=== PATIENT | male | born 1965 | race Caucasian/White ===

== ENCOUNTER 2023-05-13 12:27 | Outpatient (CLI) | payer MEDICAID, SELFPAY ==
--- NOTE | 2023-05-13 12:35 | XRR_ITS ---
PROCEDURE INFORMATION: Exam: XR Cervical Spine Exam date and time: 05/13/2023 12:51 PM Age: 58 years old Clinical indication: Injury or trauma; Fall; Concussion/head injury; Injury date: About a month ago; Additional info: Neuropathy in hands TECHNIQUE: Imaging protocol: Radiologic exam of the cervical spine. Views: 2 or 3 views. COMPARISON: No relevant prior studies available. FINDINGS: Bones/joints: Alignment is normal. Vertebral body height is maintained. There is moderate disc degeneration in the cervical spine. There is moderate multilevel facet spondylosis. No definite fracture is visible. The cervical spine is imaged through visible through C7 on the lateral view. The base of the dens is obscured on the lateral view by atlantodental osteophytes. The dens is also partially obscured by the teeth on the open-mouth view. Soft tissues: Visible soft tissues are unremarkable. XR/XR cervical spine 3V* [id number] IMPRESSION: 1. No acute findings. 2. Limited visualization of C1-C2. If there is clinical suspicion of fracture then CT is recommended. 3. Moderate cervical disc and facet degeneration.
--- NOTE | 2023-05-13 12:35 | XRR_ITS ---
PROCEDURE INFORMATION: Exam: XR Skull Exam date and time: 05/13/2023 12:51 PM Age: 58 years old Clinical indication: Injury or trauma; Fall; Blunt trauma (contusions or hematomas); Injury date: About a month ago; Additional info: Head truama TECHNIQUE: Imaging protocol: XR of the skull. Views: Minimum of 4 views. COMPARISON: No relevant prior studies available. FINDINGS: Sinuses: Paranasal sinuses are clear. Bones/joints: The skull is intact. Visible facial bones are unremarkable. Diffuse cervical disc degeneration. Soft tissues: Visible soft tissues are unremarkable. Other findings: Mastoids are well aerated. XR/XR skull min 4V* [id number] IMPRESSION: No acute findings.
== END 2023-05-13 12:28 | disposition home or self-care (01) ==
PROVIDERS: PCP Family Medicine; Visit Provider Family Medicine
DX: M50.30 Other cervical disc degeneration, unspecified cervical region (principal); M47.812 Spondylosis without myelopathy or radiculopathy, cervical region; G89.29 Other chronic pain; I10 Essential (primary) hypertension; Z86.718 Personal history of other venous thrombosis and embolism; W19.XXXA Unspecified fall, initial encounter
CPT/HCPCS: 70260; 72040; 80053; 80061; 83036; 84439; 84443; 85025; 85610

== ENCOUNTER → 2023-05-21 16:07 | Outpatient (BNVA) | payer MEDICAID, SELFPAY | PROVIDERS: PCP Family Medicine; Visit Provider Registered Nurse Neonatal Intensive Care | DX: R31.9 Hematuria, unspecified (principal) | CPT/HCPCS: 81000 ==

== ENCOUNTER 2023-05-27 07:08 | Outpatient (CLI) | payer MEDICAID, SELFPAY ==
--- NOTE | 2023-05-27 07:15 | MR_ITS ---
WS: [id number] MRI CERVICAL SPINE NONCONTRAST HISTORY: neck pain, neuropathy bilateral hands/feet with weakness COMPARISON: None available. Technique: Multiplanar, multisequence noncontrast imaging of the cervical spine. Mild straightening of the normal cervical lordosis. No fractures or marrow edema. Abnormal signal in the cervical cord at C3-4 extends over length of 12 mm. No syrinx. Craniocervical junction, C1 and C2 relationship, odontoid process and soft tissues are normal. C2-C3: Mild disc bulging and osteophytic ridging. Very mild bilateral foraminal stenosis. C3-C4: Marked annular disc bulge with a focal 6 central disc protrusion effacing CSF and displacing t he ventral cord. Marked ligamentum flavum and facet arthritis. There is a small amount of edema in th e facets, greatest on the RIGHT. Severe central and bilateral foraminal stenosis. Cord myelomalacia a t this level. C4-C5: Mild annular disc bulging with bilateral facet joint arthritis. Osteophytic ridging. Mild cent ral with moderate bilateral foraminal stenosis and moderate facet arthritis. C5-C6: Mild annular disc bulging with osteophytic ridging and moderate bilateral facet joint arthriti s. Mild central and RIGHT foraminal stenosis. Moderate LEFT foraminal stenosis. C6-C7: Diffuse annular disc bulging and osteophytic ridging. Moderate bilateral facet joint arthritis . Mild central and moderate bilateral foraminal stenosis. C7-T1: Mild to moderate bilateral foraminal stenosis. No significant central stenosis. Paraspinal soft tissue are normal. MR/MR cervical spin wo con* [id number] IMPRESSION: 1. Severe central and bilateral foraminal stenosis at C3-4 due to multiple fac tors including disc disease and facet joint arthritis and osteophytes. 2. Cervical cord myelomalacia at the C3-4 level extends over length of 12 mm. 3. C4-5 and C6-7: Moderate bilateral foraminal stenosis and mild central steno sis. 4. C5-6: Mild central and RIGHT foraminal stenosis with moderate LEFT foramina l stenosis. 5. C7-T1: Mild to moderate bilateral foraminal stenosis.
== END 2023-05-27 07:09 | disposition home or self-care (01) ==
PROVIDERS: PCP Family Medicine; Visit Provider Family Medicine
DX: M48.02 Spinal stenosis, cervical region (principal); M50.31 Other cervical disc degeneration, high cervical region; M25.78 Osteophyte, vertebrae; G95.89 Other specified diseases of spinal cord; G62.9 Polyneuropathy, unspecified; G89.29 Other chronic pain; R53.1 Weakness
CPT/HCPCS: 72141

== ENCOUNTER → 2023-06-03 08:26 | Outpatient (BNVA) | payer MEDICAID, SELFPAY | PROVIDERS: PCP Family Medicine; Referring Provider Family Medicine; Visit Provider Physician Assistant | DX: M48.02 Spinal stenosis, cervical region (principal); M54.12 Radiculopathy, cervical region; G99.2 Myelopathy in diseases classified elsewhere | CPT/HCPCS: 36415; 72050; 80053; 81001; 85025; 87086 ==

== ENCOUNTER 2023-06-08 16:03 | Inpatient (IN) | payer OTHER, MEDICAID, SELFPAY ==
[2023-06-05 13:15] VITALS: BMI 32.8
[2023-06-08] VITALS (21 sets, daily range): BP systolic 124–171; BP diastolic 82–112; PULSE 67–100; RESP 16–18; TEMP 36.3–36.9; O2SAT 90–100
--- NOTE | 2023-06-08 | XR_ITS ---
WS: [id number] XR cervical spine 3V* [id number] REASON FOR EXAM: or pic. ACDF C3-4; C4-5 FINDINGS: Anterior plate and screw fixation with interbody fusion devices C3-C5. Surgical appliances are intact and in proper position and alignment. XR/XR cervical spine 3V* [id number] IMPRESSION: Anterior cervical fusion as above.
[2023-06-08] MEDS: sodium chloride 0.9% 1,000 ML 30 ML IV (12:38)
[2023-06-08 12:45] LABS: Add Urine Microscopic? YES; Bilirubin Urine Neg (Negative); Blood Urine 3+ (Negative); Glucose Urine UA Norm (Normal); Ketones Urine 1+ (Negative); Leukocyte Esterase Urine Negative (Negative); Nitrate Urine Negative (Negative); Protein Urine Neg (Negative); Specific Gravity, Urine 1.015 (1.005-1.030); Urine Appearance Clear (CLEAR); Urine Color Yellow (Yellow); Urobilinogen Urine Norm (Negative); pH Urine 6 (5-7)
[2023-06-08 12:46] LABS: Add Urine Culture? Yes; Bacteria Urine TRACE /hpf; Squamous Epithelial Cell Urine 0-4 /hpf (0-5); WBC Urine 0-4 /hpf (0-5)
--- NOTE | 2023-06-08 12:48 | P.ANESASSM_ITS ---
Pre-Anesthetic Assessment Height/Weight: Height 1.8 m Weight 106.594 kg Temp Pulse Resp BP Pulse Ox O2 Del Method 98.5 F 76 16 139/94 96 Room Air 06/08/23 12:11 06/08/23 12:11 06/08/23 12:11 06/08/23 12:11 06/08/23 12:11 06/08/23 12:14 Operation Date: 06/08/23 12:50 Proposed Procedures p 20654 C 3/4, 22600 C5/6, 49677 x 2 Cage, 12768 Instrumentation, 84993 Allograft, 13359, navigation G95.9 Disease of spinal cord , M48.02 spinal stenosis cervical region, M54.12 Radiculopathy cervical region(Not Applicable) - Lul Be, DO Familial anesthetic complications: None Was Beta Holly taken within 24 hours: Yes Was Clonidine taken within 24 hours: N/A Last intake: Intake Last Liquid Date 06/08/23 Last Liquid Time 08:00 Last Solid Date 06/07/23 Last Solid Time 23:55 Social No alcohol and No tobacco Exam alert, oriented x 3, clear to auscultation bilaterally and regular rate & rhythm Airway Mallampati: Class II Dentition: other (missing) CV/HEM Atrial Fibrillation (one episode) and Hypertension hx blood clot in aorta GI Gastroesophageal Reflux Disease Musc/skel lupus Anesthetic Plan ASA status: 3 Anesthesia: General Risk of > 500 ml blood loss (7ml/kg in children): No Medications/Allergies Home Medications Medication Instructions Recorded Confirmed Last Taken Type amlodipine 5 mg tablet 5 mg PO DAILY #90 tabs 05/13/23 06/05/23 06/08/23 Rx atorvastatin 40 mg tablet (Lipitor) 40 mg PO DAILY #90 tabs 05/13/23 06/05/23 06/07/23 Rx gabapentin 300 mg capsule 300 mg PO TID #90 caps 05/13/23 06/05/23 06/08/23 Rx lisinopril 20 mg tablet 20 mg PO DAILY #90 tabs 05/13/23 06/05/23 06/07/23 Rx metoprolol succinate 50 mg 50 mg PO DAILY #90 tabs 05/13/23 06/05/23 06/08/23 Rx tablet,extended release 24 hr omeprazole 40 mg capsule,delayed 40 mg PO DAILY #30 caps 05/13/23 06/05/23 06/08/23 Rx release apixaban 5 mg tablet (Eliquis) 5 mg PO BID #180 tabs 05/28/23 06/05/23 06/05/23 Rx hydrocodone 7.5 mg-acetaminophen 1 tab PO Q8H PRN pain 14 days #42 05/28/23 06/05/23 06/08/23 Rx 325 mg tablet tabs Cervical collar #1 ea 06/03/23 06/03/23 Unknown Rx prednisone 20 mg tablet 20 mg PO DAILY #15 tabs 06/03/23 06/05/23 06/08/23 Rx sulfamethoxazole 800 1 tab PO BID UTI 10 days #20 tabs 06/04/23 06/05/23 06/08/23 Rx mg-trimethoprim 160 mg tablet (Bactrim DS) Allergies Allergy/AdvReac Type Severity Reaction Status Date / Time No Known Allergies Allergy Verified 06/05/23 16:40 Current Medications Generic Name Dose Route Start Last Admin Trade Name Freq PRN Reason Stop Dose Admin Sodium Chloride 1,000 mls @ 30 mls/hr 06/08/23 12:00 06/08/23 12:38 Sodium Chloride 0.9% IV 06/09/23 11:59 30 mls/hr .Q24H SONNY Administration PFSH Anesthesia Medical History Heartburn History of blood clots History of traumatic head injury Hypercholesteremia Hypertension Lupus Family History Sister Cancer lung, hodgkins lymphoma Other CAD (coronary artery disease) Chronic kidney disease (CKD) Hyperlipidemia Hypertension Lung disease Stroke Denies family history of Diabetes Clotting disorder Dementia Psychiatric illness Anesthesia complication Bleeding disorder Social History Smoking and tobacco status: never smoked Alcohol intake: never Substance/Drug Use: never Lives independently: Yes Current occupational status: unemployed and disabled Special lena needs: No Agree to transfusion: Yes Data Anesthesia Urine 06/08/23 Range/Units 12:05 Urine Color Yellow (Yellow) Urine Appearance Clear (CLEAR) Urine pH 6 (5-7) Ur Specific [place] 1.015 (1.005-1.030) Urine Protein Neg (Negative) Urine Glucose (UA) Norm (Normal) Urine Ketones 1+ H (Negative) Urine Nitrate Negative (Negative) Urine Bilirubin Neg (Negative) Ur Leukocyte Esterase Negative (Negative) Urine RBC 10-15 H (0-2) /hpf Urine WBC 0-4 H (0-5) /hpf Cardiac Studies: No Data to Display
[2023-06-08] MEDS: fentaNYL 50 mcg/mL INJ 2mL IVP ×3 (12:49→15:50)
[2023-06-08] MEDS: ceFAZolin 2,000 MG in sodium chloride 0.9% (plus) 50 ML 100 MG IV (13:05)
[2023-06-08] MEDS: lidocaine-epi 2% 20 mL INJ (13:39)
--- NOTE | 2023-06-08 15:17 | PM.OP ---
Operative Report Date of procedure: June 08, 2023 Pre-op diagnosis: cervical spondylosis with myelopathy Post-op diagnosis: same Procedure done: 1. Anterior diskectomy C3/4 2. Anterior discectomy C4/5 3. Insertion of cage C3/4 4. Insertion of Cage C4/5 5. Instrumentation with anterior plate from C3-C5 6. Use of allograft Surgeon: Lul Be Raised Printer: Maykel Lovett Raised Printer: The certified surgical tech/first assistant, Maykel Lovett, PAC was needed for his expertise under the microscope. He was important and necessary throughout the procedure to complete in a safe and timely manner. He assisted with patient positioning prepping and draping tissue retraction suctioning of the operative field protection of the dural sac and tissue closure Estimated blood loss (mL): 20 Procedure: 1. Anterior diskectomy C3/4 2. Anterior discectomy C4/5 3. Insertion of cage C3/4 4. Insertion of Cage C4/5 5. Instrumentation with anterior plate from C3-C5 6. Use of allograft The patient was taken to the operating room, where he underwent general endotracheal anesthesia without complications. He was then positioned supine on the operating table, and all areas of impingement were well padded. The arms were carefully padded and tucked at his sides. A roll was placed between the shoulder blades.. An x-ray was done to determine the appropriate level for the skin incision. The entire neck was then sterilely prepped and draped in the usual fashion. Neuromonitoring was attached prior to prepping. A transverse skin incision was made and carried down to the platysma muscle. This was then split in line with its fibers. Blunt dissection was carried down medial to the carotid sheath and lateral to the trachea and esophagus until the anterior cervical spine was visualized. A needle was placed into a disc and an x-ray was done to determine its location. The longus colli muscles were then elevated bilaterally with the electrocautery unit. Self-retaining retractors were placed deep to the longus colli muscle. Attention was brought to the C3/4 level that was confirmed on x-ray. A caspar pin was placed into the C3 vertebrae and the C4 vertebrae. The disk space was then distracted. The microscope was then brought in. A radical anterior discectomies were performed at C3/4. This included complete removal of the anterior annulus, nucleus, and posterior annulus. The posterior longitudinal ligament was removed as were the posterior osteophytes. Foraminotomies were then accomplished bilaterally. This was done using a high speed bereket, kerrison rongeurs and curretes Once all of this was accomplished, the curved currette was used to check for any residual compression. The central canal was wide open as were the foramen. A high-speed bur was used to remove the cartilaginous endplates above and below the interspace. Bleeding cancellous bone was exposed. The disc space were measured and appropriate size cage were placed sterilely onto the field. Allograft graft was packed into the cages. The cage was then placed and there was good juxtaposition against the bleeding decorticated surfaces and good distraction of each interspace. Attention was brought to the next interspace. The [place] pins were removed. Bone wax was used to prevent any bleeding from occurring at the pin sites. Attention was brought to the C4/5 level that was confirmed on x-ray. A caspar pin was placed into the C4 vertebrae and the C5 vertebrae. The disk space was then distracted. The microscope was then brought in. A radical anterior discectomies were performed at C4/5. This included complete removal of the anterior annulus, nucleus, and posterior annulus. The posterior longitudinal ligament was removed as were the posterior osteophytes. Foraminotomies were then accomplished bilaterally. This was done using a high speed bereket, [place]err[place] rongeurs and curretes Once all of this was accomplished, the curved currette was used to check for any residual compression. The central canal was wide open as were the foramen. A high-speed bur was used to remove the cartilaginous endplates above and below the interspace. Bleeding cancellous bone was exposed. The disc space were measured and appropriate size cage were placed sterilely onto the field. Allograft graft was packed into the cages. The cage was then placed and there was good juxtaposition against the bleeding decorticated surfaces and good distraction of each interspace. Attention was brought to the next interspace. The [place] pins were removed. Bone wax was used to prevent any bleeding from occurring at the pin sites. The appropriate size anterior cervical locking plate was chosen and bent into gentle lordosis. Two screws were then placed into each of the vertebral bodies at []. There was excellent purchase. A final x-ray was done confirming good position of the hardware and Cages. The locking screws were then applied, also with excellent purchase. Following a final copious irrigation, there was good hemostasis and no dural leaks. The carotid pulse was strong. The wounds were then closed in layers using 2-0 Vicryl suture for the platysma muscle, 2-0 Vicryl suture for the subcutaneous tissue, and 4-0 monocryl suture in a subcuticular skin closure. Glue was placed followed by application of a sterile dressing. The drain was hooked to bulb suction. A soft collar was applied. The patient was then carefully returned to the supine position on his hospital bed where he was reversed and extubated and taken to the recovery room having tolerated the procedure well.
[2023-06-08] MEDS: HYDROmorphone 1 mg/mL INJ 1 mL 0.5 MG IVP ×2 (16:00→21:58)
--- NOTE | 2023-06-08 16:05 | ANE.PACU2 ---
Inpatient post-anesthesia follow up: Airway intact: Yes Vital signs: Temperature 98 F Pulse Rate 90 Respiratory Rate 17 Blood Pressure 130/91 Pulse Oximetry 96 Oxygen Delivery Me thod Nasal Cannula Oxygen Flow Rate 2 Fraction of Inspir ed Oxygen Hydration adequate: Yes Nausea and vomiting: Yes Pain level: 1 Mental status: Baseline
[2023-06-08] MEDS: HYDROcodone-acetaminophen 5-325 mg Tablet PO ×2 (18:26→22:45)
[2023-06-08] MEDS: gabapentin 300 mg Capsule PO (20:01)
[2023-06-08] MEDS: atorvastatin 40 mg Tablet PO (20:01)
[2023-06-09 04:00] VITALS: BP 130/91; PULSE 90; RESP 17; TEMP 36.6; O2SAT 96
[2023-06-09] MEDS: HYDROcodone-acetaminophen 5-325 mg Tablet PO ×5 (06:02→22:19)
--- NOTE | 2023-06-09 07:15 | PC.PHAR ---
discharge orders and medications were put in on thursday06/08/23 for norco 10-325mg from could not do med rec with discharge medications in
--- NOTE | 2023-06-09 07:35 | PM.PN ---
Subjective Subjective: POD 1 Patient resting comfortably. Reports neck pain weakness in both arms but his pain has improved. Denies shortness of breath, chest pain, headaches. Vitals/I&O/Wt Last Vital Signs Temp 98 F 06/09/23 04:00 Pulse 90 06/09/23 04:00 Resp 17 06/09/23 04:00 BP 130/91 06/09/23 04:00 Pulse Ox 96 06/09/23 04:00 O2 Del Method Nasal Cannula 06/08/23 16:35 O2 Flow Rate 2 06/08/23 16:13 06/08/23 06/09/23 06/09/23 22:59 06:59 14:59 Intake Total 320 / 370 Output Total 50 / 50 1300 / 1350 1000 / 1000 Balance 270 / 320 -1300 / -980 -1000 / -1000 Physical Exam Narrative: Patient is alert and oriented x3 with a good general appearance normal mood and affect. Mildly tender with palpation about the incisional site. Incision appears to be healing nicely without signs of erythema or drainage. No signs of infection. Good motor strength throughout both upper extremities. Appears to fire in all motor groups with 4/5 strength. Hands are warm good cap refill in all digits. Normal sensation to light touch in all dermatomal areas. A&P Assessment and plan (1) Cervical myelopathy with cervical radiculopathy: He will continue wearing the [place] J collar. Will discharge home after physical therapy evaluates. See him back in the office in 2 weeks time for wound check. (2) Status post cervical spinal fusion: Attestations Medical Necessity Statement*: [place] home Coding Level of Care Code Acute Code for [facility] Diagnoses Cervical myelopathy with cervical radiculopathy G95.9; M54.12 Status post cervical spinal fusion Z98.1
[2023-06-09 07:55] VITALS: BP 122/82; PULSE 78; RESP 18; TEMP 36.7; O2SAT 92
[2023-06-09] MEDS: metoprolol succinate ER (24 HR) 50 mg Tablet PO (08:20)
[2023-06-09] MEDS: predniSONE 20 mg Tablet PO (08:20)
[2023-06-09] MEDS: amlodipine 5 mg Tablet PO (08:20)
[2023-06-09] MEDS: lisinopril 20 mg Tablet PO (08:20)
[2023-06-09] MEDS: pantoprazole DR 40 mg Tablet PO (08:20)
[2023-06-09] MEDS: gabapentin 300 mg Capsule PO ×3 (08:20→20:13)
[2023-06-09 08:21] VITALS: RESP 18
[2023-06-09] MEDS: HYDROmorphone 1 mg/mL INJ 1 mL 0.5 MG IVP (08:21)
--- NOTE | 2023-06-09 09:39 | PC.CHAP ---
Pastoral Care Encounter/Spiritual Assessment Type of Contact [] Declined finishing operator visit [] Patient/Family/Request visit [] Outpatient visit [] Follow-up visit [] Physician referral [] Code/Alert [] Routine visit [] Staff referral [] Actively dying [x] Patient sleeping [] Family support [] [] Out of room [] Palliative care [] [] Receiving care in room [] Pre-surgical visit [] Trauma [] Long length of stay [] ICU visit [] Other: Relational/Emotional Strength [] Patient feels connected with others/family/visitors/staff [] Distress [] Loneliness/isolation [] Abandonment Spirituality of Patient [] Person of Virginie [] Attends Rastafarian of their Virginie [] Believes in Prayer [] Reads Bible or Nondenominational materials [] There are Spiritual issues to be addressed Crowd Controller Interventions [] Prayer [] Active listening [] Non-anxious presence [] Spiritual/emotional support [] Crisis/trauma care [] Spiritual counseling [] Bereavement support [] Provided bereavement packet [] Provided Bible/devotional materials [] Provided toy/stuffed animal, coloring book to patient or family member [] Provided Communion [] Anointing/[place]olo [] Salvation [] Completed spiritual assessment [] Other: Impact on Illness or Injury [] Angry [] Fearful [] Anxious [] Often cries [] Exhaustion [] Unable to work [] Unable to attend congregation [] Unable to walk/stand [] Unable to read [] Unable to drive [] Unable to eat/drink [] Unable to sleep [] Unable to be with family [] Patient intubated [] Other: Summary Time spent with patient
[2023-06-09 11:16] VITALS: BP 126/82; PULSE 80; RESP 18; TEMP 36.7; O2SAT 93
[2023-06-09 16:00] VITALS: BP 116/75; PULSE 66; RESP 16; TEMP 36.8; O2SAT 92
[2023-06-09 19:17] VITALS: BP 106/69; PULSE 81; RESP 17; TEMP 36.7; O2SAT 91
[2023-06-09] MEDS: atorvastatin 40 mg Tablet PO (20:13)
[2023-06-10] VITALS (7 sets, daily range): BP systolic 83–104; BP diastolic 50–68; PULSE 68–88; RESP 16–18; TEMP 36.3–37; O2SAT 90–94
[2023-06-10] MEDS: HYDROcodone-acetaminophen 5-325 mg Tablet PO ×5 (03:57→23:55)
--- NOTE | 2023-06-10 06:21 | PM.PN ---
Subjective Subjective: POD 2 Patient resting comfortably this morning. States his arms and hands are improving significantly. He has more motion less pain. He denies any swallowing difficulties denies any voice changes. He denies any chest pain or shortness of breath. Denies any headaches. Vitals/I&O/Wt Last Vital Signs Temp 98.3 F 06/10/23 03:38 Pulse 70 06/10/23 03:38 Resp 18 06/10/23 03:38 BP 103/68 06/10/23 03:38 Pulse Ox 93 06/10/23 03:38 O2 Del Method Room Air 06/09/23 11:16 O2 Flow Rate 2 06/08/23 16:13 06/09/23 06/09/23 06/10/23 14:59 22:59 06:59 Intake Total 360 / 360 540 / 900 Output Total 1000 / 1000 1150 / 2150 Balance -640 / -640 -610 / -1250 Physical Exam Narrative: Patient is alert and oriented x3 with a good general appearance normal mood and affect. Nontender with palpation about the incisional site. Incision appears to be healing nicely without signs of erythema or drainage. No signs of infection. Good motor strength throughout both upper extremities. Appears to fire in all motor groups with 5/5 strength. Hands are warm good cap refill in all digits. Normal sensation to light touch in all dermatomal areas. Data Micro: Microbiology 06/08/23 12:05 Urine Culture - Preliminary Urine,Clean Catch A&P Assessment and plan (1) Status post cervical spinal fusion: Encouraged patient to continue walking program with no lifting more than 10 pounds no overhead lifting. Continue to wear the [place] collar. Continue incentive spirometry for pulmonary toilet. He is high risk of bleeding to continue the SCDs for DVT prophylaxis. Will see him back in the office in 1 week's time. We are awaiting placement to a rehab facility per physical therapy's recommendation. He will call if he is having any problems in the meantime. (2) Cervical myelopathy with cervical radiculopathy: Attestations Medical Necessity Statement*: Discharge to rehab facility when placement found Coding Level of Care Code Acute Code for [facility] Diagnoses Status post cervical spinal fusion Z98.1 Cervical myelopathy with cervical radiculopathy G95.9; M54.12
[2023-06-10] MEDS: pantoprazole DR 40 mg Tablet PO (08:22)
[2023-06-10] MEDS: gabapentin 300 mg Capsule PO ×3 (08:22→19:57)
[2023-06-10] MEDS: predniSONE 20 mg Tablet PO (08:22)
[2023-06-10] MEDS: amlodipine 5 mg Tablet PO (08:32)
[2023-06-10] MEDS: lisinopril 20 mg Tablet PO (08:32)
[2023-06-10] MEDS: metoprolol succinate ER (24 HR) 50 mg Tablet PO (08:32)
[2023-06-10] MEDS: atorvastatin 40 mg Tablet PO (19:57)
[2023-06-10] MEDS: HYDROmorphone 1 mg/mL INJ 1 mL 0.5 MG IVP (20:56)
[2023-06-11] VITALS: BP 96/67; PULSE 85; RESP 18; TEMP 37; O2SAT 91
[2023-06-11] MEDS: HYDROcodone-acetaminophen 5-325 mg Tablet PO ×2 (03:49→08:34)
[2023-06-11 04:59] VITALS: BP 114/74; PULSE 73; RESP 16; TEMP 37; O2SAT 96
--- NOTE | 2023-06-11 07:26 | PM.PN ---
Subjective Subjective: POD 3 Patient reports she is feeling much better having increased movement of his arms. He is requesting to go home today. Vitals/I&O/Wt Last Vital Signs Temp 98.6 F 06/11/23 04:59 Pulse 73 06/11/23 04:59 Resp 16 06/11/23 04:59 BP 114/74 06/11/23 04:59 Pulse Ox 96 06/11/23 04:59 O2 Del Method Room Air 06/10/23 16:00 O2 Flow Rate 2 06/08/23 16:13 06/10/23 06/11/23 06/11/23 22:59 06:59 14:59 Intake Total 360 / 960 Output Total 600 / 700 775 / 1475 Balance -240 / 260 -775 / -515 Physical Exam Narrative: Patient is alert and oriented x3 with a good general appearance normal mood and affect.? Mildly tender with palpation about the incisional site.? Incision appears to be healing nicely without signs of erythema or drainage.? No signs of infection.? Good motor strength throughout both upper extremities.? Appears to fire in all motor groups with 4/5 strength.? Hands are warm good cap refill in all digits.? Normal sensation to light touch in all dermatomal areas. Data Micro: Microbiology 06/08/23 12:05 Urine Culture - Final Urine,Clean Catch A&P Assessment and plan (1) Status post cervical spinal fusion: Patient is mobilizing and feeling much better. Plan will be to discharge home today. No bending lifting or twisting. Continue [place] J collar. Continue incentive spirometer at home. Will see him back in the office in 1 week's time for wound check. Attestations Medical Necessity Statement*: Discharge home this morning. Coding Level of Care Code Acute Code for [facility] Diagnoses Status post cervical spinal fusion Z98.1
[2023-06-11 07:49] VITALS: BP 123/86; PULSE 85; RESP 16; TEMP 36.3; O2SAT 91
[2023-06-11] MEDS: metoprolol succinate ER (24 HR) 50 mg Tablet PO (08:34)
[2023-06-11] MEDS: gabapentin 300 mg Capsule PO (08:34)
[2023-06-11] MEDS: pantoprazole DR 40 mg Tablet PO (08:34)
[2023-06-11] MEDS: amlodipine 5 mg Tablet PO (08:34)
[2023-06-11] MEDS: lisinopril 20 mg Tablet PO (08:34)
[2023-06-11] MEDS: predniSONE 20 mg Tablet PO (08:34)
--- NOTE | 2023-06-11 11:11 | PC.NURSE ---
patient verbalized understanding of discharge instructions, home medications, and follow up appointments.
[2023-06-11 12:49] VITALS: BP 123/86; PULSE 85; RESP 16; TEMP 36.3; O2SAT 91
--- NOTE | 2023-06-13 09:24 | PM.DCS ---
Discharge Providers Date of Admission: 06/08/23 16:03 Date of Discharge: June 11, 2023 Attending Provider at Admission: Lul Be DO Attending Provider at Discharge: Lul Be DO Primary Care Provider: Matteo French MD Diagnoses at Discharge Discharge Diagnosis (1) Status post cervical spinal fusion: Status: Acute Reason for Visit Reason for Visit: M48.02,G95.5,M54.12 Discharge Data Studies Completed and Pending Completed Studies During Hospitalization Category Date Time Status XR cervical spine 3V* [id number] Routine Exams 06/08/23 Completed Radiology Impressions Cervical Spine X-Ray 06/08/23 00:00 IMPRESSION: Anterior cervical fusion as above. Laboratory Results Urine Color Yellow (Yellow) 06/08/23 12:05 Urine Appearance Clear (CLEAR) 06/08/23 12:05 Urine pH 6 (5-7) 06/08/23 12:05 Ur Specific [place] 1.015 (1.005-1.030) 06/08/23 12:05 Urine Protein Neg (Negative) 06/08/23 12:05 Urine Glucose (UA) Norm (Normal) 06/08/23 12:05 Urine Ketones 1+ (Negative) H 06/08/23 12:05 Urine Blood 3+ (Negative) H 06/08/23 12:05 Urine Nitrate Negative (Negative) 06/08/23 12:05 Urine Bilirubin Neg (Negative) 06/08/23 12:05 Urine Urobilinogen Norm mg/dL (Negative) 06/08/23 12:05 Ur Leukocyte Esterase Negative (Negative) 06/08/23 12:05 Urine RBC 10-15 /hpf (0-2) H 06/08/23 12:05 Urine WBC 0-4 /hpf (0-5) H 06/08/23 12:05 Ur Squamous Epith Cells 0-4 /hpf (0-5) H 06/08/23 12:05 Amorphous Sediment Not Reportable 06/08/23 12:05 Urine Bacteria Trace /hpf (NONE) 06/08/23 12:05 Vitals Last Vital Signs Temp 97.4 F L 06/11/23 12:49 Pulse 85 06/11/23 12:49 Resp 16 06/11/23 12:49 BP 123/86 06/11/23 12:49 Pulse Ox 91 06/11/23 12:49 O2 Del Method Room Air 06/10/23 16:00 O2 Flow Rate 2 06/08/23 16:13 Discharge Plan Discharge Patient Disposition: Home Condition: Stable Prescriptions: New hydrocodone-acetaminophen 10-325 mg tablet 1 tab PO Q4H PRN (Reason: pain) 7 Days Qty: 40 0RF Continued amlodipine 5 mg tablet 5 mg PO DAILY Qty: 90 1RF lisinopril 20 mg tablet 20 mg PO DAILY Qty: 90 1RF metoprolol succinate 50 mg tablet extended release 24 hr 50 mg PO DAILY Qty: 90 1RF atorvastatin [Lipitor] 40 mg tablet 40 mg PO DAILY Qty: 90 1RF gabapentin 300 mg capsule 300 mg PO TID Qty: 90 0RF omeprazole 40 mg capsule,delayed release(DR/EC) 40 mg PO DAILY Qty: 30 0RF Eliquis 5 mg tablet 5 mg PO BID Qty: 180 2RF hydrocodone-acetaminophen 7.5-325 mg tablet 1 tab PO Q8H PRN (Reason: pain) 14 Days Qty: 42 0RF prednisone 20 mg tablet 20 mg PO DAILY Qty: 15 0RF Rx Instructions: Take 60 mg daily for days 1, 2, 3 Take 40 mg daily for days 4, 5 Take 20 mg daily for days 6, 7 (DME) Cervical collar See Rx Instructions .Route .MEDSUPPLY Qty: 1 0RF Rx Instructions: As directed sulfamethoxazole-trimethoprim [Bactrim DS] 800-160 mg tablet 1 tab PO BID 10 Days Qty: 20 0RF Discharge Orders: Discharge Order (Routine); Ordered 06/11/23 Ordered By: Maykel Lovett Referrals: Lul Be DO [Physician] - 06/23/23 11:15 am Matteo French MD [Primary Care Provider] - 06/18/23 3:00 pm ( ) Discharge Diet: Advance as tolerated Discharge Activity: Limit activity as instructed Patient Instructions: Hydrocodone/Acetaminophen (By mouth) (Vicodin, [place], Lortab), Anterior Cervical Discectomy (GEN) Activity Restrictions/Additional Instructions: Thank you for choosing [facility] for your care! The following is a list of instructions, from your provider, to follow upon your discharge to ensure you have the optimal recovery from your recent injury or surgery. Anterior Cervical Discectomy and Fusion: What to Expect at Home Your Recovery Follow-up care is a tamayo part of your treatment and safety. Be sure to make and go to all appointments, and call your doctor if you are having problems. If you do not already have a follow-up appointment made, call office in the next 1-3 days to make follow up appointment for 2 weeks at [phone]. It is also a good idea to know your test results and keep a list of the medicines you take. You can expect your neck to feel stiff or sore after surgery. This should improve in the weeks after surgery. But it may take 4 to 6 months for you to get better completely. You may have trouble sitting or standing in one position for very long and may need pain medicine in the weeks after your surgery. It may take 4 to 6 weeks to get back to your usual activities, but it may depend on what kind of surgery you had. Your throat will feel sore and it may be difficult to swallow for the first 3 days after your surgery. As long as you can get liquids down without difficulty, this should slowly improve, otherwise call our office or seek medical attention if it becomes increasingly difficult to get anything down including liquids. Avoid hot liquids for first 3-5 days. Soothing foods/liquids such as jello, pudding, and luke warm soups are recommended until swallowing improves. Staying elevated will also help, it's advised you keep propped up at while sleeping to help reduce the swelling. You may use an ice pack directly on your incision or around it on the front of your neck, using a cloth to protect your skin; and a heating pad to the back of your neck as needed. Do not use over the counter anti-inflammatory medications (Ibuprofen, Motrin, Aleve, Advil, etc) Taking these meds after having a fusion can delay fusion rates, we recommend you avoid them for the first 3 months after your surgery[address] Dr. Be may advise you to work with a physical therapist to strengthen the muscles around your neck and back - this will be discussed at your follow - up appointments. The pain or numbness you were having in your arms before surgery should get better or go away completely. This care sheet gives you a general idea about how long it will take for you to recover. But each person recovers at a different pace. Follow the steps below to get better as quickly as possible. How can you care for yourself at home? Activity ? Rest when you feel tired. Getting enough sleep will help you recover. ? Try to walk each day. Start by walking a little more than you did the day before. Bit by bit, increase the amount you walk. Walking boosts blood flow and helps prevent pneumonia and constipation. Walking may also decrease your muscle soreness after surgery. ? No lifting anything that is more that 5 pounds. This may include heavy grocery bags and milk containers, a heavy briefcase or backpack, cat litter or dog food bags, a child, or a vacuum janitor and cleaner. ? Avoid strenuous activities, such as bicycle riding, jogging, weightlifting, or aerobic exercise, until your doctor says it is okay. ? Do not drive until your follow-up visit after your surgery, or until your doctor says it isokay. ? Avoid taking long car trips for 2 to 4 weeks after surgery. Your neck may become tired and painful from sitting too long in one position. ? You will probably need to take 4 to 6 weeks off from work. It depends on the type of work you do and how you feel. ? You may have sex as soon as you feel able, but avoid positions that put stress on your neck or cause pain. Diet ? You can eat your normal diet. If your stomach is upset, try bland, low-fat foods like plain rice, broiled chicken, toast, and yogurt ? Drink plenty of fluids. If you have kidney, heart, or liver disease and have to limit fluids, talk with your doctor before you increase the amount of fluids you drink. ? You may notice that your bowel movements are not regular right after your surgery. This is common. Try to avoid constipation and straining with bowel movements. You may want to take a fiber supplement every day. If you have not had a bowel movement after a couple of days, ask your doctor about taking a mild laxative. Medicines ? Take pain medicines exactly as directed. 1. If Dr. Be gave you a prescription medicine for pain, take lt as prescribed. 2. Do not take two or more pain medicines at the same time unless the doctor told you to. Many pain medicines have acetaminophen, which is Tylenol. Too much acetaminophen {Tylenol) can be harmful. 3. If you think your pain pill is making you sick to your stomach: 4. Take your pills after meals (unless your doctor has told you not to). 5. Ask your Dr. for a different pain pill. Incisioncare ? Remove your dressing 48hours after your surgery. Ok to shower and get the incision wet. Do not overtly wash your incision. When done, pad dry, leave open to air thereafter. Avoid creams and ointments directly on your incision. ? Your sutures in the incision will dissolve and fall out on their own. ? Keep the area clean and dry. You may cover it with a gauze bandage if it weeps or rubs against clothing; if you choose to do this, change the dressing everyday. Other instructions ? Use a heating pad, hot water bottle, or gentle massage on your back to reduce stiffness. Avoid putting heat on your incision When should you call for help? ? Call 911 anytime you think you may need emergency care. For example, call if: ? You pass out (lose consciousness). ? You have sudden chest pain and shortness of breath, or you cough upblood. ? You cannot swallow. ? You have severe pain in your neck or back. ? Call your Dr. or seek immediate medical care if: ? You have pain that does not get better after you take pain pills. ? You have loose stitches, or your incision comes open. ? You have blood or fluid draining from the incision. ? You have signs of infection, such as: 1. Increased pain, swelling, warmth, or redness. 2. Red streaks leading from the site. 3. Pus draining from the site. 4. Swollen lymph nodes in your neck or armpits. 5. A fever. ? You have severe pain in your arms. ? You have new or increased weakness or numbness in your arms. ? Watch closely for any changes in your health, and be sure to contact your doctor if: ? You do not have a bowel movement after taking a laxative. Discharge Attestations Time Spent in Discharge Care*: less than 30 min Quality Metrics Clinical Quality Measures [ No reported AMI, CVA or VTE this stay] Coding Level of Care Code Acute Code for Chg Fwd Diagnoses Status post cervical spinal fusion Z98.1
== END 2023-06-11 12:52 | disposition home or self-care (01) | DRG 473 ==
LOC: MEDSURG 06-09 06:12
PROVIDERS: Physician Assistant; Admitting Provider Orthopaedic Surgery; PCP Family Medicine; Visit Provider Orthopaedic Surgery
PROC: 0RB30ZZ Excision of Cervical Vertebral Disc, Open Approach (ICD-10-PCS; CPT 22551; principal; 2023-06-08 12:20)
DX: M50.01 Cervical disc disorder with myelopathy, high cervical region (principal); M50.11 Cervical disc disorder with radiculopathy, high cervical region; M48.02 Spinal stenosis, cervical region; Z86.16 Personal history of COVID-19; I48.91 Unspecified atrial fibrillation; I10 Essential (primary) hypertension; K21.9 Gastro-esophageal reflux disease without esophagitis; M32.9 Systemic lupus erythematosus, unspecified; Z79.01 Long term (current) use of anticoagulants; Z79.891 Long term (current) use of opiate analgesic; Z79.52 Long term (current) use of systemic steroids
CPT/HCPCS: 72040; 76000; 81001; 87086; 97116; 97162; 97530; C1713; C1763; C9359; J0330; J0690; J1100; J1170; J2250; J2405; J2704; J2710; J3010; J3490; J7030; J7512

== ENCOUNTER 2023-06-29 12:42 | Outpatient (CLI) | payer MEDICAID, SELFPAY | END 2023-06-29 12:43 | disposition home or self-care (01) | LOC: SPT 12:44 | PROVIDERS: PCP Family Medicine; Visit Provider Physician Assistant | DX: Z46.89 Encounter for fitting and adjustment of other specified devices (principal); G95.9 Disease of spinal cord, unspecified; M54.12 Radiculopathy, cervical region; M48.02 Spinal stenosis, cervical region | CPT/HCPCS: L0172 ==

== ENCOUNTER → 2023-07-28 09:04 | Outpatient (BNVA) | payer MEDICAID, SELFPAY | PROVIDERS: PCP Family Medicine; Visit Provider Physician Assistant | DX: Z98.1 Arthrodesis status (principal) | CPT/HCPCS: 72040 ==

== ENCOUNTER → 2023-08-06 14:06 | Outpatient (BNVA) | payer MEDICAID, SELFPAY | PROVIDERS: PCP Family Medicine; Visit Provider Physician Assistant | DX: M47.817 Spondylosis without myelopathy or radiculopathy, lumbosacral region (principal) | CPT/HCPCS: 72110 ==

== ENCOUNTER 2023-08-06 15:02 | Emergency (ER) | payer MEDICAID, SELFPAY ==
[2023-08-06 15:07] VITALS: BP 120/82; PULSE 102; RESP 18; TEMP 36.7; O2SAT 97
--- NOTE | 2023-08-06 16:03 | CTR_ITS ---
PROCEDURE INFORMATION: Exam: CT Pelvis With Contrast Exam date and time: 08/06/2023 4:52 PM Age: 58 years old Clinical indication: Other: Pilonidal cyst at superior aspect of gluteal cleft TECHNIQUE: Imaging protocol: Computed tomography of the pelvis with contrast. Radiation optimization: All CT scans at this facility use at least one of these dose optimization techniques: automated exposure control; mA and/or kV adjustment per patient size (includes targeted exams where dose is matched to clinical indication); or iterative reconstruction. Contrast material: OMNI 350; Contrast volume: 100 ml; Contrast route: INTRAVENOUS (IV); REPORTING DATA: Count of CT and Cardiac NM exams in prior 12 months: This patient has received 0 known CTs and 0 known cardiac nuclear medicine studies in the 12 months prior to the current study. COMPARISON: CR XR lumbar spine min 4V [id number] 08/06/2023 2:08 PM RADIATION DOSE METRICS: Total DLP (mGy-cm): 646.08 FINDINGS: Stomach and bowel: Colonic diverticula are present although there are no CT findings to suggest diverticulitis. No bowel obstruction. Appendix: No evidence of appendicitis. Intraperitoneal space: Unremarkable. No free air. No significant fluid collection. Lymph nodes: Unremarkable. No enlarged lymph nodes. Urinary bladder: Normal. No mass. Reproductive: Normal as visualized. Bones/joints: Unremarkable. No acute fracture. No dislocation. Soft tissues: There is fluid and inflammation in the subcutaneous fat of the posterior right pelvic wall. This is just to the right of the gluteal cleft. No discrete cyst is identified as seen on coronal image 55. There is no associated gas or calcification. There is thickening of the overlying skin. CT/CT pelvis w con* [id number] IMPRESSION: There is fluid and inflammation in the posterior right pelvic wall as described above. No discrete cyst is seen at this time.
--- NOTE | 2023-08-06 16:04 | W.ED.SKABFB ---
HPI - Skin/Abscess/Foreign Bdy General: Chief complaint: Skin/Abscess/Foreign Body Stated complaint: boil on lower back Time Seen by Provider: 08/06/23 15:12 Source: patient Mode of arrival: ambulatory History of Present Illness: 58-year-old male presents emergency room with complaint of a boil on his lower back. Is been present for the last several days he attempted to drain it at home did get a little bit of drainage has had worsening pain and swelling. No fevers sweats or chills no previous surgery to that area. MD complaint: abscess/boil Onset (ago): day(s) Location: buttocks Severity: moderate Quality: sharp Pain Consistency: constant Relieving factors: none Exacerbating factors: none Context: none Associated symptoms: Deny arthralgias, chills, cough, fever(s), itching, myalgias, nausea, rigidity, short of breath or vomiting Treatments prior to arrival: attempted to drain pus at home Review of Systems Const: Denies: fever(s) or chills Card: Denies: chest pain, edema, dyspnea on exertion or orthopnea Resp: Denies: dyspnea, productive cough or non-productive cough GI: Denies: abdominal pain, nausea or vomiting : Denies: flank pain, dysuria, urinary frequency or urinary urgency Skin/Breast: Reports: erythema, skin tenderness and new lesions [facility] PFSH: Medical History Heartburn History of blood clots History of traumatic head injury Hypercholesteremia Hypertension Lupus Family History Sister Cancer lung, hodgkins lymphoma Other CAD (coronary artery disease) Chronic kidney disease (CKD) Hyperlipidemia Hypertension Lung disease Stroke Denies family history of Diabetes Clotting disorder Dementia Psychiatric illness Anesthesia complication Bleeding disorder Social History Smoking and tobacco status: never smoked Alcohol intake: never Substance/Drug Use: never Lives independently: Yes Current occupational status: unemployed and disabled Special lena needs: No Agree to transfusion: Yes Physical Exam Const: GENERAL APPEARANCE: cooperative and comfortable ORIENTATION/CONSCIOUSNESS: Yes awake, Yes oriented to person, Yes oriented to place and Yes oriented to time HENMT: COMMON NORMALS: normocephalic, atraumatic and hearing grossly normal bilaterally HEAD & SCALP: normocephalic and atraumatic Resp: COMMON NORMALS: normal respiratory effort, No retractions, No use of accessory muscles and clear to auscultation bilaterally AUSCULTATION: clear to auscultation bilaterally Cardio: COMMON NORMALS: regular rate, regular rhythm and No murmurs present (Cardio) RATE: regular rate RHYTHM: regular rhythm GI: COMMON NORMALS: Soft to palpation and No hepatosplenomegaly present AUSCULTATION: Yes normoactive bowel sounds PALPATION: Yes Soft to palpation, No Tenderness to palpation present (GI), No Guarding due to palpation present (GI) and Yes No hepatosplenomegaly present Extremity: COMMON NORMALS: normal to inspection, capillary refill normal, no clubbing, cyanosis or edema, no calf tenderness and no pedal edema Neuro: SENSORIUM/ORIENTATION: Yes oriented to person, Yes oriented to place and Yes oriented to time Skin: OTHER: A large palpable fluctuant cyst to the right of the midline at the superior aspect of the gluteal cleft overlying redness induration no active drainage no pointing Course Vital Signs: Vital signs: Vital Signs Temperature 98.0 F 08/06/23 15:07 Pulse Rate 91 08/06/23 17:05 Respiratory Rate 18 08/06/23 17:05 Blood Pressure 112/78 08/06/23 17:05 Pulse Oximetry 92 08/06/23 17:05 Oxygen Delivery Me thod Room Air 08/06/23 17:05 MDM - Skin/Abscess/Foreign Bdy Medicial Decision Making No organized abscess on CT. White count 14. Will start on oral antibiotics pain medications and refer patient to general surgery he will likely need surgical excision of this at some point. Return if is worsening or change symptoms. Medical Records I reviewed the patient's medical records. Lab Data I reviewed the patient's lab results. 08/06/23 16:19 08/06/23 16:[address] 08/06/23 16:03 IMPRESSION: There is fluid and inflammation in the posterior right pelvic wall as described above. No discrete cyst is seen at this time. Laboratory Results WBC 14.11 10^3/uL (3.29-11.43) H 08/06/23 16:19 RBC 4.69 10^6/uL (3.85-5.65) 08/06/23 16:19 Hgb 14.70 g/dL (11.27-16.99) 08/06/23 16:19 Hct 44.3 % (37-53) 08/06/23 16:19 MCV 94.5 fl (82-101) 08/06/23 16:19 MCH 31.3 pg (27-33) 08/06/23 16:19 MCHC 33.2 g/dL (30-55) 08/06/23 16:19 RDW 14.5 % (12.1-15.1) 08/06/23 16:19 Plt Count 262 10^3/cmm (157-399) 08/06/23 16:19 MPV 9.7 fL (7.4-10.4) 08/06/23 16:19 Neut % (Auto) 80.7 % 08/06/23 16:19 Lymph % (Auto) 9.4 % 08/06/23 16:19 Falls % (Auto) 9.4 % 08/06/23 16:19 Eos % (Auto) 0.0 % 08/06/23 16:19 Baso % (Auto) 0.1 % 08/06/23 16:19 Neut # (Auto) 11.38 10^3/uL (1.8-7.7) H 08/06/23 16:19 Lymph # (Auto) 1.3 10^3/uL (0.8-4.8) 08/06/23 16:19 Falls # (Auto) 1.3 10^3/uL (0.2-0.9) H 08/06/23 16:19 Eos # (Auto) 0.0 10^3/uL (0.0-0.8) 08/06/23 16:19 Baso # (Auto) 0.0 10^3/uL (0.0-0.1) 08/06/23 16:19 Nucleated RBC % (auto) 0 % 08/06/23 16:19 Nucleated RBCs # 0.0 /100WBC 08/06/23 16:19 Sodium 132 mmol/L (136-145) L 08/06/23 16:19 Potassium 4.8 mmol/L (3.5-5.1) 08/06/23 16:19 Chloride 97 mmol/L (98-107) L 08/06/23 16:19 Carbon Dioxide 26 mmol/L (22-29) 08/06/23 16:19 Anion Gap 13.8 (5-19) 08/06/23 16:19 BUN 21 mg/dL (6-20) H 08/06/23 16:19 Creatinine 0.9 mg/dL (0.7-1.2) 08/06/23 16:19 GFR Calculation 87.3 mL/min (90-130) L 08/06/23 16:19 Glucose 113 mg/dL (65-115) 08/06/23 16:19 Calculated Osmolality 278 mOsm/kg (285-295) L 08/06/23 16:19 Calcium 9.2 mg/dL (8.5-10.5) 08/06/23 16:19 All radiology interpretation(s) finalized by discharge Discharge Plan Discharge Patient Disposition: Home Clinical Impression: Pilonidal cyst without abscess Condition: Stable Prescriptions: New amoxicillin-pot clavulanate 875-125 mg tablet 1 tab PO BID Qty: 20 0RF hydrocodone-acetaminophen 5-325 mg tablet 1 tab PO Q6H PRN (Reason: pain) Qty: 20 0RF No Action amlodipine 5 mg tablet 5 mg PO DAILY Qty: 90 1RF lisinopril 20 mg tablet 20 mg PO DAILY Qty: 90 1RF metoprolol succinate 50 mg tablet extended release 24 hr 50 mg PO DAILY Qty: 90 1RF omeprazole 40 mg capsule,delayed release(DR/EC) 40 mg PO DAILY Qty: 90 1RF atorvastatin [Lipitor] 40 mg tablet 40 mg PO DAILY Qty: 90 1RF gabapentin 300 mg capsule 300 mg PO TID Qty: 90 0RF Eliquis 5 mg tablet 5 mg PO BID Qty: 180 2RF (DME) Cervical collar See Rx Instructions .Route .MEDSUPPLY Qty: 1 0RF Rx Instructions: As directed prednisone 20 mg tablet 20 mg PO DAILY Qty: 15 0RF Rx Instructions: Take 60 mg daily for days 1, 2, 3 Take 40 mg daily for days 4, 5 Take 20 mg daily for days 6, 7 hydrocodone-acetaminophen 7.5-325 mg tablet 1 tab PO Q6H PRN (Reason: Post Operative Pain) 5 Days Qty: 20 0RF (DME) Intraoperative Neurophysiological Monitoring See Rx Instructions .Route .MEDSUPPLY Qty: 1 0RF Rx Instructions: As directed Discharge Orders: Discharge ED (Routine); Ordered 08/06/23 Ordered By: Leonid Sawant Referrals: Matteo French MD [Primary Care Provider] - Discharge Diet: Usual diet Discharge Activity: Resume usual activity Patient Instructions: Opioid Safety, Pain Management Activity Restrictions/Additional Instructions: critical care unit manager will make arrangements for you to follow-up with surgery. At this point the cyst is not amenable to incision and drainage. It is likely at some point it will be and will need to be excised. Coding Level of Care Code ED Collar Separator for Bernarda Kingsley
[2023-08-06 16:09] VITALS: BP 110/70; PULSE 93; RESP 18; O2SAT 95
[2023-08-06 16:23] VITALS: RESP 18; O2SAT 96
[2023-08-06] MEDS: morphine 4 mg/mL SDV 1 mL IVP (16:23)
[2023-08-06] MEDS: ondansetron 2 mg/ML SDV 2 mL 4 MG IVP (16:23)
[2023-08-06 16:41] LABS: Basophils % 0.1 %; Hematocrit 44.3 % (37-53); Lymphocytes # 1.3 10^3/uL (0.8-4.8); Lymphocytes % 9.4 %; Mean Corpuscular HGB Conc 33.2 g/dL (30-55); Mean Corpuscular Hemoglobin 31.3 pg (27-33); Mean Corpuscular Volume 94.5 fl (82-101); Mean Platelet Volume 9.7 fL (7.4-10.4); Monocytes # 1.3 10^3/uL (0.2-0.9); Monocytes % 9.4 %; Neutrophils # 11.38 10^3/uL (1.8-7.7); Neutrophils % 80.7 %; Nucleated Red Blood Cells % 0 %; Platelet Count 262 10^3/cmm (157-399); Red Blood Count 4.69 10^6/uL (3.85-5.65); Red Cell Distribution Width 14.5 % (12.1-15.1); White Blood Count 14.11 10^3/uL (3.29-11.43)
[2023-08-06] MEDS: iohexol 350 mg/mL 500 mL Btl (per mL) IV (16:56)
[2023-08-06 17:05] VITALS: BP 112/78; PULSE 91; RESP 18; O2SAT 92
[2023-08-06 17:10] LABS: Anion Gap 13.8 (5-19); Blood Urea Nitrogen 21 mg/dL (6-20); Calcium 9.2 mg/dL (8.5-10.5); Carbon Dioxide 26 mmol/L (22-29); Chloride 97 mmol/L (98-107); Glomerular Filtration Rate 87.3 mL/min (90-130); Glucose 113 mg/dL (65-115); Osmolality Calculated 278 mOsm/kg (285-295); Potassium 4.8 mmol/L (3.5-5.1); Sodium 132 mmol/L (136-145)
--- NOTE | 2023-08-07 09:05 | PC.SOCIAL ---
General Surgery Referral Referral to clinic at this time. Clinic to contact patient with appt date/time.
--- NOTE | 2023-08-07 09:07 | PC.SOCIAL ---
Opthomology Called to schedule patient an appointment, he is in their waiting room at this time already.
== END 2023-08-06 18:13 | disposition home or self-care (01) ==
PROVIDERS: Emergency Provider Family Medicine; PCP Family Medicine
DX: L05.91 Pilonidal cyst without abscess (principal); Z79.01 Long term (current) use of anticoagulants; I10 Essential (primary) hypertension
CPT/HCPCS: 36415; 72193; 80048; 85025; 87040; 96374; 96375; 99285; J2270; J2405; Q9967

== ENCOUNTER → 2023-08-11 10:59 | Outpatient (BNVA) | payer MEDICAID, SELFPAY | PROVIDERS: PCP Family Medicine; Visit Provider Internal Medicine | DX: M48.02 Spinal stenosis, cervical region (principal); R20.0 Anesthesia of skin; R76.8 Other specified abnormal immunological findings in serum; M25.50 Pain in unspecified joint; L40.9 Psoriasis, unspecified | CPT/HCPCS: 72202; 73120; 73620 ==

== ENCOUNTER → 2023-09-08 08:27 | Outpatient (BNVA) | payer MEDICAID, SELFPAY | PROVIDERS: Visit Provider Physician Assistant | DX: M54.2 Cervicalgia (principal); Z98.1 Arthrodesis status | CPT/HCPCS: 72040 ==

== ENCOUNTER 2023-09-08 10:48 | Outpatient (CLI) | payer MEDICAID, SELFPAY | END 2023-09-08 10:49 | disposition home or self-care (01) | LOC: SPT 10:49 | PROVIDERS: Visit Provider Physician Assistant | DX: Z46.89 Encounter for fitting and adjustment of other specified devices (principal); Z98.1 Arthrodesis status | CPT/HCPCS: 97760; L0172 ==

== ENCOUNTER → 2023-09-16 12:18 | Outpatient (BNVA) | payer MEDICAID, SELFPAY | PROVIDERS: Visit Provider Internal Medicine | DX: R76.8 Other specified abnormal immunological findings in serum (principal); M51.36 Other intervertebral disc degeneration, lumbar region; Z86.718 Personal history of other venous thrombosis and embolism; R20.0 Anesthesia of skin; Z79.899 Other long term (current) drug therapy | CPT/HCPCS: 36415; 80053; 81001; 82550; 82607; 83516; 83520; 84550; 85025; 85651; 86140; 86160; 86162; 86200; 86235; 86255; 86376; 86431; 86704; 86803; 87086; 87340 ==

== ENCOUNTER → 2023-10-01 10:14 | Outpatient (BNVA) | payer MEDICAID, SELFPAY | PROVIDERS: Visit Provider Physician Assistant | DX: Z98.1 Arthrodesis status (principal) | CPT/HCPCS: 72040 ==

== ENCOUNTER 2023-10-20 12:23 | Outpatient (RCR) | payer OTHER, MEDICAID, SELFPAY | END 2023-11-01 23:59 | disposition home or self-care (01) | LOC: SPT 12:23 | PROVIDERS: Visit Provider Physician Assistant | DX: M54.50 Low back pain, unspecified (principal); G89.29 Other chronic pain | CPT/HCPCS: 97161 ==

== ENCOUNTER → 2023-10-29 11:12 | Outpatient (BNVA) | payer OTHER, MEDICAID, SELFPAY | PROVIDERS: PCP Family Medicine; Visit Provider Physician Assistant | DX: S12.000D Unspecified displaced fracture of first cervical vertebra, subsequent encounter for fracture with routine healing (principal); X58.XXXD Exposure to other specified factors, subsequent encounter; Z98.1 Arthrodesis status; M51.36 Other intervertebral disc degeneration, lumbar region; M47.26 Other spondylosis with radiculopathy, lumbar region | CPT/HCPCS: 72040 ==

== ENCOUNTER 2023-11-02 06:00 | Outpatient (RCR) | payer OTHER, MEDICAID, SELFPAY | END 2023-12-02 23:59 | disposition home or self-care (01) | LOC: SPT 06:00 | PROVIDERS: PCP Family Medicine; Visit Provider Physician Assistant | DX: M54.50 Low back pain, unspecified (principal); G89.29 Other chronic pain | CPT/HCPCS: 97110; G0283 ==

== ENCOUNTER 2023-11-17 09:07 | Outpatient (CLI) | payer OTHER, MEDICAID, SELFPAY ==
--- NOTE | 2023-11-17 09:00 | CT_ITS ---
WS: [id number] CT CERVICAL SPINE TECHNIQUE: Noncontrast CT of the cervical spine with coronal and sagittal reformatted images. CLINICAL INFORMATION: c-1 fracture COMPARISON: None. DLP: 413.[address] scans at [facility] use at least one of these dose optimization techniques: automated e xposure control; mA and/or kV adjustment per patient size (includes targeted exams where dose is matc hed to clinical indication); or iterative reconstruction. FINDINGS: Congenital incomplete dorsal C1 ring. No acute appearing C1 fractures. Hardware appears in good position and well seated. Interbody fusion grafts appear in good position. Postoperative changes are new since the prior MRI. Straightening normal cervical lordosis with modera te spondylitic changes. ACDF C3-C5 with interbody fusion grafts. Hardware appears in good position. C2-C3: Moderate facet arthropathy. Mild LEFT greater than RIGHT bony foraminal narrowing. C3-C4: Postoperative changes ACDF. Moderate facet arthropathy. RIGHT paracentral osteophytic ridging with mild central canal stenosis. Severe RIGHT and moderate LEFT bony foraminal narrowing. Moderate f acet arthropathy. C4-C5: Postoperative changes ACDF. Mild facet arthropathy. Mild central canal stenosis. Moderate bila teral bony foraminal narrowing. C5-C6: Advanced LEFT facet arthropathy. Moderate LEFT and mild RIGHT bony foraminal narrowing. Spinal canal is patent. C6-C7: Disc osteophytic ridging. Severe bilateral bony foraminal narrowing. Spinal canal is patent. C7-T1: Slight anterolisthesis C7 on T1. Mild bilateral bony foraminal narrowing. Visualized posterior nasopharynx: Normal. Prevertebral soft tissues: Normal. IMPRESSION: 1. Straightening of the normal cervical lordosis. ACDF C3-C5. Hardware appears in good position. 2. Congenital incomplete dorsal C1 ring. No acute fractures. 3. Mild central canal stenosis C3-C4 and C4-C5. 4. Multilevel bony foraminal narrowing described above.
== END 2023-11-17 09:08 | disposition home or self-care (01) ==
LOC: RAD 09:08
PROVIDERS: PCP Family Medicine; Visit Provider Physician Assistant
DX: S12.000A Unspecified displaced fracture of first cervical vertebra, initial encounter for closed fracture (principal); Z98.1 Arthrodesis status; M48.02 Spinal stenosis, cervical region; X58.XXXA Exposure to other specified factors, initial encounter
CPT/HCPCS: 72125

== ENCOUNTER 2023-12-01 11:55 | Outpatient (CLI) | payer OTHER, MEDICAID, SELFPAY ==
--- NOTE | 2023-12-01 11:45 | MR_ITS ---
WS: [id number] MRI LUMBAR SPINE NONCONTRAST TECHNIQUE: Sagittal T1, T2 and STIR imaging. Axial T1 and T2 imaging. CLINICAL INFORMATION: lumbar pain COMPARISON: None. FINDINGS: Mild lumbar curve. No acute compression. Slight retrolisthesis L2 on L3. Disc space narrowing worse a t L5-S1. Disc bulging worse at T12-L1, L4-L5, and L5-S1. On the birth certificate clerk imaging, Central disc osteophyte protrusion in the cervical spine with indentation of th e cervical cord and mild central canal stenosis at C6-7. Additional prominent central protrusion in t he thoracic spine at T5-T6 with indentation on the thoracic cord. T12-L1: Prominent central and LEFT paracentral disc protrusion with slight effacement of the ventral thecal sac. Mild LEFT foraminal narrowing with a small LEFT foraminal protrusion. RIGHT foramen is pa tent. L1-L2: Mild annular bulging. Mild facet arthropathy. Spinal canal and foramen are patent. L2-L3: Slight retrolisthesis. Mild disc bulging with moderate narrowing of the thecal sac. Moderate f acet arthropathy. Mild RIGHT foraminal narrowing. L3-L4: Mild annular bulging. Moderate facet arthropathy. Mild narrowing of the thecal sac. Mild RIGHT and no significant LEFT foraminal narrowing. L4-L5: Shallow central protrusion with a tiny annular fissure. Moderate to severe narrowing of the th ecal sac. Impingement traversing L5 nerve roots. Moderate facet arthropathy with ligamentum flavum hy pertrophy. Mild RIGHT greater than LEFT foraminal narrowing. L5-S1: Bilobed disc protrusion with mild narrowing of the thecal sac. Moderate facet arthropathy. Sli ght impingement traversing S1 nerve roots. Moderate RIGHT and mild LEFT foraminal narrowing. Moderate facet arthropathy. Visualized pelvic bony structures: Normal. Paravertebral soft tissues: Normal. IMPRESSION: 1. Mild lumbar curve. No acute compression. 2. Central LEFT paracentral protrusion T12-L1 with slight effacement of the ventral thecal sac. Mild LEFT foraminal narrowing at this level. 3. Slight retrolisthesis L2 on L3 with mild narrowing of the thecal sac. 4. Moderate narrowing of the thecal sac L3-L4 and moderate to severe L4-L5. Prominent epidural fat c ontributes to thecal sac narrowing. 5. Small central protrusion L4-5 with a small annular fissure. 6. Bilobed disc protrusion L5-S1 impinges the traversing S1 nerve roots bilaterally. 7. Moderate RIGHT L5-S1 foraminal narrowing. 8. Mild RIGHT L2-3 and RIGHT L3-4 foraminal narrowing. 9. Mild facet synovitis L3-L4 and L4-L5 likely degenerative or inflammatory with edema.
== END 2023-12-01 11:56 | disposition home or self-care (01) ==
LOC: RAD 11:56
PROVIDERS: PCP Family Medicine; Visit Provider Physician Assistant
DX: M48.02 Spinal stenosis, cervical region (principal); M54.50 Low back pain, unspecified; M25.78 Osteophyte, vertebrae; M47.817 Spondylosis without myelopathy or radiculopathy, lumbosacral region; M43.16 Spondylolisthesis, lumbar region
CPT/HCPCS: 72148

== ENCOUNTER → 2023-12-22 16:23 | Outpatient (BNVA) | payer OTHER, MEDICAID, SELFPAY | PROVIDERS: PCP Family Medicine; Visit Provider Orthopaedic Surgery | DX: M54.9 Dorsalgia, unspecified; Z79.899 Other long term (current) drug therapy | CPT/HCPCS: 36415; 80053; 81001; 85025; 87086 ==

== ENCOUNTER 2023-12-28 09:51 | Day surgery (SDC) | payer OTHER, MEDICAID, SELFPAY ==
[2023-12-28] VITALS (14 sets, daily range): BP systolic 91–126; BP diastolic 59–88; PULSE 74–91; RESP 6–19; TEMP 36.1–36.9; O2SAT 92–97; BMI 33.2
--- NOTE | 2023-12-28 07:53 | XR_ITS ---
WS: [id number] Exam: XR lumbar spine 1V [id number] Date/Time of Exam: 12/28/2023 7:53 AM Reason For Exam: or pic, decompression 2 anterior posterior C-arm images of the lower lumbar spine are submitted. Images were obtained for preoperative localization purposes.
[2023-12-28] MEDS: sodium chloride 0.9% 1,000 ML 30 ML IV (10:17)
[2023-12-28] MEDS: HYDROmorphone 1 mg/mL INJ 1 mL 0.5 MG IVP (11:45)
--- NOTE | 2023-12-28 11:45 | ANES.PREANE2 ---
Pre-Anesthetic Assessment Height/Weight: Height 1.8 m Weight 107.955 kg Temp Pulse Resp BP Pulse Ox O2 Del Method 98.4 F 91 17 126/88 96 Room Air 12/28/23 10:02 12/28/23 10:02 12/28/23 10:02 12/28/23 10:02 12/28/23 10:02 12/28/23 10:07 Preop Diagnosis: Lumbar stenosis with neurogenic claudication Operation Date: 12/28/23 11:55 Proposed Procedures p Lumbar Spine Decompression Lumbar Decompression/ right side L4-L5/right side L5-S1 M with possible Discectomy at S1(Right) - Lul Be, DO Was Beta Holly taken within 24 hours: Yes Was Clonidine taken within 24 hours: N/A Last intake: Intake Last Liquid Date 12/28/23 Last Liquid Time 09:00 Last Solid Date 12/27/23 Last Solid Time 22:00 Social No tobacco Exam alert and oriented x 3 Airway Submandibular: within normal limits Mallampati: Class II Comments: Comments: Missing some teeth History/ROS No significant history except as noted and No significant complaints CV/HEM Arrythmia and Hypertension Afib on anticoagulation GI Gastroesophageal Reflux Disease Musc/skel Lower Back Pain Anesthetic Plan ASA status: 3 Anesthesia: General Risk of > 500 ml blood loss (7ml/kg in children): No Medications/Allergies Home Medications Medication Instructions Recorded Confirmed Last Taken Type [place] j collar #1 ea 09/08/23 12/22/23 Unknown Rx amlodipine 5 mg tablet 5 mg PO DAILY #90 tabs 09/11/23 12/28/23 12/28/23 09:00 Rx apixaban 5 mg tablet (Eliquis) 5 mg PO BID #180 tabs 09/11/23 12/25/23 12/22/23 Rx atorvastatin 40 mg tablet (Lipitor) 40 mg PO DAILY #90 tabs 09/11/23 12/28/23 12/27/23 Rx lisinopril 20 mg tablet 20 mg PO DAILY #90 tabs 09/11/23 12/28/23 12/27/23 Rx metoprolol succinate 50 mg 50 mg PO DAILY #90 tabs 09/11/23 12/28/23 12/28/23 09:00 Rx tablet,extended release 24 hr omeprazole 40 mg capsule,delayed 40 mg PO DAILY #90 caps 09/11/23 12/28/23 12/28/23 09:00 Rx release miscellaneous medical supply #1 ea 09/16/23 12/22/23 Unknown Rx [place] J collar #1 ea 10/01/23 12/22/23 Unknown Rx soft cervical collar #1 ea 10/29/23 12/22/23 Unknown Rx hydrocodone 10 mg-acetaminophen 1 tab PO Q6H PRN pain 7 days #40 12/22/23 12/28/23 12/28/23 09:00 Rx 325 mg tablet tabs Allergies Allergy/AdvReac Type Severity Reaction Status Date / Time No Known Allergies Allergy Verified 12/28/23 10:21 Current Medications Generic Name Dose Route Start Last Admin Trade Name Freq PRN Reason Stop Dose Admin Sodium Chloride 1,000 mls @ 30 mls/hr 12/28/23 10:00 12/28/23 10:17 Sodium Chloride 0.9% IV 12/29/23 09:59 30 mls/hr .Q24H SONNY Administration PFSH Anesthesia Medical History AMBROSE positive Hypertension Hypercholesteremia Lupus History of blood clots Heartburn History of traumatic head injury Family History Sister Cancer lung, hodgkins lymphoma Other CAD (coronary artery disease) Chronic kidney disease (CKD) Hyperlipidemia Hypertension Lung disease Stroke Denies family history of Diabetes Clotting disorder Dementia Psychiatric illness Anesthesia complication Bleeding disorder Social History Smoking and tobacco/nicotine status: never used tobacco/nicotine Alcohol intake: never Substance/Drug Use: never Lives independently: Yes Current occupational status: unemployed and disabled Special lena needs: No Agree to transfusion: Yes Data Anesthesia Cardiac Studies: No Data to Display
--- NOTE | 2023-12-28 13:14 | W.PM.OPSUD ---
Surgery/Procedure H&P Update DATE OF PROCEDURE: December 28, 2023 DATE H&P PERFORMED: 12/24/23 H&P UPDATE INFORMATION: I have reviewed H&P completed within last 30 days, I have examined patient prior to procedure and No changes to prior documentation PREOP DIAGNOSIS: Lumbar stenosis with neurogenic claudication PLANNED PROCEDURE: Operation Date: 12/28/23 11:55 Proposed Procedures p Lumbar Spine Decompression Lumbar Decompression/ right side L4-L5/right side L5-S1 M with possible Discectomy at S1(Right) - Lul Be DO
[2023-12-28] MEDS: ceFAZolin 2,000 MG in sodium chloride 0.9% (plus) 50 ML 100 MG IV (13:37)
[2023-12-28] MEDS: lidocaine-epi 1% PF 1:200,000 30 mL SDV INJECTION (14:18)
--- NOTE | 2023-12-28 16:09 | PM.OP ---
Operative Report Date of procedure: December 28, 2023 Pre-op diagnosis: Lumbar stenosis with neurogenic claudication Post-op diagnosis: same Procedure done: 1. L4-5 laminectomy with partial facetectomy 2. L5-S1 laminectomy with partial facetectomy Surgeon: Lul Be DO Estimated blood loss (mL): 25 Procedure: 1. L4-5 laminectomy with partial facetectomy 2. L5-S1 laminectomy with partial facetectomy Patient is brought to the operative suite. After undergoing anesthesia they are placed in the prone position. All areas of impingement are well padded. Patient is then prepped and draped in the normal sterile fashion. A skin incision is made over the L4/5 level. This is confirmed under c-arm guidance. A series of dilators are passed and the tubular retractor is docked on the L4 lamina. A bovie is used to clear the soft tissue off the lamina and the L 4/5 facet joint. A high speed bereket is then used to perform the laminectomy and take down the medial aspect of the L 4/5 facet joint. A kerrison rongeure was then used to take down the remaining lamina and smooth the edge of the laminectomy up to the point where the ligamentum flavum attaches. Attention was then brought to the medial aspect of the facet joint. The remaining medial aspect of the superior and inferior aspect of the facet joint were taken down with the kerrison from the pedicle of L4 to L 5. The facet joint had significant hypertrophy. Attention was then brought to the Ligamentum Flavum. The ligament was taken down from the lamina of L4 to L5 and out medially to the remaining facet joint. The ligament was thick. The dura was then exposed. The dura was in good repair. The L4 nerve was then traced with a curette out the L4/5 foramen and found to be adequately decompressed. The L5 nerve was traced with a curette around the L5 pedicle. The lateral recess was opened with a kerrison helping to further decompress the L5 nerve. Wound is then irrigated copiously with saline and surgiflo is used to stop any bleeding. The tubular retractor is removed and the skin incision is made over the L5/S1 level. This is confirmed under c-arm guidance. A series of dilators are passed and the tubular retractor is docked on the L5 lamina. A bovie is used to clear the soft tissue off the lamina and the L 5/S1 facet joint. A high speed bereket is then used to perform the laminectomy and take down the medial aspect of the L 5/S1 facet joint. A kerrison rongeure was then used to take down the remaining lamina and smooth the edge of the laminectomy up to the point where the ligamentum flavum attaches. Attention was then brought to the medial aspect of the facet joint. The remaining medial aspect of the superior and inferior aspect of the facet joint were taken down with the kerrison from the pedicle of L5 to S1. The facet joint had significant hypertrophy. Attention was then brought to the Ligamentum Flavum. The ligament was taken down from the lamina of L5 to S1 and out medially to the remaining facet joint. The ligament was thick. The dura was then exposed. The dura was in good repair. The L5 nerve was then traced with a curette out the L5/S1 foramen and found to be adequately decompressed. The L5 nerve was traced with a curette around the S1 pedicle. The lateral recess was opened with a kerrison helping to further decompress the S1 nerve. Wound is then irrigated copiously with saline and surgiflo is used to stop any bleeding. The tubular retractor is removed and the wound is closed with vicryl and monocryl suture. Glue is then used to protect the wound. A sterile dressing is then placed. Patient was then placed in the supine position and transferred to the PACU in stable condition.
[2023-12-28] MEDS: fentaNYL 50 mcg/mL INJ 2mL IVP (16:11)
[2023-12-28] MEDS: HYDROcodone-acetaminophen 10-325 mg Tablet 1 TAB PO (16:52)
--- NOTE | 2023-12-28 18:46 | ANE.PACU2 ---
Inpatient post-anesthesia follow up: Airway intact: Yes Vital signs: Temperature 97.3 F Pulse Rate 76 Respiratory Rate 15 Blood Pressure 126/86 Pulse Oximetry 92 Oxygen Delivery Me thod Room Air Oxygen Flow Rate 6 Fraction of Inspir ed Oxygen Hydration adequate: Yes Nausea and vomiting: No Pain level: 4 Mental status: Baseline
== END 2023-12-28 17:28 | disposition home or self-care (01) ==
PROVIDERS: PCP Family Medicine; Visit Provider Orthopaedic Surgery
PROC: (CPT 63005; principal; 2023-12-28 11:45)
DX: M48.062 Spinal stenosis, lumbar region with neurogenic claudication (principal); I10 Essential (primary) hypertension; I48.91 Unspecified atrial fibrillation; Z79.01 Long term (current) use of anticoagulants; Z87.820 Personal history of traumatic brain injury
CPT/HCPCS: 63047; 63048; 72020; 76000; J0690; J1100; J1170; J2371; J2405; J2704; J3010; J3490; J7030

== ENCOUNTER 2023-12-31 07:36 | Emergency (ER) | payer OTHER, MEDICAID, SELFPAY ==
[2023-12-31] VITALS (10 sets, daily range): BP systolic 115–153; BP diastolic 74–103; PULSE 84–91; RESP 15–22; TEMP 36.4; O2SAT 85–97; BMI 32.8
--- NOTE | 2023-12-31 08:07 | ED_ITS ---
HPI - Back Pain/Injury 2 General: Chief Complaint: Back Pain/Injury Stated Complaint: back pain post surgery Time Seen by Provider: 12/31/23 07:39 Source: patient Mode of arrival: EMS History of Present Illness: 58-year-old male presents emergency room with complaint of back pain. He is postop day #3 from back surgery with Dr. Be. Reviewing the op note he had an L4-5 L5-S1 laminectomy me and partial facetectomy. Reviewing the op note did not locate he had any particular complications during his surgery patient states he has worsening pain in his back radiating down his right leg since he had the surgery. He has been able to urinate he has been taking hydrocodone regularly without effective control of pain. He was previously on apixaban but has stopped that. MD elicited complaint: back pain Onset (ago): day(s) Timing: constant Quality: sharp Location: lumbar spine Radiation: right upper leg Exacerbating factors: movement and sitting upright Relieving factors: supine Context: other (Chronic low back pain with recent surgery) Associated symptoms: Deny abdominal pain, chills, dysuria, fever(s) or urinary urgency Review of Systems 2 Const: Denies: fever(s) or chills Card: Denies: chest pain Resp: Denies: dyspnea GI: Denies: abdominal pain : Denies: dysuria, urinary frequency or urinary urgency Musc: Denies: neck pain or back pain Skin/Breast: Denies: rash PFSH ED 2 PFSH: Medical History AMBROSE positive Hypertension Hypercholesteremia Lupus History of blood clots Heartburn History of traumatic head injury Family History Sister Cancer lung, hodgkins lymphoma Other CAD (coronary artery disease) Chronic kidney disease (CKD) Hyperlipidemia Hypertension Lung disease Stroke Denies family history of Diabetes Clotting disorder Dementia Psychiatric illness Anesthesia complication Bleeding disorder Social History Smoking and tobacco/nicotine status: never used tobacco/nicotine Alcohol intake: never Substance/Drug Use: never Lives independently: Yes Current occupational status: unemployed and disabled Special lena needs: No Agree to transfusion: Yes Physical Exam 2 Const: COMMON NORMALS: no acute distress GENERAL APPEARANCE: cooperative and comfortable ORIENTATION/CONSCIOUSNESS: Yes awake, Yes oriented to person, Yes oriented to place and Yes oriented to time HENMT: COMMON NORMALS: normocephalic, atraumatic and hearing grossly normal bilaterally HEAD & SCALP: normocephalic and atraumatic Resp: COMMON NORMALS: normal respiratory effort, No retractions, No use of accessory muscles and clear to auscultation bilaterally AUSCULTATION: clear to auscultation bilaterally Cardio: COMMON NORMALS: regular rate, regular rhythm and No murmurs present (Cardio) RATE: regular rate RHYTHM: regular rhythm GI: COMMON NORMALS: Soft to palpation and No hepatosplenomegaly present A USCULTATION: Yes normoactive bowel sounds PALPATION: Yes Soft to palpation, No Tenderness to palpation present (GI), No Guarding due to palpation present (GI) and Yes No hepatosplenomegaly present Extremity: COMMON NORMALS: normal to inspection, capillary refill normal, no clubbing, cyanosis or edema, no calf tenderness and no pedal edema Neuro: SENSORIUM/ORIENTATION: Yes oriented to person, Yes oriented to place and Yes oriented to time Skin: COMMON NORMALS: no rashes or lesions noted GENERAL SKIN EXAM: no rashes or lesions noted Course 2 Vital Signs: Vital signs: Vital Signs Temperature 97.5 F L 12/31/23 07:38 Pulse Rate 87 12/31/23 10:00 Respiratory Rate 15 12/31/23 10:00 Blood Pressure 115/74 12/31/23 10:00 Pulse Oximetry 96 12/31/23 10:00 Oxygen Delivery Me thod Nasal Cannula 12/31/23 08:24 Oxygen Flow Rate 1 12/31/23 08:24 MDM - Back Pain/Injury Medical Decision Making Postlaminectomy syndrome improved with medications given discharged home with hydrocodone 08/04/2025 also steroid taper and tizanidine follow-up with Dr. Be. Differential Diagnosis Likely lumbar radiculopathy, sciatica and strain of lumbar region Medical Records I reviewed the patient's medical records. Labs I reviewed the patient's lab results. 12/31/23 08:21 12/31/23 08:21 Laboratory Results WBC 12.20 10^3/uL (3.29-11.43) H 12/31/23 08:21 RBC 4.58 10^6/uL (3.85-5.65) 12/31/23 08:21 Hgb 14.20 g/dL (11.27-16.99) 12/31/23 08:21 Hct 44.8 % (37-53) 12/31/23 08:21 MCV 97.8 fl (82-101) 12/31/23 08:21 MCH 31.0 pg (27-33) 12/31/23 08:21 MCHC 31.7 g/dL (30-55) 12/31/23 08:21 RDW 14.1 % (12.1-15.1) 12/31/23 08:21 Plt Count 220 10^3/cmm (157-399) 12/31/23 08:21 MPV 9.6 fL (7.4-10.4) 12/31/23 08:21 Neut % (Auto) 70.0 % 12/31/23 08:21 Lymph % (Auto) 15.4 % 12/31/23 08:21 [place] % (Auto) 13.6 % 12/31/23 08:21 Eos % (Auto) 0.4 % 12/31/23 08:21 Baso % (Auto) 0.3 % 12/31/23 08:21 Neut # (Auto) 8.53 10^3/uL (1.8-7.7) H 12/31/23 08:21 Lymph # (Auto) 1.9 10^3/uL (0.8-4.8) 12/31/23 08:21 [place] # (Auto) 1.7 10^3/uL (0.2-0.9) H 12/31/23 08:21 Eos # (Auto) 0.1 10^3/uL (0.0-0.8) 12/31/23 08:21 Baso # (Auto) 0.0 10^3/uL (0.0-0.1) 12/31/23 08:21 Nucleated RBC % (auto) 0 % 12/31/23 08:21 Nucleated RBCs # 0.0 /100WBC 12/31/23 08:21 Sodium 133 mmol/L (136-145) L 12/31/23 08:21 Potassium 4.1 mmol/L (3.5-5.1) 12/31/23 08:21 Chloride 99 mmol/L (98-107) 12/31/23 08:21 Carbon Dioxide 24 mmol/L (22-29) 12/31/23 08:21 Anion Gap 14.1 (5-19) 12/31/23 08:21 BUN 9 mg/dL (6-20) 12/31/23 08:21 Creatinine 0.6 mg/dL (0.7-1.2) L 12/31/23 08:21 GFR Calculation 139.4 mL/min (90-130) H 12/31/23 08:21 Glucose 146 mg/dL (65-115) H 12/31/23 08:21 Calculated Osmolality 277 mOsm/kg (285-295) L 12/31/23 08:21 Calcium 8.6 mg/dL (8.5-10.5) 12/31/23 08:21 Total Bilirubin 0.8 mg/dL (0.15-1.2) 12/31/23 08:21 AST 20 U/L (0-40) 12/31/23 08:21 ALT 18 U/L (0-41) 12/31/23 08:21 Alkaline Phosphatase 67 U/L (40-130) 12/31/23 08:21 Total Protein 7.2 g/dL (6.6-8.7) 12/31/23 08:21 Albumin 3.3 g/dL (3.5-5.2) L 12/31/23 08:21 Globulin 3.9 g/dL (1.3-4.6) 12/31/23 08:21 All radiology interpretation(s) finalized by discharge Discharge Plan Discharge Patient Disposition: Home Clinical Impression: Post laminectomy syndrome Condition: Stable Prescriptions: New tizanidine 4 mg tablet 4 mg PO Q6H PRN (Reason: muscle spasticity) Qty: 20 0RF Rx Instructions: do not exceed 3 doses per 24 hrs prednisone 20 mg tablet 20 mg PO TID Qty: 15 0RF Rx Instructions: 1 p.o. 3 times daily x3 days, 1 p.o. twice daily x2 days, 1 p.o. daily x2 days hydrocodone-acetaminophen 10-325 mg tablet 1 tab PO Q6H PRN (Reason: pain) Qty: 20 0RF No Action (DME) [place] j collar See Rx Instructions .Route .MEDSUPPLY Qty: 1 0RF Rx Instructions: As directed (DME) miscellaneous medical supply Misc See Rx Instructions .Route Qty: 1 0RF Rx Instructions: As directed (DME) [place] J collar See Rx Instructions .Route .MEDSUPPLY Qty: 1 0RF Rx Instructions: As directed (DME) soft cervical collar See Rx Instructions .Route .MEDSUPPLY Qty: 1 0RF Rx Instructions: As directed amlodipine 5 mg tablet 5 mg PO DAILY Qty: 90 1RF Eliquis 5 mg tablet 5 mg PO BID Qty: 180 2RF Hold Instructions: Resume on 12/30/23. atorvastatin [Lipitor] 40 mg tablet 40 mg PO DAILY Qty: 90 1RF lisinopril 20 mg tablet 20 mg PO DAILY Qty: 90 1RF metoprolol succinate 50 mg tablet extended release 24 hr 50 mg PO DAILY Qty: 90 1RF omeprazole 40 mg capsule,delayed release(DR/EC) 40 mg PO DAILY Qty: 90 1RF hydrocodone-acetaminophen 10-325 mg tablet 1 tab PO Q4H PRN (Reason: pain) 7 Days Qty: 40 0RF hydrocodone-acetaminophen 5-325 mg tablet 1 - 2 tab PO .Q4-6H Qty: 40 0RF Discharge Orders: Discharge ED (Routine); Ordered 12/31/23 Ordered By: Leonid Sawant Referrals: Matteo French MD [Primary Care Provider] - Discharge Diet: Usual diet Discharge Activity: Increase activity as tolerated Patient Instructions: Opioid Safety, Pain Management Activity Restrictions/Additional Instructions: Thank you for choosing [facility] for your healthcare needs today. Please realize this is an emergency room and that we are providing you with a medical screening exam and this may not be complete and all inclusive of all the testing and or work up that you may need to determine your ailment or severity of your illness. It is very important that you follow up as instructed or that you return to the Emergency Department should you have concerns or if your condition changes or worsens in any way. Follow-up with Dr. Be Coding Level of Care Code ED Media Planner / Buyer for Bernarda Kingsley
[2023-12-31] MEDS: sodium chloride 0.9% 1,000 ML 999 ML IV (08:08)
[2023-12-31] MEDS: ondansetron 2 mg/ML SDV 2 mL 4 MG IVP (08:08)
[2023-12-31] MEDS: morphine 4 mg/mL SDV 1 mL IVP (08:11)
[2023-12-31] MEDS: ketorolac 30 mg/mL INJ IVP (08:12)
[2023-12-31] MEDS: dexamethasone 10 mg/mL INJ IM (08:12)
[2023-12-31] MEDS: orphenadrine 30 mg/mL Inj 2 mL 60 MG IM (08:15)
[2023-12-31 08:27] LABS: Basophils % 0.3 %; Eosinophils # 0.1 10^3/uL (0.0-0.8); Eosinophils % 0.4 %; Hematocrit 44.8 % (37-53); Lymphocytes # 1.9 10^3/uL (0.8-4.8); Lymphocytes % 15.4 %; Mean Corpuscular HGB Conc 31.7 g/dL (30-55); Mean Corpuscular Volume 97.8 fl (82-101); Mean Platelet Volume 9.6 fL (7.4-10.4); Monocytes # 1.7 10^3/uL (0.2-0.9); Monocytes % 13.6 %; Neutrophils # 8.53 10^3/uL (1.8-7.7); Nucleated Red Blood Cells % 0 %; Platelet Count 220 10^3/cmm (157-399); Red Blood Count 4.58 10^6/uL (3.85-5.65); Red Cell Distribution Width 14.1 % (12.1-15.1)
[2023-12-31 08:48] LABS: Alanine Aminotransferase 18 U/L (0-41); Albumin Level 3.3 g/dL (3.5-5.2); Alkaline Phosphatase 67 U/L (40-130); Anion Gap 14.1 (5-19); Aspartate Amino Transferase 20 U/L (0-40); Blood Urea Nitrogen 9 mg/dL (6-20); Calcium 8.6 mg/dL (8.5-10.5); Carbon Dioxide 24 mmol/L (22-29); Chloride 99 mmol/L (98-107); Creatinine Clr Calc Pharmacy 170.7564; Globulin 3.9 g/dL (1.3-4.6); Glomerular Filtration Rate 139.4 mL/min (90-130); Glucose 146 mg/dL (65-115); Osmolality Calculated 277 mOsm/kg (285-295); Potassium 4.1 mmol/L (3.5-5.1); Sodium 133 mmol/L (136-145); Total Bilirubin 0.8 mg/dL (0.15-1.2); Total Protein 7.2 g/dL (6.6-8.7)
== END 2023-12-31 11:05 | disposition home or self-care (01) ==
PROVIDERS: Emergency Provider Family Medicine; PCP Family Medicine
DX: M96.1 Postlaminectomy syndrome, not elsewhere classified (principal); Z79.01 Long term (current) use of anticoagulants; I10 Essential (primary) hypertension
CPT/HCPCS: 80053; 85025; 96372; 96374; 96375; 99284; J1100; J1885; J2270; J2360; J2405; J7030

== ENCOUNTER 2024-02-05 14:26 | Outpatient (CLI) | payer OTHER, MEDICAID, SELFPAY ==
--- NOTE | 2024-02-05 14:30 | MR_ITS ---
WS: [id number] MRI LUMBAR SPINE WITH AND WITHOUT CONTRAST HISTORY: Chronic back pain down RIGHT leg. Recent surgery. COMPARISON: 12/01/2023 TECHNIQUE: Sagittal and axial multisequence imaging is submitted. Postcontrast imaging MultiHance 20 mL IV. On the localizer sequence there is a central disc osteophyte protrusion in the cervical canal at C6-7 contacting the ventral cord. Additional central disc protrusion at T5-6 with indention upon the thor acic cord. 2 mm retrolisthesis of L2 and L4. No acute lumbar spine fractures. There is a small amount of marrow edema in the L4 and L5 posterior elements. Disc spaces are mildly desiccated. Conus terminates normally at L1-2 disc level. T12-L1: Mild annular disc bulging with a LEFT paracentral disc protrusion causing slight effacement o f the ventral thecal sac. There is mild LEFT foraminal stenosis. Similar findings as compared to the prior study. L1-L2: Mild annular disc bulging with facet arthritis. Very mild central and foraminal stenosis. No c hange. L2-L3: Mild diffuse disc bulging encroaching upon the thecal sac. There is a new RIGHT paracentral di sc protrusion which does appear to encroach upon the RIGHT lateral thecal sac and subarticular recess greater than on the prior study. Moderate facet arthritis. L3-L4: Mild annular disc bulging and facet arthropathy. Mild central and RIGHT foraminal stenosis. Si milar to the prior study. L4-L5: Mild diffuse annular disc bulging with osteophytic ridging. Facet joint arthritis and disc dis ease contributing to moderate to severe central and bilateral foraminal stenosis. Very similar to the prior study. There are postsurgical defects and probably a RIGHT hemilaminectomy defect. L5-S1: Osteophytic ridging with central disc protrusions. Facet joint arthritis. RIGHT hemilaminectom y defect. Severe central, bilateral subarticular recess and foraminal stenosis. Postsurgical changes are noted in the paravertebral soft tissues. There is no focal fluid collection or abscess identified. The soft tissue enhancement in the mild dural enhancement can be seen postsurg ically. IMPRESSION: 1. No abscess or epidural fluid collection identified at L4-5 or L5-S1. 2. Interval laminectomy defects on the RIGHT at L4-5 and L5-S1 since 12/01/2023. 3. L5-S1: Severe central, bilateral subarticular recess and foraminal stenosis. 4. L4-5: Moderate to severe central with bilateral foraminal stenosis. 5. L3-4: Mild central and RIGHT foraminal stenosis. 6. L2-3: New RIGHT paracentral disc protrusion with encroachment upon the RIGHT lateral thecal sac a nd subarticular recess. 7. T12-L1: RIGHT paracentral disc protrusion effacing the ventral thecal sac. Mild LEFT foraminal st enosis.
[2024-02-05] MEDS: gadobenate dimeglumine 20 mL vial IV (15:12)
== END 2024-02-05 14:27 | disposition home or self-care (01) ==
LOC: RAD 14:26
PROVIDERS: PCP Family Medicine; Visit Provider Orthopaedic Surgery
DX: M54.41 Lumbago with sciatica, right side (principal); G89.29 Other chronic pain; M48.07 Spinal stenosis, lumbosacral region; M51.26 Other intervertebral disc displacement, lumbar region; M51.25 Other intervertebral disc displacement, thoracolumbar region
CPT/HCPCS: 72158; A9577

== ENCOUNTER → 2024-02-25 09:30 | Outpatient (BNVA) | payer OTHER, MEDICAID, SELFPAY | PROVIDERS: PCP Family Medicine; Visit Provider Orthopaedic Surgery | DX: M54.9 Dorsalgia, unspecified (principal); Z98.890 Other specified postprocedural states; Z79.899 Other long term (current) drug therapy | CPT/HCPCS: 36415; 80053; 81001; 85025 ==

== ENCOUNTER 2024-04-20 13:15 | Observation (INO) | payer OTHER, MEDICAID, SELFPAY ==
[2024-04-20] VITALS (20 sets, daily range): BP systolic 106–129; BP diastolic 73–93; PULSE 69–126; RESP 12–20; TEMP 36.3–37.1; O2SAT 84–100; BMI 32.8; BMI 31.6
--- NOTE | 2024-04-20 09:37 | W.PM.OPSFHP ---
Same Day Surgery H&P Indication for Procedure/HPI DATE OF PROCEDURE: April 20, 2024 CHIEF COMPLAINT/INDICATIONFOR SURGICAL PROCEDURE: back and right leg pain PREOP DIAGNOSIS: Lumbar stenosis with neurogenic claudication PLANNED PROCEDURE: Operation Date: 04/20/24 10:35 Proposed Procedures p Lumbar Spine Decompression Lumbar Decompression(Not Applicable) - Lul Be DO Medications/Allergies* Home Medications Medication Instructions Recorded Confirmed Type lisinopril 40 mg tablet 20 mg PO DAILY 04/19/24 04/19/24 History Allergies/Adverse Reactions Allergy/AdvReac Type Severity Reaction Status Date / Time No Known Allergies Allergy Verified 04/19/24 15:18 Pertinent History/Comorbid Conditions* Medical History (Updated 04/04/24 @ 15:29 by Matteo French MD) AMBROSE positive Hypertension Hypercholesteremia Lupus History of blood clots Heartburn History of traumatic head injury Surgical History (Updated 04/04/24 @ 15:29 by Matteo French MD) Hx of cervical spine surgery Hx of tracheostomy Hx of colonoscopy 2019 History of esophagogastroduodenoscopy (EGD) Family History (Updated 05/13/23 @ 11:05 by Magda Kirby LPN) CAD (coronary artery disease) Hyperlipidemia Chronic kidney disease (CKD) Lung disease Cancer Sister lung, hodgkins lymphoma Hypertension Stroke Denies family history of Diabetes Clotting disorder Dementia Psychiatric illness Anesthesia complication Bleeding disorder Social History Smoking and tobacco/nicotine status: never used tobacco/nicotine Alcohol intake: never Substance/Drug Use: never Lives independently: Yes Current occupational status: unemployed and disabled Special lena needs: No Agree to transfusion: Yes Pertinent Exam Findings alert, oriented x 3 and procedure specific exam findings Recommendations Surgery/Procedure today Coding Level of Care Code Acute Code for Chg Fwd
--- NOTE | 2024-04-20 09:41 | P.ANESASSM_ITS ---
Pre-Anesthetic Assessment Height/Weight: Height 1.8 m Weight 106.594 kg Temp Pulse Resp BP Pulse Ox O2 Del Method 98.5 F 93 17 116/84 97 Room Air 04/20/24 09:17 04/20/24 09:17 04/20/24 09:17 04/20/24 09:17 04/20/24 09:17 04/20/24 09:17 Preop Diagnosis: Lumbar stenosis with neurogenic claudication Operation Date: 04/20/24 10:35 Proposed Procedures p Lumbar Spine Decompression Lumbar Decompression(Not Applicable) - Lul Be, DO Familial anesthetic complications: None Was Beta Holly taken within 24 hours: Yes Was Clonidine taken within 24 hours: N/A Last intake: Intake Last Liquid Date 04/19/24 Last Liquid Time 23:30 Last Solid Date 04/19/24 Last Solid Time 23:30 Social No alcohol and No tobacco Exam alert, oriented x 3, clear to auscultation bilaterally and regular rate & rhythm Airway Mallampati: Class II Dentition: chipped and other (multiple missing) CV/HEM Atrial Fibrillation (once after covid in 2020) and Hypertension AAA clot ? related to lupus; holding eliquis last 10 days GI Gastroesophageal Reflux Disease Metabolic Hyperlipidemia [facility] Lupus Anesthetic Plan ASA status: 3 Anesthesia: General Risk of > 500 ml blood loss (7ml/kg in children): No Medications/Allergies Home Medications Medication Instructions Recorded Confirmed Last Taken Type [place] j collar #1 ea 09/08/23 04/04/24 Unknown Rx amlodipine 5 mg tablet 5 mg PO DAILY #90 tabs 09/11/23 04/19/24 04/20/24 Rx apixaban 5 mg tablet (Eliquis) 5 mg PO BID #180 tabs 09/11/23 04/19/24 03/20/24 Rx omeprazole 40 mg capsule,delayed 40 mg PO DAILY #90 caps 09/11/23 04/19/24 04/20/24 Rx release miscellaneous medical supply #1 ea 09/16/23 04/04/24 Unknown Rx [place] J collar #1 ea 10/01/23 04/04/24 Unknown Rx soft cervical collar #1 ea 10/29/23 04/04/24 Unknown Rx atorvastatin 40 mg tablet (Lipitor) 40 mg PO DAILY #30 tabs 03/21/24 04/19/24 04/20/24 Rx metoprolol succinate 50 mg 50 mg PO DAILY #30 tabs 03/21/24 04/19/24 04/20/24 Rx tablet,extended release 24 hr cyclobenzaprine 10 mg tablet 10 mg PO TID PRN muscle spasm #30 04/04/24 04/20/24 04/20/24 Rx tabs duloxetine 30 mg capsule,delayed 30 mg PO DAILY #30 caps 04/04/24 04/19/24 04/19/24 Rx release (Cymbalta) oxycodone 10 mg tablet 10 mg PO Q4H PRN pain 7 days #40 04/18/24 04/19/24 04/20/24 Rx tabs lisinopril 40 mg tablet 20 mg PO DAILY 04/19/24 04/19/24 04/17/24 History Allergies Allergy/AdvReac Type Severity Reaction Status Date / Time No Known Allergies Allergy Verified 04/19/24 15:18 PFSH Anesthesia Medical History (Updated 04/04/24 @ 15:29 by Matteo French MD) AMBROSE positive Hypertension Hypercholesteremia Lupus History of blood clots Heartburn History of traumatic head injury Surgical History (Updated 04/04/24 @ 15:29 by Matteo French MD) Hx of cervical spine surgery Hx of tracheostomy Hx of colonoscopy 2019 History of esophagogastroduodenoscopy (EGD) Family History Sister Cancer lung, hodgkins lymphoma Other CAD (coronary artery disease) Chronic kidney disease (CKD) Hyperlipidemia Hypertension Lung disease Stroke Denies family history of Diabetes Clotting disorder Dementia Psychiatric illness Anesthesia complication Bleeding disorder Social History Smoking and tobacco/nicotine status: never used tobacco/nicotine Alcohol intake: never Substance/Drug Use: never Lives independently: Yes Current occupational status: unemployed and disabled Special lena needs: No Agree to transfusion: Yes Data Anesthesia Cardiac Studies: No Data to Display
[2024-04-20] MEDS: fentaNYL 50 mcg/mL INJ 2mL IVP ×2 (09:43→12:44)
[2024-04-20] MEDS: sodium chloride 0.9% 1,000 ML 30 ML IV (09:43)
[2024-04-20] MEDS: ceFAZolin 2,000 MG in sodium chloride 0.9% (plus) 50 ML 100 MG IV ×2 (10:25→19:53)
[2024-04-20] MEDS: lidocaine-epi 1% 20 mL INJ INJECTION (10:55)
[2024-04-20] MEDS: vancomycin 1,000 MG SDV 1000 MG XX (11:44)
--- NOTE | 2024-04-20 12:28 | P.OP_ITS ---
Operative Report Date of procedure: April 20, 2024 Pre-op diagnosis: Lumbar stenosis with neurogenic claudication Post-op diagnosis: same Procedure done: 1. L4-5 laminectomy with partial facetectomies 2. L5-S1 laminectomy with partial facetectomies 3. Revision spine surgery Surgeon: Lul Be DO Estimated blood loss (mL): 150 Procedure: 1. L4-5 laminectomy with partial facetectomies 2. L5-S1 laminectomy with partial facetectomies 3. Revision spine surgery The patient is brought to the operative suite after undergoing anesthesia was placed in the prone position. All areas impingement well-padded. Patient's prepped draped normal sterile fashion. Skin incision was made from L4 down to S1. Thoracolumbar fascia was split. Subperiosteal dissection was made out to the facets bilaterally. Previous laminectomy sites were identified. This is at the L4 lamina and L4-5 facet in the L5-S1 facet and L5 lamina. Attention was first brought to the L5-S1 level. A rongeur was used to take down the spinous process of L5. High-speed bur was used to take down the lamina anita aterally. On the right side patient already had a partial laminectomy. The medial aspect of facet was taken down further. Curved curette was used to free up the scar tissue. Kerrison rongeur was then used to perform the laminectomy and remove more of the medial aspect of the L5-S1 facet joint. This was done bilaterally. A Pauline was used to fill the S1 nerve around the S1 pedicle as well as the L5 nerve go through the L5-S1 foramen. This was opened bilaterally. Next attention was brought to the L4-5 level. Again the [place]ison rongeur was used to take down the spinous process. High-speed bur was used to take down the lamina and the partial laminectomy again was performed in the right side prior to the surgery. Remaining lamina was taken down medial aspect of facet was taken down with a high-speed bur bilaterally. Kerrison rongeur was used to perform the laminectomy as well as takedown more the medial aspect of facet joint. The Union was used to trace the L4 nerve out the L4-5 foramen. And the L5 nerve get around the L5 pedicle. This was done bilaterally. Wounds were irrigated with vancomycin powder was placed deep drain was placed and wound was closed in layered fashion with 0 Vicryl 2-0 Vicryl and Monocryl suture. Sterile dressings applied patient transferred to the PACU in stable condition.
--- NOTE | 2024-04-20 13:44 | XR_ITS ---
WS: [id number] Exam: XR lumbar spine 1V [id number] Date/Time of Exam: 04/20/2024 1:44 PM Reason For Exam: decompression, or pic 2 intraoperative anterior posterior images of the lower lumbar spine are submitted. Images were obtained for intraoperative purposes.
--- NOTE | 2024-04-20 14:10 | ANE.PACU2 ---
Inpatient post-anesthesia follow up: Airway intact: Yes Vital signs: Temperature 97.4 F Pulse Rate 86 Respiratory Rate 16 Blood Pressure 122/83 Pulse Oximetry 95 Oxygen Delivery Me thod Nasal Cannula Oxygen Flow Rate 2 Fraction of Inspir ed Oxygen Hydration adequate: Yes Nausea and vomiting: No Pain level: 1 Mental status: Baseline
[2024-04-20] MEDS: lactated ringers 1,000 ML 90 ML IV (15:44)
[2024-04-20] MEDS: oxyCODONE-APAP 10-325 mg Tablet PO (15:45)
[2024-04-20] MEDS: docusate sodium 100 mg Capsule PO (18:08)
[2024-04-20] MEDS: ketorolac 30 mg/mL INJ IVP (19:55)
[2024-04-21] VITALS: BP 104/71; PULSE 100; RESP 20; TEMP 37.1; O2SAT 96
[2024-04-21 00:05] VITALS: RESP 16
[2024-04-21] MEDS: alum-mag-hydroxide-sime 30 mL UDC PO ×2 (00:05→06:16)
[2024-04-21] MEDS: oxyCODONE-APAP 10-325 mg Tablet PO ×2 (00:05→06:09)
[2024-04-21] MEDS: lactated ringers 1,000 ML 90 ML IV (03:01)
[2024-04-21] MEDS: ceFAZolin 2,000 MG in sodium chloride 0.9% (plus) 50 ML 100 MG IV (03:55)
[2024-04-21 04:00] VITALS: BP 102/66; PULSE 100; RESP 18; TEMP 36.5; O2SAT 97
[2024-04-21 04:51] VITALS: BMI 33.3
[2024-04-21] MEDS: ketorolac 30 mg/mL INJ IVP (05:40)
[2024-04-21 06:00] VITALS: PULSE 82
[2024-04-21 06:09] VITALS: RESP 16
--- NOTE | 2024-04-21 08:02 | P.DS_ITS ---
Discharge Providers Date of Admission: 04/20/24 13:15 Date of Discharge: April 21, 2024 Attending Provider at Admission: Lul Be DO Attending Provider at Discharge: Lul Be DO Primary Care Provider: Matteo French MD Reason for Visit Reason for Visit: M47.26 Physical Exam Narrative: Patient states leg feels much better. Plan to discharge him today. Urinary Catheter Management: Boss: Cath Placed During This Visit: yes, but has since been removed by the nurse Reason for Continuing Indwelling Catheter: Decision to DC Catheter Urinary Catheter Date of Insertion: 04/20/24 Urinary Catheter Time of Insertion: 09:00 Date Urinary Catheter Removed: 04/21/24 Time Urinary Catheter Discontinued: 05:51 Discharge Data Studies Completed and Pending Completed Studies During Hospitalization Category Date Time Status XR lumbar spine 1V [id number] Routine Exams 04/20/24 13:44 Completed Pending at discharge Category Date Time Status C-arm Fluoroscopy [id number] Routine Exams 04/20/24 09:12 Taken Vitals Last Vital Signs Temp 97.7 F 04/21/24 04:00 Pulse 82 04/21/24 06:00 Resp 16 04/21/24 06:09 BP 102/66 04/21/24 04:00 Pulse Ox 97 04/21/24 04:00 O2 Del Method Nasal Cannula 04/21/24 04:00 O2 Flow Rate 2 04/20/24 20:00 FiO2 2 04/20/24 17:28 Discharge Plan Discharge Patient Disposition: Home Condition: Stable Prescriptions: New oxycodone-acetaminophen 10-325 mg tablet 1 tab PO Q4H PRN (Reason: pain) 7 Days Qty: 40 0RF Continued cyclobenzaprine 10 mg tablet 10 mg PO TID PRN (Reason: muscle spasm) Qty: 30 0RF duloxetine [Cymbalta] 30 mg capsule,delayed release(DR/EC) 30 mg PO DAILY Qty: 30 1RF (DME) [place] j collar See Rx Instructions .Route .MEDSUPPLY Qty: 1 0RF Rx Instructions: As directed (DME) miscellaneous medical supply Misc See Rx Instructions .Route Qty: 1 0RF Rx Instructions: As directed (DME) [place] J collar See Rx Instructions .Route .MEDSUPPLY Qty: 1 0RF Rx Instructions: As directed (DME) soft cervical collar See Rx Instructions .Route .MEDSUPPLY Qty: 1 0RF Rx Instructions: As directed amlodipine 5 mg tablet 5 mg PO DAILY Qty: 90 1RF Eliquis 5 mg tablet 5 mg PO BID Qty: 180 2RF Hold Instructions: Resume on 12/30/23. omeprazole 40 mg capsule,delayed release(DR/EC) 40 mg PO DAILY Qty: 90 1RF atorvastatin [Lipitor] 40 mg tablet 40 mg PO DAILY Qty: 30 0RF metoprolol succinate 50 mg tablet extended release 24 hr 50 mg PO DAILY Qty: 30 0RF oxycodone 10 mg tablet 10 mg PO Q4H MDD 6 PRN (Reason: pain) 7 Days Qty: 40 0RF lisinopril 40 mg tablet 20 mg PO DAILY Discharge Orders: Discharge Order (Routine); Ordered 04/21/24 Ordered By: Lul Be Discharge Diet: Advance as tolerated Discharge Activity: Limit activity as instructed Patient Instructions: Acute Wound Care (DC), Opioid Safety, Post Anesthesia Care Activity Restrictions/Additional Instructions: Thank you for [facility] for your care! The following is a list of instructions, from your provider, to follow upon your discharge to ensure you have the optimal recovery from your recent injury orsurgery. Follow-up care is a tamayo part of your treatment and safety. Be sure to make and go to all appointments, and call your doctor if you are having problems. If you do not already have a follow-up appointment made, call Dr. Be office in the next 1-3 days to make follow up appointment for 2 weeks at [phone]. It is also a good idea to know your test results and keep a list of the medicines you take. Medications will be prescribed for you at your provider's discretion. These medications are to be used as instructed; if they are taken more often that prescribed they will not be refilled early and in most cases will not be refilled at all. > When a refill is needed,you should contact carlos enrique lewis 2-3 business days before your prescription runs out. Medications will NOT be refilled by communications strategist providers after hours! > Many pain medications contain Tylenol (Acetaminophen). Do not consume more than 4,000 mg of Tylenol per day in total with any combination ofmedications. > Pain medications can cause constipation. Please use an over the counter stool softener as directed, while taking pain medications. Consulty our local pharmacist with questions or recommendations on stool softeners. If constipation persists, contact our office or your primary care provider. > While under our care,you are not to receive pain medications or other controlled substances from any other provider unless our office is notified and approves. Any attempts to do so will result in refusal to prescribe any further pain medications and possible dismissal from our practice. ? Your wound and/or dressing should remain clean and dry for 2 days after surgery. On postoperative day 2 (48 hours after your surgery) the dressing (if present) should be removed and it is okay to shower and get the incision wet. Pad dry afterwards. No further dressing should be required from that point on. Do not put any creams or ointments on theincision > It is normal for there to be a small amount of discharge (bloody or blood tinged) present from a surgical wound for the first 1-3days. > The wound should be examined twice a day for signs of infection. Mild redness or bruising is to be expected but indications that an infection maybe starting would include; An increase in redness, swelling, or discharge, a foul odor present around the incision, and/or a fever greater than 101 ?F ? Showering is permitted, however we ask that you do not take a bath, sit in a whirlpool / Jacuzzi, or go swimming for 1 month. For only the first 2 days after surgery, lt wilt be necessary for you to cover your wound/dressing with plastic and tape to keep it dry. ? Walking is essential for the healing process after surgery. We would like you to slowly advance your walking. This should be done on relatively flat clear ground (inside or out) or can be done on a treadmill. Remember this goal does not have to happen all at once, slowly increase your distance and duration. This can be broken into more more than one walk per day as tolerated. Patients who walk as directed after surgery rarely require Physical Therapy. In the unlikely event this issue arises your provider will direct hospital staff to make the appropriate arrangements. ? No lifting over 5 pounds {a gallon of milk) or bending/twisting until further notice. Each of these activities places an unnecessary amount of stress onto the body and can impede the delicate healing process. > Instead of bending at the waist, keep your back straight and bend at the knees. > Instead of twisting your torso, keep your back straight and turn your entire body with your feet. ? You may sleep in any position which makes you comfortable. Many patients find comfort sleeping in a reclining chair. It is not abnormal to have difficulty sleeping for the first several weeks following your surgery. We recommend trying Benadry! or Tylenol PM as directed to help with your sleeping difficulties. Both medications are over the counter and available withoutprescription. ? NO SMOKING!!! Smoking dramatically increases the probability of developing postoperative wound infections. ? Common complaints after lumbar and/or thoracic spine surgery include, but are not limited to: numbness and/or tingling in the legs, pain around the incision and surrounding tissues, muscle spasms, or stiffness of the middle to low back. Contact our office if these symptoms persist or if an acute change occurs. ? No driving for the first 3-5days, and not while taking narcotics until seen at your follow-up appointment and cleared. There are no restrictions for riding on short trips, however if you take a longer trip, arrangements should be made to make regular stops to get out of the vehicle and stretch . ? Swelling is an unfortunate event that will take place with any s urgery and is the primary source of your postoperative discomfort. While walking and regular approved activities helps control inflammation, there are additional steps you can take to minimizeswelling. > Place ice over the surgical site and surrounding tissue for twenty minutes, followed by applying a low/medium heat (heating pad) for an additional twenty minutes every 1-2 hours as needed for painrelief. > You may use of over the counter anti-inflammatory medications (Ibuprofen, Motrin, Aleve, Advil, etc) as directed on the package label. These types of medicines wm significantly reduce the amount of discomfort you experience after surgery from swelling. It should be noted that if you have and allergy to any of these medications, or a history of ulcers or kidney disease you should consult you primary care provider prior to starting these medications. Discharge Attestations Time Spent in Discharge Care*: less than 30 min Quality Metrics Clinical Quality Measures [ No reported AMI, CVA or VTE this stay] Coding Level of Care Code Acute Code for Chg Fwd
[2024-04-21] MEDS: pantoprazole DR 40 mg Tablet PO (08:19)
[2024-04-21] MEDS: amlodipine 5 mg Tablet PO (08:19)
[2024-04-21] MEDS: docusate sodium 100 mg Capsule PO (08:20)
[2024-04-21] MEDS: metoprolol succinate ER (24 HR) 50 mg Tablet PO (08:20)
[2024-04-21] MEDS: duloxetine 30 mg Capsule PO (08:20)
[2024-04-21] MEDS: atorvastatin 40 mg Tablet PO (08:20)
[2024-04-21] MEDS: lisinopril 20 mg Tablet PO (08:20)
--- NOTE | 2024-04-21 09:58 | PC.SOCIAL ---
Transportation Patient has been unable to contact the person who is supposed to transport. Morena, [facility] discussed w/ patient and he is agreeable to [facility] transport. She called [employer] and set up ride. Reservation @ [phone].
--- NOTE | 2024-04-21 11:00 | PC.SOCIAL ---
DME: Patient has DC'd and CM has walker order. Pre Cert completed. [employer]: [id number]. Faxed all information to HOME and requested that they call patient to discuss delivery or picking machine operator.
[2024-04-21 11:15] VITALS: BP 114/75; PULSE 101; RESP 16; TEMP 37; O2SAT 93
--- NOTE | 2024-04-21 12:29 | PC.NURSE ---
Discussed discharge with patient, follow up appointments, new medications and continued medications. Patient verbalized understanding. Told patient his Roller wheel chair will be delivered per social economist or patient could run by HOME and pick it up.
== END 2024-04-21 10:30 | disposition home or self-care (01) ==
LOC: MEDSURG 13:21
PROVIDERS: Admitting Provider Orthopaedic Surgery; PCP Family Medicine; Visit Provider Orthopaedic Surgery
PROC: (CPT 63005; principal; 2024-04-20 10:15)
DX: M48.062 Spinal stenosis, lumbar region with neurogenic claudication (principal); I48.91 Unspecified atrial fibrillation; Z86.16 Personal history of COVID-19; I10 Essential (primary) hypertension; Z79.01 Long term (current) use of anticoagulants; K21.9 Gastro-esophageal reflux disease without esophagitis; E78.5 Hyperlipidemia, unspecified; Z87.820 Personal history of traumatic brain injury
CPT/HCPCS: 63047; 63048; 72020; 76000; 97110; 97116; 97161; G0378; J0690; J1100; J1885; J2250; J2371; J2405; J2704; J3010; J3370; J3490; J7030; J7120

== ENCOUNTER 2024-05-21 20:05 | Emergency (ER) | payer OTHER, MEDICAID, SELFPAY ==
[2024-05-21 20:12] VITALS: BP 123/83; PULSE 82; RESP 17; TEMP 37; O2SAT 98; BMI 31.4
--- NOTE | 2024-05-21 20:23 | ED_ITS ---
HPI - Extremity Problem 2 General: Chief complaint: Extremity Problem,Nontraumatic Stated complaint: right leg purple swollen think blood clot had b4 Time Seen by Provider: 05/21/24 20:22 History of Present Illness: 59-year-old male patient comes in today with increase redness and swelling to the right lower leg. Patient appears nontoxic. Patient endorses that he had a recent back surgery a little over 1 month ago. Patient has noticed over the last 2 days he has had increased tenderness to the calf and posterior knee of the right lower extremity and some now redness and swelling. Patient has a history of DVT in the past in which she has been on Eliquis. Patient has not been on Eliquis for some time now. Review of Systems 2 General: Reports: 10 or more systems reviewed and unremarkable except in HPI and below PFSH ED 2 PFSH: Medical History AMBROSE positive Hypertension Hypercholesteremia Lupus History of blood clots Heartburn History of traumatic head injury Surgical History Hx of cervical spine surgery Hx of tracheostomy Hx of colonoscopy 2019 History of esophagogastroduodenoscopy (EGD) Family History Sister Cancer lung, hodgkins lymphoma Other CAD (coronary artery disease) Chronic kidney disease (CKD) Hyperlipidemia Hypertension Lung disease Stroke Denies family history of Diabetes Clotting disorder Dementia Psychiatric illness Anesthesia complication Bleeding disorder Social History Smoking and tobacco/nicotine status: former use of tobacco/nicotine Alcohol intake: never Substance/Drug Use: never Lives independently: Yes Current occupational status: unemployed and disabled Special lena needs: No Agree to transfusion: Yes Physical Exam 2 Const: COMMON NORMALS: alert HENMT: COMMON NORMALS: normocephalic HEAD & SCALP: normocephalic Neck/C-Spine: COMMON NORMALS: full ROM Resp: COMMON NORMALS: normal respiratory effort and clear to auscultation bilaterally AUSCULTATION: clear to auscultation bilaterally Cardio: COMMON NORMALS: regular rate RATE: regular rate GI: COMMON NORMALS: non-tender Back/Pelvis: COMMON NORMALS: thoracic and lumbar spine normal to inspection Extremity: RIGHT LOWER EXTREMITY: Yes lower leg (Tenderness, popliteal knee pain, increased swelling and redness) Neuro: SENSORIUM/ORIENTATION: Yes alert Skin: COMMON NORMALS: turgor normal GENERAL SKIN EXAM: turgor normal Course 2 Vital Signs: Vital signs: Vital Signs Temperature 98.6 F 05/21/24 20:12 Pulse Rate 82 05/21/24 20:12 Respiratory Rate 17 05/21/24 20:12 Blood Pressure 123/83 05/21/24 20:12 Pulse Oximetry 98 05/21/24 20:12 Oxygen Delivery Me thod Room Air 05/21/24 20:12 MDM - Extremity (Nontraumatic) Medical Decision Making 59-year-old male patient comes in today with increased swelling and redness to the right lower extremity. On exam patient appears nontoxic. Patient appears in no acute distress. Respirations are even lungs are clear to auscultation. Swelling is noted to the right lower extremity with some mild redness. Distal pulses are intact. Differential diagnosis includes but not limited to dependent edema, cellulitis, DVT. CBC CMP was unremarkable. Ultrasound confirmed a DVT to the right lower extremity from the femoral to popliteal angle. Patient be placed on Eliquis at a starting dose. Patient reports understanding of Plan and need for follow-up or return to the ER. Caregiver is present and also expresses understanding. Lab Data 05/21/24 20:37 05/21/24 20:37 Laboratory Results WBC 8.72 10^3/uL (3.29-11.43) 05/21/24 20:37 RBC 4.34 10^6/uL (3.85-5.65) 05/21/24 20:37 Hgb 13.20 g/dL (11.27-16.99) 05/21/24 20:37 Hct 41.7 % (37-53) 05/21/24 20:37 MCV 96.1 fl (82-101) 05/21/24 20:37 MCH 30.4 pg (27-33) 05/21/24 20: MCHC 31.7 g/dL (30-55) 05/21/24 20:37 RDW 14.4 % (12.1-15.1) 05/21/24 20:37 Plt Count 204 10^3/cmm (157-399) 05/21/24 20:37 MPV 9.4 fL (7.4-10.4) 05/21/24 20:37 Neut % (Auto) 63.0 % 05/21/24 20:37 Lymph % (Auto) 22.4 % 05/21/24 20:37 [place] % (Auto) 11.8 % 05/21/24 20:37 Eos % (Auto) 1.7 % 05/21/24 20:37 Baso % (Auto) 0.6 % 05/21/24 20:37 Neut # (Auto) 5.50 10^3/uL (1.8-7.7) 05/21/24 20:37 Lymph # (Auto) 2.0 10^3/uL (0.8-4.8) 05/21/24 20:37 [place] # (Auto) 1.0 10^3/uL (0.2-0.9) H 05/21/24 20:37 Eos # (Auto) 0.2 10^3/uL (0.0-0.8) 05/21/24 20:37 Baso # (Auto) 0.1 10^3/uL (0.0-0.1) 05/21/24 20:37 Nucleated RBC % (auto) 0 % 05/21/24 20:37 Nucleated RBCs # 0.0 /100WBC 05/21/24 20:37 PT 13.30 SECONDS (12.1-14.9) 05/21/24 20:37 INR 0.98 (0.8-1.2) 05/21/24 20:37 APTT 26.3 SECONDS (23.9-36.7) 05/21/24 20:37 Sodium 138 mmol/L (136-145) 05/21/24 20:37 Potassium 4.0 mmol/L (3.5-5.1) 05/21/24 20:37 Chloride 105 mmol/L (98-107) 05/21/24 20:37 Carbon Dioxide 23 mmol/L (22-29) 05/21/24 20:37 Anion Gap 14.0 (5-19) 05/21/24 20:37 BUN 13 mg/dL (6-20) 05/21/24 20:37 Creatinine 1.0 mg/dL (0.7-1.2) 05/21/24 20:37 GFR Calculation 77.0 mL/min (90-130) L 05/21/24 20:37 Glucose 107 mg/dL (65-115) 05/21/24 20:37 Calculated Osmolality 287 mOsm/kg (285-295) 05/21/24 20:37 Calcium 9.0 mg/dL (8.5-10.5) 05/21/24 20:37 Total Bilirubin 0.3 mg/dL (0.15-1.2) 05/21/24 20:37 AST 16 U/L (0-40) 05/21/24 20:37 ALT 12 U/L (0-41) 05/21/24 20:37 Alkaline Phosphatase 74 U/L (40-130) 05/21/24 20:37 Total Protein 7.1 g/dL (6.6-8.7) 05/21/24 20:37 Albumin 3.8 g/dL (3.5-5.2) 05/21/24 20:37 Globulin 3.3 g/dL (1.3-4.6) 05/21/24 20:37 All radiology interpretation(s) finalized by discharge Discharge Plan Discharge Patient Disposition: Home Clinical Impression: Deep vein thrombosis of lower extremity Qualifiers: Affected thrombotic vein of extremity: popliteal Chronicity: acute Laterality: right Qualified Code(s): I82.431 - Acute embolism and thrombosis of right popliteal vein Condition: Stable Prescriptions: New Abhi DVT-PE Treat 30D Start 5 mg (74 tabs) tablets,dose pack See Rx Instructions .ROUTE .COMPLEX Qty: 74 0RF Rx Instructions: orally per package directions hydrocodone-acetaminophen 5-325 mg tablet 1 tab PO Q6H PRN (Reason: pain) Qty: 10 0RF Rx Instructions: Dx: DVT No Action cyclobenzaprine 10 mg tablet 10 mg PO TID PRN (Reason: muscle spasm) Qty: 30 0RF (DME) [place] j collar See Rx Instructions .Route .MEDSUPPLY Qty: 1 0RF Rx Instructions: As directed (DME) miscellaneous medical supply Misc See Rx Instructions .Route Qty: 1 0RF Rx Instructions: As directed (DME) [place] J collar See Rx Instructions .Route .MEDSUPPLY Qty: 1 0RF Rx Instructions: As directed (DME) soft cervical collar See Rx Instructions .Route .MEDSUPPLY Qty: 1 0RF Rx Instructions: As directed Eliquis 5 mg tablet 5 mg PO BID Qty: 180 2RF Hold Instructions: Resume on 12/30/23. lisinopril 40 mg tablet 20 mg PO DAILY Qty: 90 1RF sulfamethoxazole-trimethoprim [Bactrim] 400-80 mg tablet 1 tab PO DAILY 7 Days Qty: 7 0RF gabapentin 600 mg tablet 600 mg PO TID 30 Days Qty: 90 0RF fluoxetine [Prozac] 20 mg capsule 20 mg PO DAILY Qty: 60 1RF amlodipine 5 mg tablet 5 mg PO DAILY Qty: 90 1RF omeprazole 40 mg capsule,delayed release(DR/EC) 40 mg PO DAILY Qty: 90 1RF metoprolol succinate 50 mg tablet extended release 24 hr 50 mg PO DAILY Qty: 30 0RF atorvastatin [Lipitor] 40 mg tablet 40 mg PO DAILY Qty: 30 0RF duloxetine [Cymbalta] 30 mg capsule,delayed release(DR/EC) 30 mg PO DAILY Qty: 30 1RF gabapentin 300 mg capsule 300 mg PO TID 30 Days Qty: 90 0RF oxycodone 10 mg tablet 10 mg PO Q4H MDD 6 PRN (Reason: pain) 7 Days Qty: 40 0RF diazepam [Valium] 5 mg tablet 5 mg PO BID PRN (Reason: anxiety) 7 Days Qty: 14 0RF Discharge Orders: Discharge ED (Routine); Ordered 05/21/24 Ordered By: Juan Ramon Morgan Referrals: Matteo French MD [Primary Care Provider] - Discharge Diet: Usual diet Discharge Activity: Increase activity as tolerated Patient Instructions: Deep Vein Thrombosis (ED) Activity Restrictions/Additional Instructions: Medications as directed. Follow-up with primary care in 3 to 5 days. Return to ED for worsening symptoms such as chest pain or shortness of breath. Thank you for choosing [facility] for your healthcare needs today. Please realize that you were seen in the emergency department and that we are providing you with an emergency medical screening exam and this may not be a complete and all exclusive of all testing and/or medical workup we may need to determine your element or severity of your illness. It is very important that you follow-up as instructed with your primary care provider or specialist for the additional evaluation and to discuss your medical treatment plan. You may return to the emergency department should you have concerns or if your condition changes or worsens in any way. Coding Level of Care Code ED Television Serv[employer] for Bernarda Kingsley
--- NOTE | 2024-05-21 20:23 | USR_ITS ---
PROCEDURE INFORMATION: Exam: US Duplex Right Lower Extremity Veins, Limited Exam date and time: 05/21/2024 9:22 PM Age: 59 years old Clinical indication: Pain; Leg, upper and leg, lower; Right; Additional info: Dvt TECHNIQUE: Imaging protocol: Real-time duplex ultrasound of the right extremity with 2-D arzate scale, color Doppler flow and spectral waveform analysis including responses to compression and other maneuvers (when performed) with image documentation. Limited exam was focused on the right lower extremity veins. COMPARISON: CT pelvis w con* [id number] 08/06/2023 4:52 PM FINDINGS: Right deep veins: Occlusive DVT in the distal right superficial femoral vein, popliteal vein, and peroneal vein. Common femoral vein is patent. Superficial veins: Greater saphenous vein at the saphenofemoral junction is patent without thrombus. Soft tissues: Unremarkable. US/[place] [id number] IMPRESSION: Occlusive DVT in the distal right superficial femoral vein, popliteal vein, and peroneal vein.
[2024-05-21 20:42] LABS: Basophils # 0.1 10^3/uL (0.0-0.1); Basophils % 0.6 %; Eosinophils # 0.2 10^3/uL (0.0-0.8); Eosinophils % 1.7 %; Hematocrit 41.7 % (37-53); Lymphocytes % 22.4 %; Mean Corpuscular HGB Conc 31.7 g/dL (30-55); Mean Corpuscular Hemoglobin 30.4 pg (27-33); Mean Corpuscular Volume 96.1 fl (82-101); Mean Platelet Volume 9.4 fL (7.4-10.4); Monocytes % 11.8 %; Nucleated Red Blood Cells % 0 %; Platelet Count 204 10^3/cmm (157-399); Red Blood Count 4.34 10^6/uL (3.85-5.65); Red Cell Distribution Width 14.4 % (12.1-15.1); White Blood Count 8.72 10^3/uL (3.29-11.43)
[2024-05-21 20:54] LABS: INR 0.98 (0.8-1.2)
[2024-05-21 20:55] LABS: Partial Thromboplastin Time 26.3 SECONDS (23.9-36.7)
[2024-05-21 21:04] LABS: Alanine Aminotransferase 12 U/L (0-41); Albumin Level 3.8 g/dL (3.5-5.2); Alkaline Phosphatase 74 U/L (40-130); Aspartate Amino Transferase 16 U/L (0-40); Blood Urea Nitrogen 13 mg/dL (6-20); Carbon Dioxide 23 mmol/L (22-29); Chloride 105 mmol/L (98-107); Creatinine Clr Calc Pharmacy 99.1426; Globulin 3.3 g/dL (1.3-4.6); Glucose 107 mg/dL (65-115); Osmolality Calculated 287 mOsm/kg (285-295); Sodium 138 mmol/L (136-145); Total Bilirubin 0.3 mg/dL (0.15-1.2); Total Protein 7.1 g/dL (6.6-8.7)
[2024-05-21] MEDS: apixaban 5 mg Tablet 10 MG PO (21:44)
[2024-05-21] MEDS: HYDROcodone-acetaminophen 5-325 mg Tablet 1 TAB PO (21:44)
[2024-05-21 23:14] VITALS: BP 123/83; PULSE 82; RESP 17; TEMP 37; O2SAT 98
== END 2024-05-21 21:54 | disposition home or self-care (01) ==
PROVIDERS: Emergency Provider Nurse Practitioner Family; PCP Family Medicine
DX: I82.431 Acute embolism and thrombosis of right popliteal vein (principal); Z79.01 Long term (current) use of anticoagulants; Z87.891 Personal history of nicotine dependence; I10 Essential (primary) hypertension; M32.9 Systemic lupus erythematosus, unspecified
CPT/HCPCS: 36415; 80053; 85025; 85610; 85730; 93971; 99284

== ENCOUNTER → 2024-08-09 15:55 | Outpatient (BNVA) | payer OTHER, MEDICAID, SELFPAY | PROVIDERS: PCP Family Medicine; Visit Provider Orthopaedic Surgery | DX: M54.9 Dorsalgia, unspecified (principal) | CPT/HCPCS: 72100 ==

== ENCOUNTER → 2024-09-13 15:18 | Outpatient (BNVA) | payer OTHER, MEDICAID, SELFPAY | PROVIDERS: PCP Family Medicine; Visit Provider Orthopaedic Surgery | DX: M25.562 Pain in left knee (principal) | CPT/HCPCS: 73562 ==

== ENCOUNTER 2024-10-25 10:29 | Outpatient (RCR) | payer OTHER, MEDICAID, SELFPAY | END 2024-11-01 23:59 | disposition home or self-care (01) | LOC: SPT 10:29 | PROVIDERS: Visit Provider Orthopaedic Surgery | DX: M54.9 Dorsalgia, unspecified (principal); G89.29 Other chronic pain | CPT/HCPCS: 97161 ==

== ENCOUNTER → 2025-01-03 08:45 | Outpatient (BNVA) | payer MEDICAID, SELFPAY | PROVIDERS: PCP Family Medicine; Visit Provider Orthopaedic Surgery | DX: M48.061 Spinal stenosis, lumbar region without neurogenic claudication (principal); M54.41 Lumbago with sciatica, right side; G89.29 Other chronic pain; M25.569 Pain in unspecified knee | CPT/HCPCS: 72100 ==

== ENCOUNTER → 2025-01-10 09:09 | Outpatient (BNVA) | payer MEDICAID, SELFPAY | PROVIDERS: PCP Family Medicine; Visit Provider Orthopaedic Surgery | DX: S83.207A Unspecified tear of unspecified meniscus, current injury, left knee, initial encounter (principal); W19.XXXA Unspecified fall, initial encounter | CPT/HCPCS: 73560; 73565 ==

== ENCOUNTER 2025-01-20 15:23 | Outpatient (CLI) | payer MEDICAID, SELFPAY ==
--- NOTE | 2025-01-20 15:15 | MR_ITS ---
WS: [id number] MRI LEFT KNEE NONCONTRAST TECHNIQUE: Axial PD, coronal PD fat sat, coronal PD, sagittal PD, and sagittal PD fat-sat images obtained. CLINICAL INFORMATION: meniscal tear COMPARISON: None. FINDINGS: Distal quadriceps and patella tendons are intact. Normal PCL. Diffuse abnormal appearance to the ACL with diffuse irregularity and thickening. Increased T1 and T2 signal likely due to extensive mucoid degeneration. No normal signal fibers visualized. Recommend correlation with ACL integrity and instability. Normal lateral meniscus. Complex radial tear involving the posterior horn medial meniscus. Diffuse chronic intrasubstance signal abnormality involving the medial meniscus. Additional small horizontal tear involving the anterior horn medial meniscus. Moderate chondromalacia patella. Small suprapatellar effusion. Prepatellar and infrapatellar soft tissue edema. Medial lateral patellar retinaculum appear intact. Normal bone marrow signal in the fibular head. Lateral collateral ligament and biceps femoris appear intact. Medial collateral ligament appears intact. Complex lobulated septated popliteal cyst measuring 1.4 x 2.3 x 4.1 cm AP by transverse by craniocaudal. MR/MR knee LT wo con* [id number] IMPRESSION: 1. Diffuse abnormal thickened appearance of the ACL with increased T1 and T2 s ignal abnormality likely due to diffuse extensive mucoid degeneration. Recommen d correlation with ACL integrity and prior injury. 2. PCL appears intact. 3. Radial tear involving the posterior horn medial meniscus with an additional suspected tiny horizontal tear involving the anterior horn medial meniscus. 4. Lateral meniscus appears intact. 5. Grade III chondromalacia patella. 6. 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 Outbridge grading: grade III: partial-thickness cartilage loss with focal ulcer ation
== END 2025-01-20 15:24 | disposition home or self-care (01) ==
LOC: RAD 15:24
PROVIDERS: PCP Family Medicine; Visit Provider Orthopaedic Surgery
DX: S83.242A Other tear of medial meniscus, current injury, left knee, initial encounter (principal); X58.XXXA Exposure to other specified factors, initial encounter; R93.6 Abnormal findings on diagnostic imaging of limbs; M22.42 Chondromalacia patellae, left knee; M71.22 Synovial cyst of popliteal space [Baker], left knee
CPT/HCPCS: 73721

== ENCOUNTER → 2025-02-06 10:26 | Outpatient (BNVA) | payer MEDICAID, SELFPAY | PROVIDERS: PCP Family Medicine; Visit Provider Orthopaedic Surgery | DX: Z01.818 Encounter for other preprocedural examination (principal) | CPT/HCPCS: 36415; 80053; 81001; 85025 ==

== ENCOUNTER 2025-03-22 04:56 | Emergency (ER) | payer MEDICAID, MEDICARE, SELFPAY ==
[2025-03-22 05:04] VITALS: BMI 32.8
[2025-03-22 05:07] VITALS: BP 129/91; PULSE 133; RESP 18; TEMP 36.8; O2SAT 91
--- NOTE | 2025-03-22 05:09 | XRR_ITS ---
PROCEDURE INFORMATION: Exam: XR Chest Exam date and time: 03/22/2025 5:19 AM Age: 59 years old Clinical indication: Cough and dyspnea; Additional info: Dyspnea/cough TECHNIQUE: Imaging protocol: Radiologic exam of the chest. Views: 1 view. COMPARISON: CT cervical spin wo con* [id number] 11/17/2023 9:28 AM FINDINGS: Lungs: Unremarkable. No consolidation. Pleural spaces: Unremarkable. No pleural effusion. No pneumothorax. Heart/Mediastinum: Unremarkable. No cardiomegaly. Bones/joints: Unremarkable. XR/XR chest 1V portable [id number] IMPRESSION: No acute findings.
--- NOTE | 2025-03-22 05:10 | XRR_ITS ---
PROCEDURE INFORMATION: Exam: XR Left Knee Exam date and time: 03/22/2025 5:21 AM Age: 59 years old Clinical indication: Pain; Knee; Left TECHNIQUE: Imaging protocol: Radiologic exam of the left knee. Views: 3 views. COMPARISON: MR knee LT wo con* [id number] 01/20/2025 3:34 PM FINDINGS: Bones/joints: Normal. Soft tissues: Normal. XR/XR knee LT 3V* [id number] IMPRESSION: No acute findings.
--- NOTE | 2025-03-22 05:11 | ECG_ITS ---
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 Measurements Intervals [place] Rate: 130 P: 62 GA: 158 QRS: -17 QRSD: 91 T: 66 QT: 299 QTc: 441 Interpretive Statements SINUS TACHYCARDIA ABNORMAL RHYTHM ECG No previous ECG available for comparison Electronically Signed On 03-23-2025 18:12:36 CDT by Cristina Estrada M.D. [email or web address]
[2025-03-22 05:20] LABS: Basophils # 0.1 10^3/uL (0.0-0.1); Basophils % 0.8 %; Eosinophils # 0.2 10^3/uL (0.0-0.8); Eosinophils % 1.7 %; Lymphocytes # 2.7 10^3/uL (0.8-4.8); Lymphocytes % 29.3 %; Mean Corpuscular HGB Conc 33.5 g/dL (30-55); Mean Corpuscular Hemoglobin 30.8 pg (27-33); Mean Corpuscular Volume 91.9 fl (82-101); Mean Platelet Volume 9.6 fL (7.4-10.4); Monocytes # 1.5 10^3/uL (0.2-0.9); Monocytes % 16.3 %; Neutrophils # 4.78 10^3/uL (1.8-7.7); Neutrophils % 51.7 %; Nucleated Red Blood Cells % 0 %; Platelet Count 222 10^3/cmm (157-399); Red Blood Count 5.33 10^6/uL (3.85-5.65); Red Cell Distribution Width 13.8 % (12.1-15.1); White Blood Count 9.25 10^3/uL (3.29-11.43)
--- NOTE | 2025-03-22 05:20 | W.ED.EXTPRO ---
HPI - Extremity Problem General: Chief complaint: Extremity Problem,Nontraumatic Stated complaint: L knee extreme pain Time Seen by Provider: 03/22/25 05:09 History of Present Illness: 59-year-old male presents emergency room complaining of left knee pain. Patient is on gabapentin and oxycodone he states he has not had his pain medicine for several days because he was incarcerated and they did not give it to him. 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 Complaining of right leg swelling left knee pain. On arrival he is tachycardic with an oxygen saturation hovering around 90%. He is in a sinus tach at 130-140. He denies any chest pain at this time nursing staff noted on his arrival he was mildly diaphoretic as well from walking in from the parking lot. Associated symptoms: Deny chest pain, fever(s) or rash Related Data Previous Rx's ?Medication ?Instructions ?Recorded [place] j collar #1 ea 09/08/23 miscellaneous medical supply #1 ea 09/16/23 [place] J collar #1 ea 10/01/23 soft cervical collar #1 ea 10/29/23 apixaban 5 mg tablet (Eliquis) 5 mg PO BID #180 tabs 05/04/24 compression hose (thigh) #1 ea 06/20/24 atorvastatin 40 mg tablet 40 mg PO DAILY #90 tabs 11/07/24 lisinopril 20 mg tablet 20 mg PO DAILY #90 tabs 11/07/24 hydroxyzine HCl 50 mg tablet 50 mg PO BID PRN anxety #60 tabs 01/20/25 amlodipine 5 mg tablet 5 mg PO DAILY #90 tabs 01/23/25 metoprolol succinate 50 mg 50 mg PO DAILY #90 tabs 02/01/25 tablet,extended release 24 hr pantoprazole 20 mg tablet,delayed 20 mg PO DAILY #60 tabs 03/06/25 release (Protonix) cyclobenzaprine 10 mg tablet 10 mg PO TID PRN muscle spasm #90 03/21/25 tabs diclofenac sodium 75 mg 75 mg PO Q12H PRN pain #20 tabs 03/22/25 tablet,delayed release Allergies Allergy/AdvReac Type Severity Reaction Status Date / Time No Known Allergies Allergy Verified 03/22/25 05:07 Review of Systems Const: Denies: fever(s) or chills Card: Denies: chest pain Resp: Reports: dyspnea GI: Denies: abdominal pain : Denies: dysuria, urinary frequency or urinary urgency Musc: Reports: joint pain; Denies: neck pain or back pain Skin/Breast: Denies: rash PFSH ED PFSH: Medical History Left knee pain AMBROSE positive Hypertension Hypercholesteremia Lupus History of blood clots Heartburn History of traumatic head injury Surgical History Hx of cervical spine surgery Hx of tracheostomy Hx of colonoscopy 2019 History of esophagogastroduodenoscopy (EGD) Family History Sister Cancer lung, hodgkins lymphoma Other CAD (coronary artery disease) Chronic kidney disease (CKD) Hyperlipidemia Hypertension Lung disease Stroke Denies family history of Diabetes Clotting disorder Dementia Psychiatric illness Anesthesia complication Bleeding disorder Social History Smoking and tobacco/nicotine status: current some day tobacco/nicotine user Alcohol intake: never Substance/Drug Use: never Lives independently: Yes Current occupational status: unemployed and disabled Special lena needs: No Agree to transfusion: Yes Physical Exam Const: GENERAL APPEARANCE: cooperative ORIENTATION/CONSCIOUSNESS: Yes awake, Yes oriented to person, Yes oriented to place and Yes oriented to time HENMT: COMMON NORMALS: normocephalic, atraumatic and hearing grossly normal bilaterally HEAD & SCALP: normocephalic and atraumatic Resp: COMMON NORMALS: normal respiratory effort, No retractions, No use of accessory muscles and clear to auscultation bilaterally AUSCULTATION: clear to auscultation bilaterally Cardio: COMMON NORMALS: regular rate, regular rhythm and No murmurs present (Cardio) RATE: regular rate RHYTHM: regular rhythm GI: COMMON NORMALS: Soft to palpation and No hepatosplenomegaly present AUSCULTATION: Yes normoactive bowel sounds PALPATION: Yes Soft to palpation, No Tenderness to palpation present (GI), No Guarding due to palpation present (GI) and Yes No hepatosplenomegaly present Extremity: COMMON NORMALS: normal to inspection, capillary refill normal, no clubbing, cyanosis or edema, no calf tenderness and no pedal edema Neuro: SENSORIUM/ORIENTATION: Yes oriented to person, Yes oriented to place and Yes oriented to time Skin: COMMON NORMALS: no rashes or lesions noted GENERAL SKIN EXAM: no rashes or lesions noted Course Vital Signs: Vital signs: Vital Signs Temperature 98.3 F 03/22/25 05:07 Pulse Rate 112 H 03/22/25 08:00 Respiratory Rate 17 03/22/25 08:00 Blood Pressure 150/94 03/22/25 08:00 Pulse Oximetry 93 03/22/25 08:00 Oxygen Delivery Me thod Room Air 03/22/25 05:07 MDM - Extremity (Nontraumatic) Medical Decision Making Discharge. Been home with diclofenac to use as needed. Patient was wanting us to refill his oxycodone advised him that we cannot refill oxycodone for chronic pain issues. He was tachycardic when he got it was no sign of DVT or PE on exam his heart rate improved with IV fluids. Chest x-ray x-ray was negative CTA of the chest negative troponins trended negative. Discharge patient home follow-up with his primary care doctor. Medical Records I reviewed the patient's medical records. Lab Data I reviewed the patient's lab results. 03/22/25 05:15 03/22/25 05:15 Radiology Impressions Chest X-Ray 03/22/25 05:09 IMPRESSION: No acute findings. Knee X-Ray 03/22/25 05:10 IMPRESSION: No acute findings. Chest CTA 03/22/25 05:27 IMPRESSION: 1. No evidence of pulmonary embolism. 2. No acute cardiopulmonary process. 3. 1.9 x 1.9 cm solid-appearing mass apparently extending off the upper pole of the left kidney. Alternatively, this could arise from the tail of the pancreas. Further evaluation with nonemergent MRI abdomen without and with contrast is recommended. Malignancy is not excluded. Laboratory Results WBC 9.25 10^3/uL (3.29-11.43) 03/22/25 05:15 RBC 5.33 10^6/uL (3.85-5.65) 03/22/25 05:15 Hgb 16.40 g/dL (11.27-16.99) 03/22/25 05:15 Hct 49.0 % (37-53) 03/22/25 05:15 MCV 91.9 fl (82-101) 03/22/25 05:15 MCH 30.8 pg (27-33) 03/22/25 05:15 MCHC 33.5 g/dL (30-55) 03/22/25 05:15 RDW 13.8 % (12.1-15.1) 03/22/25 05:15 Plt Count 222 10^3/cmm (157-399) 03/22/25 05:15 MPV 9.6 fL (7.4-10.4) 03/22/25 05:15 Neut % (Auto) 51.7 % 03/22/25 05:15 Lymph % (Auto) 29.3 % 03/22/25 05:15 [place] % (Auto) 16.3 % 03/22/25 05:15 Eos % (Auto) 1.7 % 03/22/25 05:15 Baso % (Auto) 0.8 % 03/22/25 05:15 Neut # (Auto) 4.78 10^3/uL (1.8-7.7) 03/22/25 05:15 Lymph # (Auto) 2.7 10^3/uL (0.8-4.8) 03/22/25 05:15 [place] # (Auto) 1.5 10^3/uL (0.2-0.9) H 03/22/25 05:15 Eos # (Auto) 0.2 10^3/uL (0.0-0.8) 03/22/25 05:15 Baso # (Auto) 0.1 10^3/uL (0.0-0.1) 03/22/25 05:15 Nucleated RBC % (auto) 0 % 03/22/25 05:15 Nucleated RBCs # 0.0 /100WBC 03/22/25 05:15 Sodium 136 mmol/L (136-145) 03/22/25 05:15 Potassium 3.9 mmol/L (3.5-5.1) 03/22/25 05:15 Chloride 98 mmol/L (98-107) 03/22/25 05:15 Carbon Dioxide 25 mmol/L (22-29) 03/22/25 05:15 Anion Gap 16.9 (5-19) 03/22/25 05:15 BUN 24 mg/dL (6-20) H 03/22/25 05:15 Creatinine 1.5 mg/dL (0.7-1.2) H 03/22/25 05:15 GFR Calculation 48.2 mL/min (90-130) L 03/22/25 05:15 Glucose 119 mg/dL (65-115) H 03/22/25 05:15 Calculated Osmolality 287 mOsm/kg (285-295) 03/22/25 05:15 Calcium 9.6 mg/dL (8.5-10.5) 03/22/25 05:15 Total Bilirubin 1.5 mg/dL (0.15-1.2) H 03/22/25 05:15 AST 27 U/L (0-40) 03/22/25 05:15 ALT 16 U/L (0-41) 03/22/25 05:15 Alkaline Phosphatase 72 U/L (40-130) 03/22/25 05:15 Troponin T Baseline 18 ng/L (0-15) H 03/22/25 05:15 Troponin T 120 Minute 16.77 ng/L (0-15) H 03/22/25 06:45 Delta Troponin T -1.23 ABS# (0-10) L 03/22/25 06:45 Total Protein 7.8 g/dL (6.6-8.7) 03/22/25 05:15 Albumin 4.5 g/dL (3.5-5.2) 03/22/25 05:15 Globulin 3.3 g/dL (1.3-4.6) 03/22/25 05:15 TSH 7.27 uIU/mL (0.27-4.20) H 03/22/25 05:15 Urine Color [place] (Yellow) A 03/22/25 05:48 Urine Appearance Clear (CLEAR) 03/22/25 05:48 Urine pH 5.0 (5-7) 03/22/25 05:48 Ur Specific [place] 1.025 (1.005-1.030) 03/22/25 05:48 Urine Protein Trace (Negative) A 03/22/25 05:48 Urine Glucose (UA) Negative (Normal) 03/22/25 05:48 Urine Ketones Trace (Negative) 03/22/25 05:48 Urine Blood 3+ (Negative) A 03/22/25 05:48 Urine Nitrate Negative (Negative) 03/22/25 05:48 Urine Bilirubin Negative (Negative) 03/22/25 05:48 Urine Urobilinogen 1.0 mg/dL (Negative) 03/22/25 05:48 Ur Leukocyte Esterase 1+ (Negative) A 03/22/25 05:48 Urine RBC 21-50 /hpf (0-2) H 03/22/25 05:48 Urine WBC 11-20 /hpf (0-5) H 03/22/25 05:48 Ur Squamous Epith Cells 0-5 /hpf (0-5) 03/22/25 05:48 Amorphous Sediment Not Reportable 03/22/25 05:48 Urine Bacteria None seen /hpf (NONE) 03/22/25 05:48 Hyaline Casts 8.26 /lpf 03/22/25 05:48 Urine Opiates Screen Negative ng/mL (Negative) 03/22/25 05:48 Ur Barbiturates Screen Negative ng/mL (Negative) 03/22/25 05:48 Ur Phencyclidine Scrn Negative ng/mL (Negative) 03/22/25 05:48 Ur Amphetamines Screen Negative ng/mL (Negative) 03/22/25 05:48 U Benzodiazepines Scrn Negative ng/mL (Negative) 03/22/25 05:48 Urine Cocaine Screen Negative ng/mL (Negative) 03/22/25 05:48 U Marijuana (THC) Screen Negative ng/mL (Negative) 03/22/25 05:48 All radiology interpretation(s) finalized by discharge Discharge Plan Discharge Patient Disposition: Home Clinical Impression: Tear of medial meniscus of left knee, Dehydration, Left kidney mass Condition: Stable Prescriptions: New diclofenac sodium 75 mg tablet,delayed release (DR/EC) 75 mg PO Q12H PRN (Reason: pain) Qty: 20 0RF No Action atorvastatin 40 mg tablet 40 mg PO DAILY Qty: 90 1RF lisinopril 20 mg tablet 20 mg PO DAILY Qty: 90 1RF hydroxyzine HCl 50 mg tablet 50 mg PO BID PRN (Reason: anxety) Qty: 60 1RF (DME) [place] j collar See Rx Instructions .Route .MEDSUPPLY Qty: 1 0RF Rx Instructions: As directed (DME) miscellaneous medical supply Misc See Rx Instructions .Route Qty: 1 0RF Rx Instructions: As directed (DME) [place] J collar See Rx Instructions .Route .MEDSUPPLY Qty: 1 0RF Rx Instructions: As directed (DME) soft cervical collar See Rx Instructions .Route .MEDSUPPLY Qty: 1 0RF Rx Instructions: As directed Eliquis 5 mg tablet 5 mg PO BID Qty: 180 2RF (DME) compression hose (thigh) See Rx Instructions .Route .MEDSUPPLY Qty: 1 0RF Rx Instructions: As directed amlodipine 5 mg tablet 5 mg PO DAILY Qty: 90 1RF metoprolol succinate 50 mg tablet extended release 24 hr 50 mg PO DAILY Qty: 90 1RF pantoprazole [Protonix] 20 mg tablet,delayed release (DR/EC) 20 mg PO DAILY Qty: 60 0RF cyclobenzaprine 10 mg tablet 10 mg PO TID PRN (Reason: muscle spasm) Qty: 90 1RF Discharge Orders: Discharge ED (Routine); Ordered 03/22/25 Ordered By: Leonid Sawant Referrals: Matteo French MD [Primary Care Provider, Family Practice] Discharge Diet: Usual diet Discharge Activity: Limit activity as instructed Patient Instructions: Opioid Safety, Pain Management Activity Restrictions/Additional Instructions: Thank you for choosing [facility] for your healthcare needs today. It is very important that you follow up as instructed or that you return to the Emergency Department should you have concerns or if your condition changes or worsens in any way. You are seen emergency room complaining of left knee pain. This likely caused by the meniscal tear that was seen on your previous MRI. You are given a prescription for diclofenac to use as needed for pain. Narcotic pain medications will need to be refilled through your primary care physician orthopedist who is prescribed them in the past. Incidental finding on the CT of your chest showed a mass arising either from the left kidney or possibly from the pancreas that should be followed up through your primary care doctor will need repeat imaging. Evaluation for blood clot in the lung and acute coronary syndrome today were negative. You were mildly dehydrated you are given IV fluids to help with this. Is very important you follow-up with your primary care doctor. Print Language: Polish Coding Level of Care Code ED Cutting Pressman for Bernarda Kingsley
--- NOTE | 2025-03-22 05:27 | CTR_ITS ---
PROCEDURE INFORMATION: Exam: CTA Chest With Contrast Exam date and time: 03/22/2025 6:01 AM Age: 59 years old Clinical indication: Other: Tachycardia, hypoxia; Additional info: Tachycardia hypoxia TECHNIQUE: Imaging protocol: Computed tomographic angiography of the chest with contrast. Exam focused on the arteries. 3D rendering (Not supervised by radiologist): MIP and/or 3D reconstructed images were created by the technologist. Radiation optimization: All CT scans at this facility use at least one of these dose optimization techniques: automated exposure control; mA and/or kV adjustment per patient size (includes targeted exams where dose is matched to clinical indication); or iterative reconstruction. Contrast material: OMNI 350; Contrast volume: 100 ml; Contrast route: INTRAVENOUS (IV); COMPARISON: CR (CHEST, ) 03/22/2025 5:19 AM RADIATION DOSE METRICS: Total DLP (mGy-cm): 417.8 FINDINGS: Pulmonary arteries: No evidence of pulmonary embolism. Aorta: Aortic atherosclerotic disease is seen without evidence of aneurysm. Lungs: Bibasilar dependent atelectasis. No consolidation. Pleural spaces: Unremarkable. No pneumothorax. No pleural effusion. Heart: Unremarkable. No cardiomegaly. No pericardial effusion. Coronary arteries: Coronary artery calcifications are present. Lymph nodes: Unremarkable. No enlarged lymph nodes. Kidneys: 1.9 x 1.9 cm solid-appearing mass apparently extending off the upper pole of the left kidney. Bones/joints: Unremarkable. No acute fracture. Soft tissues: Unremarkable. CT/CT angio chest PE protcl [id number] IMPRESSION: 1. No evidence of pulmonary embolism. 2. No acute cardiopulmonary process. 3. 1.9 x 1.9 cm solid-appearing mass apparently extending off the upper pole of the left kidney. Alternatively, this could arise from the tail of the pancreas. Further evaluation with nonemergent MRI abdomen without and with contrast is recommended. Malignancy is not excluded.
[2025-03-22] MEDS: ketorolac 30 mg/mL INJ IVP (05:34)
[2025-03-22 05:39] LABS: Troponin(5th) Baseline 18 ng/L (0-15)
[2025-03-22] MEDS: sodium chloride 0.9% 1,000 ML 999 ML IV ×2 (05:48→07:12)
[2025-03-22 05:49] LABS: Alanine Aminotransferase 16 U/L (0-41); Albumin Level 4.5 g/dL (3.5-5.2); Alkaline Phosphatase 72 U/L (40-130); Anion Gap 16.9 (5-19); Aspartate Amino Transferase 27 U/L (0-40); Blood Urea Nitrogen 24 mg/dL (6-20); Calcium 9.6 mg/dL (8.5-10.5); Carbon Dioxide 25 mmol/L (22-29); Chloride 98 mmol/L (98-107); Creatinine Clr Calc Pharmacy 67.4895; Globulin 3.3 g/dL (1.3-4.6); Glomerular Filtration Rate 48.2 mL/min (90-130); Glucose 119 mg/dL (65-115); Osmolality Calculated 287 mOsm/kg (285-295); Potassium 3.9 mmol/L (3.5-5.1); Sodium 136 mmol/L (136-145); Thyroid Stimulating Hormone 7.27 uIU/mL (0.27-4.20); Total Bilirubin 1.5 mg/dL (0.15-1.2); Total Protein 7.8 g/dL (6.6-8.7)
[2025-03-22 06:02] LABS: Bilirubin Urine Negative (Negative); Blood Urine 3+ (Negative); Glucose Urine UA Negative (Normal); Ketones Urine Trace (Negative); Leukocyte Esterase Urine 1+ (Negative); Nitrate Urine Negative (Negative); Protein Urine Trace (Negative); Specific Gravity, Urine 1.025 (1.005-1.030); Urine Appearance Clear (CLEAR)
[2025-03-22] MEDS: iohexol 350 mg/mL 500 mL Btl (per mL) IV (06:04)
[2025-03-22 06:07] LABS: Add Urine Microscopic? YES; Bacteria Urine None Seen /hpf; Hyaline Casts Urine 8.26 /lpf; RBC Urine 21-50 /hpf (0-2); Squamous Epithelial Cell Urine 0-5 /hpf (0-5)
[2025-03-22 06:09] LABS: Amphetamines Screen Urine Negative (Negative); Barbiturates Screen Urine Negative (Negative); Benzodiazepines Screen Urine Negative (Negative); Cocaine Screen Urine Negative (Negative); Opiate Screen Urine Negative (Negative); PCP Screen Urine Negative (Negative); THC Screen Urine Negative (Negative)
[2025-03-22 06:14] VITALS: BP 117/85; PULSE 120; RESP 16; O2SAT 92
[2025-03-22 06:31] VITALS: BP 131/90; PULSE 115; RESP 16; O2SAT 91
[2025-03-22 06:31] LABS: Add Urine Culture? Yes; Urine Color Orange (Yellow)
[2025-03-22] MEDS: gabapentin 300 mg Capsule 600 MG PO (06:46)
--- NOTE | 2025-03-22 06:50 | ECG_ITS ---
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 Measurements Intervals [place] Rate: 111 P: 65 GA: 172 QRS: -24 QRSD: 90 T: 69 QT: 322 QTc: 438 Interpretive Statements SINUS TACHYCARDIA BORDERLINE LEFT AXIS DEVIATION [QRS AXIS < -20] ABNORMAL RHYTHM ECG Compared to ECG 03/22/2025 05:11:31 No significant changes Electronically Signed On 03-24-2025 16:36:26 CDT by Cristina Estrada M.D. [email or web address] [id number]
[2025-03-22 07:05] LABS: Troponin 5 2HR 16.77 ng/L (0-15)
[2025-03-22 07:07] LABS: Troponin 5 2HR Delta -1.23 ABS# (0-10)
[2025-03-22 08:00] VITALS: BP 150/94; PULSE 112; RESP 17; O2SAT 93
== END 2025-03-22 08:19 | disposition home or self-care (01) ==
PROVIDERS: Emergency Provider Family Medicine; PCP Family Medicine
DX: S83.242A Other tear of medial meniscus, current injury, left knee, initial encounter (principal); E86.0 Dehydration; N28.89 Other specified disorders of kidney and ureter; Z79.01 Long term (current) use of anticoagulants; Z72.0 Tobacco use; Z87.820 Personal history of traumatic brain injury; I10 Essential (primary) hypertension; X58.XXXA Exposure to other specified factors, initial encounter
CPT/HCPCS: 36415; 71045; 71275; 73562; 80053; 80306; 81001; 84443; 84484; 85025; 87086; 93005; 96361; 96374; 99285; J1885; J7030; J9999

== ENCOUNTER 2025-03-30 19:43 | Inpatient (IN) | payer MEDICARE, MEDICAID, SELFPAY ==
[2025-03-30 20:02] VITALS: BP 115/73; PULSE 100; RESP 16; TEMP 36.7; O2SAT 97; BMI 33.5
--- NOTE | 2025-03-30 22:10 | XRR_ITS ---
PROCEDURE INFORMATION: Exam: XR Chest Exam date and time: 03/30/2025 10:29 PM Age: 59 years old Clinical indication: Other: Leg swelling both legs TECHNIQUE: Imaging protocol: Radiologic exam of the chest. Views: 1 view. COMPARISON: CT angio chest PE protcl [id number] 03/22/2025 6:01 AM FINDINGS: Lungs: Bilateral hilar to lower lobe subsegmental atelectasis versus minimal infiltrate. Pleural spaces: Unremarkable. No pleural effusion. No pneumothorax. Heart/Mediastinum: Cardiomegaly. Bones/joints: Unremarkable. XR/XR chest 1V portable [id number] IMPRESSION: 1. Cardiomegaly. 2. Bilateral hilar to lower lobe subsegmental atelectasis versus minimal infiltrate.
--- NOTE | 2025-03-30 22:28 | ECG_ITS ---
[facility] Date: 2025-03-30 Pat Name: Wyatt Hoffman Department: Room: EDIP Gender: Male Nurse General Duty: : 1965 Requested By: Chris Blanco Order Number: [id number] Nba MD: MARISSA UGARTE Measurements Intervals [place] Rate: 86 P: 55 VA: 180 QRS: -3 QRSD: 104 T: 47 QT: 372 QTc: 445 Interpretive Statements SINUS RHYTHM Compared to ECG 03/22/2025 06:50:24 Sinus tachycardia no longer present Electronically Signed On 04-05-2025 22:58:36 CDT by MARISSA UGARTE [id number]
[2025-03-30 22:43] LABS: Basophils # 0.1 10^3/uL (0.0-0.1); Eosinophils # 0.3 10^3/uL (0.0-0.8); Hematocrit 44.5 % (37-53); Lymphocytes % 28.8 %; Mean Corpuscular Hemoglobin 30.8 pg (27-33); Mean Corpuscular Volume 93.1 fl (82-101); Mean Platelet Volume 9.6 fL (7.4-10.4); Monocytes % 14.7 %; Neutrophils # 3.59 10^3/uL (1.8-7.7); Neutrophils % 50.8 %; Nucleated Red Blood Cells % 0 %; Platelet Count 308 10^3/cmm (157-399); Red Blood Count 4.78 10^6/uL (3.85-5.65); Red Cell Distribution Width 13.8 % (12.1-15.1); White Blood Count 7.06 10^3/uL (3.29-11.43)
[2025-03-30 22:55] VITALS: BP 123/86; PULSE 97; O2SAT 93
[2025-03-30 22:59] LABS: Troponin(5th) Baseline 13 ng/L (0-15)
[2025-03-30 23:14] LABS: Alanine Aminotransferase 32 U/L (0-41); Albumin Level 3.8 g/dL (3.5-5.2); Alkaline Phosphatase 72 U/L (40-130); Anion Gap 14.3 (5-19); Aspartate Amino Transferase 42 U/L (0-40); Blood Urea Nitrogen 15 mg/dL (6-20); Calcium 8.8 mg/dL (8.5-10.5); Carbon Dioxide 25 mmol/L (22-29); Chloride 104 mmol/L (98-107); Creatinine Clr Calc Pharmacy 85.2333; Globulin 3.2 g/dL (1.3-4.6); Glomerular Filtration Rate 62.4 mL/min (90-130); Glucose 99 mg/dL (65-115); NT Pro B Type Natriuretic Pept 115 pg/mL (0-125); Osmolality Calculated 289 mOsm/kg (285-295); Potassium 4.3 mmol/L (3.5-5.1); Sodium 139 mmol/L (136-145); Total Bilirubin 0.4 mg/dL (0.15-1.2)
--- NOTE | 2025-03-30 23:14 | ED_ITS ---
HPI - Extremity Problem 2 General: Chief complaint: ER Hold Stated complaint: heat swelling pain both feet Time Seen by Provider: 03/30/25 22:02 History of Present Illness: Patient is a 59-year-old male seen for bilateral leg swelling and redness and pain. He states that his feet and legs were normal size with minimal erythema 1 week ago but first the right leg started to swell and on the left. He states that the swelling gets better at night when he has his feet elevated but gets much worse throughout the day. He is more concerned with the redness and pain and warmth than with the swelling. Redness is worse again on the right foot and lower leg when compared with the left. He was seen in urgent care and started on oral antibiotics which he states has not helped at all. He can now not walk because of the pain which he describes as 10 of 10 when walking. He denies lightheadedness, fevers, cough, abdominal pain, chest pain, has no other acute complaints. Related Data Previous Rx's ?Medication ?Instructions ?Recorded [employer] j collar #1 ea 09/08/23 miscellaneous medical supply #1 ea 09/16/23 [place] J collar #1 ea 10/01/23 soft cervical collar #1 ea 10/29/23 apixaban 5 mg tablet (Eliquis) 5 mg PO BID #180 tabs 0 05/04/24 compression hose (thigh) #1 ea 06/20/24 atorvastatin 40 mg tablet 40 mg PO DAILY #90 tabs 04/26 lisinopril 20 mg tablet 20 mg PO DAILY #90 tabs 04/26 hydroxyzine HCl 50 mg tablet 50 mg PO BID PRN anxety # 60 tabs 01/20/25 amlodipine 5 mg tablet 5 mg PO DAILY #90 tabs 01/23 metoprolol succinate 50 mg 50 mg PO DAILY #90 tabs 12/27 tablet,extended release 24 hr pantoprazole 20 mg tablet,delayed 20 mg PO DAILY #60 t abs 03/06/25 release (Protonix) cyclobenzaprine 10 mg tablet 10 mg PO TID PRN muscle s pasm #90 03/21/25 tabs oxycodone-acetaminophen 10 mg-325 1 tab PO TID PRN hugo n 30 days #90 03/23/25 mg tablet tabs sertraline 50 mg tablet (Zoloft) 50 mg PO DAILY #30 ta bs 03/23/25 mupirocin 2 % topical ointment 1 applic topical BID #2 2 grams 03/28/25 ([place]) sulfamethoxazole 800 1 tab PO BID 10 days #20 tab s 03/28/25 mg-trimethoprim 160 mg tablet (Bactrim DS) Allergies Allergy/AdvReac Type Severity Reaction Status Date / Time No Known Allergies Allergy Verified 03/30/25 15:36 PFSH ED 2 PFSH: Medical History Left knee pain AMBROSE positive Hypertension Hypercholesteremia Lupus History of blood clots Heartburn History of traumatic head injury Surgical History Hx of cervical spine surgery Hx of tracheostomy Hx of colonoscopy 2019 History of esophagogastroduodenoscopy (EGD) Family History Sister Cancer lung, hodgkins lymphoma Other CAD (coronary artery disease) Chronic kidney disease (CKD) Hyperlipidemia Hypertension Lung disease Stroke Denies family history of Diabetes Clotting disorder Dementia Psychiatric illness Anesthesia complication Bleeding disorder Social History Smoking and tobacco/nicotine status: current some day tobacco/nicotine user Alcohol intake: never Substance/Drug Use: never Lives independently: Yes Current occupational status: unemployed and disabled Special lena needs: No Agree to transfusion: Yes Physical Exam 2 Const: COMMON NORMALS: no acute distress, patient oriented x3 and alert HENMT: COMMON NORMALS: normocephalic and atraumatic HEAD & SCALP: n ormocephalic and atraumatic Eye: COMMON NORMALS: Equal, round and reactive pupils present, EOMs intact bilaterally and no scleral icterus PUPIL: Yes Equal, round and reactive pupils present Resp: COMMON NORMALS: normal respiratory effort and No retractions Cardio: COMMON NORMALS: regular rate, regular rhythm and No murmurs present (Cardio) RATE: regular rate RHYTHM: regular rhythm GI: COMMON NORMALS: Normal to inspection, nondistended, normoactive bowel sounds present, Soft to palpation and non-tender PALPATION: Yes Soft to palpation Neuro: COMMON NORMALS: patient oriented x3 SENSORIUM/ORIENTATION: Yes alert Skin: NARRATIVE SKIN EXAM: 2+ pitting edema of the bilateral feet a nd legs to the knees. There is erythema with warmth and areas of skin breakdown on both feet and lower legs, right greater than left concerning for cellulitis. Course 2 Vital Signs: Vital signs: Vital Signs Temperature 98.0 F 03/30/25 20:02 Pulse Rate 89 03/31/25 00:00 Respiratory Rate 16 03/30/25 20:02 Blood Pressure 123/86 03/30/25 22:55 Pulse Oximetry 95 03/31/25 00:00 Oxygen Delivery Me thod Room Air 03/31/25 00:00 MDM - Extremity (Nontraumatic) Medical Decision Making In summary, the patient is a generally well-appearing 59 male seen for worsening redness and swelling and warmth of the right lower extremity and the left to a lesser extent. Swelling and redness have been getting worse significantly over the last week. He has already been seen in the outpatient setting and started on oral antibiotics which have not stopped the redness or swelling or pain. At this point he cannot walk because of 10 of 10 pain associated with the swelling and redness of his feet. He shares that the edema of his legs and feet get significant better at night when he has his feet up. BNP is not markedly elevated. I suspect he is suffering from a outpatient oral antibiotic failure and would benefit from IV antibiotics. He will be started on clindamycin and admitted to the hospitalist service for further observation and care Lab Data 03/30/25 22:38 03/30/25 22:38 Radiology Impressions Chest X-Ray 03/30/25 22:10 IMPRESSION: 1. Cardiomegaly. 2. Bilateral hilar to lower lobe subsegmental atelectasis versus minimal infiltrate. Laboratory Results WBC 7.06 10^3/uL (3.29-11.43) 03/30/25 22:38 RBC 4.78 10^6/uL (3.85-5.65) 03/30/25 22:38 Hgb 14.70 g/dL (11.27-16.99) 03/30/25 22:38 Hct 44.5 % (37-53) 03/30/25 22:38 MCV 93.1 fl (82-101) 03/30/25 22:38 MCH 30.8 pg (27-33) 03/30/25 22:38 MCHC 33.0 g/dL (30-55) 03/30/25 22:38 RDW 13.8 % (12.1-15.1) 03/30/25 22:38 Plt Count 308 10^3/cmm (157-399) 03/30/25 22:38 MPV 9.6 fL (7.4-10.4) 03/30/25 22:38 Neut % (Auto) 50.8 % 03/30/25 22:38 Lymph % (Auto) 28.8 % 03/30/25 22:38 [place] % (Auto) 14.7 % 03/30/25 22: Eos % (Auto) 4.0 % 03/30/25 22: Baso % (Auto) 1.0 % 03/30/25 22: Neut # (Auto) 3.59 10^3/uL (1.8-7.7) 03/30/25 22:38 Lymph # (Auto) 2.0 10^3/uL (0.8-4.8) 03/30/25 22:38 [place] # (Auto) 1.0 10^3/uL (0.2-0.9) H 03/30/25 22: Eos # (Auto) 0.3 10^3/uL (0.0-0.8) 03/30/25 22: Baso # (Auto) 0.1 10^3/uL (0.0-0.1) 03/30/25 22: Nucleated RBC % (auto) 0 % 03/30/25 22: Nucleated RBCs # 0.0 /100WBC 03/30/25 22:38 Sodium 139 mmol/L (136-145) 03/30/25 22: Potassium 4.3 mmol/L (3.5-5.1) 03/30/25 22: Chloride 104 mmol/L (98-107) 03/30/25 22: Carbon Dioxide 25 mmol/L (22-29) 03/30/25 22: Anion Gap 14.3 (5-19) 03/30/25 22: BUN 15 mg/dL (6-20) 03/30/25 22: Creatinine 1.2 mg/dL (0.7-1.2) 03/30/25 22:38 GFR Calculation 62.4 mL/min (90-130) L 03/30/25 22:38 Glucose 99 mg/dL (65-115) 03/30/25 22:38 Calculated Osmolality 289 mOsm/kg (285-295) 03/30/25 22:38 Lactic Acid 1.1 mmol/L (0.5-2.2) 03/30/25 22:38 Calcium 8.8 mg/dL (8.5-10.5) 03/30/25 22:38 Total Bilirubin 0.4 mg/dL (0.15-1.2) 03/30/25 22:38 AST 42 U/L (0-40) H 03/30/25 22:38 ALT 32 U/L (0-41) 03/30/25 22:38 Alkaline Phosphatase 72 U/L (40-130) 03/30/25 22:38 Troponin T Baseline 13 ng/L (0-15) 03/30/25 22:38 Troponin T 120 Minute 10.61 ng/L (0-15) 03/31/25 00:26 Delta Troponin T -2.39 ABS# (0-10) L 03/31/25 00:26 Troponin T Hi Sens 6Hr 11.90 ng/L (0-15) 03/31/25 04:19 Troponin T Hi Sens 6Hr Delta -1.10 ng/L (0-12) L 03/31/25 04:19 NT-Pro-B Natriuret Pep 115 pg/mL (0-125) 03/30/25 22:38 Total Protein 7.0 g/dL (6.6-8.7) 03/30/25 22:38 Albumin 3.8 g/dL (3.5-5.2) 03/30/25 22:38 Globulin 3.2 g/dL (1.3-4.6) 03/30/25 22:38 No radiology studies performed this visit EKG Data EKG 1: Interpretation: Time?2227?normal sinus rhythm, rate of 86, no ST segment elevation or depression, no T wave inversions, intervals within normal limits. QTc = 415 Discharge Plan Discharge Patient Disposition: Admitted As Inpatient Clinical Impression: Cellulitis of leg, right Condition: Stable Coding Level of Care Code ED Net Application Architect for g Fwdestiney
[2025-03-30] MEDS: clindamycin 600 MG/50 ML PREMIX 100 MG IV (23:35)
[2025-03-30 23:36] LABS: Lactic Sepsis W/Reflex 1.1 mmol/L (0.5-2.2)
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
[2025-03-30 23:38] VITALS: PULSE 88; O2SAT 99
[2025-03-31] VITALS (8 sets, daily range): BP systolic 99–152; BP diastolic 56–113; PULSE 85–97; RESP 16–21; TEMP 36.3–36.8; O2SAT 90–98
[2025-03-31 00:55] LABS: Troponin 5 2HR 10.61 ng/L (0-15)
[2025-03-31 00:56] LABS: Troponin 5 2HR Delta -2.39 ABS# (0-10)
--- NOTE | 2025-03-31 05:44 | PM.HP ---
Providers/Chief Complaint Admitting Physician: Ronny Lee MD Primary Care Provider: Matteo French MD Chief Complaint: heat swelling pain both feet History of Present Illness Wyatt Hoffman Jr is a 59 year old male with history of intermittent methamphetamine use has chronic leg swelling. Patient tells me he has history of stopping breathing but never formally diagnosed with sleep apnea in the lab. His in 2018 but noted he snored heavy and stopped breathing his current girlfriend notices the same. His mother whom patient has lived with intermittently his whole life also has said that he stops breathing and snores heavily. Patient reports chronic leg swelling worse through the day better at night. He is on amlodipine medication for his blood pressure. The last week he has had redness of the right leg and some pain. He was started on Bactrim outpatient and white count is normal but redness persists. He was seen by Dr. Ramos and started on clindamycin and held in the ER pending available bed on [facility]. 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 He thinks he has had Staph aureus infections off and on for about 30 years. Patient denies tobacco use ever alcohol in general none in the last 10 years but he admits to 1 jasson ironically yesterday with dinner which was the first and 10 years or more. He states he used methamphetamines last about 5 weeks ago states he is does not use pot because he is on probation Review of Systems Narrative: General no fevers has had some chills but denies sweats weight is stable Cardiovascular no chest pain he does have palpitations and edema chronically. He states he has a history of meth use Respiratory positive for cough wheezing GI no nausea vomiting diarrhea constipation positive for hesitancy but denies dysuria hematuria Neuro denies seizures strokes limb weakness Medications/Allergies Home Medications ?Medication ?Instructions ?Recorded ?Confirmed ?Last Taken ?Type [place] j collar #1 ea 09/08/23 03/30/25 Unknown Rx miscellaneous medical supply #1 ea 09/16/23 03/30/25 Unknown Rx [place] collar #1 ea 10/01/23 03/30/25 Unknown Rx soft cervical collar #1 ea 10/29/23 03/30/25 Unknown Rx apixaban 5 mg tablet (Eliquis) 5 mg PO BID #180 tabs 05/04/24 03/30/25 03/18/25 Rx compression hose (thigh) #1 ea 06/20/24 03/30/25 Unknown Rx atorvastatin 40 mg tablet 40 mg PO DAILY #90 tabs 11/07/24 03/30/25 03/21/25 Rx lisinopril 20 mg tablet 20 mg PO DAILY #90 tabs 11/07/24 03/30/25 Unknown Rx hydroxyzine HCl 50 mg tablet 50 mg PO BID PRN anxety #60 tabs 01/20/25 03/30/25 Unknown Rx amlodipine 5 mg tablet 5 mg PO DAILY #90 tabs 01/23/25 03/30/25 03/21/25 Rx metoprolol succinate 50 mg 50 mg PO DAILY #90 tabs 02/01/25 03/30/25 03/21/25 Rx tablet,extended release 24 hr pantoprazole 20 mg tablet,delayed 20 mg PO DAILY #60 tabs 03/06/25 03/30/25 03/21/25 Rx release (Protonix) cyclobenzaprine 10 mg tablet 10 mg PO TID PRN muscle spasm #90 03/21/25 03/30/25 03/21/25 Rx tabs oxycodone-acetaminophen 10 mg-325 1 tab PO TID PRN pain 30 days #90 03/23/25 03/30/25 Unknown Rx mg tablet tabs sertraline 50 mg tablet (Zoloft) 50 mg PO DAILY #30 tabs 03/23/25 03/30/25 Unknown Rx mupirocin 2 % topical ointment 1 applic topical BID #22 grams 03/28/25 03/30/25 Unknown Rx (Centany) sulfamethoxazole 800 1 tab PO BID 10 days #20 tabs 03/28/25 03/30/25 Unknown Rx mg-trimethoprim 160 mg tablet (Bactrim DS) Allergies Allergy/AdvReac Type Severity Reaction Status Date / Time No Known Allergies Allergy Verified 03/30/25 15:36 PFSH Acute PFSH: Medical History (Updated 03/31/25 @ 05:56 by Ronny Lee MD) Paroxysmal atrial fibrillation Methamphetamine abuse, episodic Leg edema, right Sleep apnea Left knee pain AMBROSE positive Hypertension Hypercholesteremia Lupus History of blood clots Heartburn History of traumatic head injury Surgical History Hx of cervical spine surgery Hx of tracheostomy Hx of colonoscopy 2019 History of esophagogastroduodenoscopy (EGD) Family History Sister Cancer lung, hodgkins lymphoma Other CAD (coronary artery disease) Chronic kidney disease (CKD) Hyperlipidemia Hypertension Lung disease Stroke Denies family history of Diabetes Clotting disorder Dementia Psychiatric illness Anesthesia complication Bleeding disorder Social History (Updated 03/31/25 @ 05:53 by Ronny Lee MD) Smoking and tobacco/nicotine status: never used tobacco/nicotine Alcohol intake: never Substance/Drug Use: current Substance/Drug use type: Amphetamines Other substance/drug use details: Intermittent last was 5 weeks before 03/31/2025 Additional social history: Patient wants full code as discussed with Ronny Lee MD 03/31/2025 Lives independently: Yes Current occupational status: unemployed and disabled 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 Patient has sonorous snoring breathing with obstruction and this appeared to obstruct inspiration once or twice a minute. 1 time it disturbed him and made him restless oropharynx Mallampati 2 CV regular rate and rhythm no loud murmur Lungs clear to auscultation bilaterally Abdomen positive bowel tones soft nontender Calves left calf 1+ edema right calf 2+ edema Skin he has pale erythema on the right leg and also some chronic venous changes just with hemosiderin deposit Data 03/30/25 22:38 03/30/25 22:38 Micro: Microbiology 03/30/25 23:18 Blood Culture - Preliminary Blood SPECIMEN COLLECTED 03/30/25 22:38 Blood Culture - Preliminary Blood SPECIMEN COLLECTED A&P Assessment and plan (1) Cellulitis of leg, right: Is admitted to the hospital and started on clindamycin and leg elevation and NUPUR hose (2) Sleep apnea: Start CPAP here in the hospital and I counseled patient regarding need to treat sleep apnea to decrease leg edema and recurrent cellulitis (3) Leg edema, right: Will start low-dose diuretic (4) Hypothyroidism (acquired): TSH elevated today we will start levothyroxine 75 mcg daily (5) Hypertension: Hold amlodipine due to leg swelling continue with lisinopril and metoprolol (6) Hypercholesteremia: Continue atorvastatin (7) Methamphetamine abuse, episodic: Encouraged patient to quit methamphetamines due to potential for weakening of the heart. Will order echocardiogram (8) DDD (degenerative disc disease), lumbar: Chronic stable (9) Status post cervical spinal fusion: Chronic stable (10) History of blood clots: Continue Eliquis (11) Paroxysmal atrial fibrillation: Continue Eliquis and metoprolol. Treat sleep apnea. Obtain echocardiogram PDMP PDMP Reviewed: Not Reviewed Attestations Medical Necessity Statement*: Patient mid to the hospital for cellulitis venous stasis and sleep apnea and will require greater than 2 midnights Coding Level of Care Code 83295 Diagnoses Cellulitis of leg, right L03.115 Sleep apnea G47.30 Leg edema, right R60.0 Hypothyroidism (acquired) E03.9 Hypertension I10 Hypercholesteremia E78.00 Methamphetamine abuse, episodic F15.10 DDD (degenerative disc disease), lumbar M51.36 Status post cervical spinal fusion Z98.1 History of blood clots Z86.718 Paroxysmal atrial fibrillation I48.0 Time Spent (min) 75
--- NOTE | 2025-03-31 07:12 | PC.NURSE ---
THIS NURSE ASSUMED CARE @ [id number].
[2025-03-31] MEDS: FUROsemide 40 mg Tablet PO (07:55)
[2025-03-31] MEDS: clindamycin 600 MG/50 ML PREMIX 100 MG IV (07:55)
[2025-03-31] MEDS: levothyroxine 75 mcg Tablet PO (07:55)
--- NOTE | 2025-03-31 09:07 | PC.SOCIAL ---
IMM Update pg 2 of IMM Updated and reviewed w/ patient. Copy provided and copy dated, initialed and placed in chart.
[2025-03-31] MEDS: lisinopril 20 mg Tablet PO (09:22)
[2025-03-31] MEDS: potassium chloride ER 20 mEq Tablet PO (09:22)
[2025-03-31] MEDS: sertraline 50 mg Tablet PO (09:22)
[2025-03-31] MEDS: metoprolol succinate ER (24 HR) 50 mg Tablet PO (09:22)
[2025-03-31] MEDS: pantoprazole DR 40 mg Tablet PO (09:22)
[2025-03-31] MEDS: apixaban 5 mg Tablet PO ×2 (09:23→20:23)
--- NOTE | 2025-03-31 11:13 | USR_ITS ---
PROCEDURE INFORMATION: Exam: US Duplex Lower Extremity Veins, Bilateral Exam date and time: 03/31/2025 5:24 PM Age: 59 years old Clinical indication: Swelling (edema) of limb; Lower extremity, bilateral TECHNIQUE: Imaging protocol: Real-time duplex ultrasound of the bilateral extremities with 2-D arzate scale, color Doppler flow and spectral waveform analysis including responses to compression and other maneuvers (when performed) with image documentation. Complete exam focused on the lower extremity veins. COMPARISON: MR knee LT wo con* [id number] 01/20/2025 3:34 PM FINDINGS: Right deep veins: Unremarkable. The common femoral, femoral, proximal profunda femoral and popliteal veins are patent without thrombus. Normal Doppler waveforms. Normal compressibility and/or augmentation response. Left deep veins: Unremarkable. The common femoral, femoral, proximal profunda femoral and popliteal veins are patent without thrombus. Normal Doppler waveforms. Normal compressibility and/or augmentation response. Superficial veins: Greater saphenous veins at the saphenofemoral junctions are patent bilaterally without thrombus. Soft tissues: Unremarkable. US/CV venous duplex [facility] [id number] IMPRESSION: No sonographic evidence of deep venous thrombosis.
--- NOTE | 2025-03-31 11:38 | PHA.VACGOAL ---
Vancomycin Goal - Goal Vancomycin Goal:: 10-15 mg/L Vancomycin Indication:: SSTI - Therapy Current therapy:: Cefepime Day of therpy:: Day [1]of [] . Actual body weight (kg): 108.862 kg - Data Labs: WBC 7.06 10^3/uL (3.29-11.43) 03/30/25 22:38 RBC 4.78 10^6/uL (3.85-5.65) 03/30/25 22:38 Hgb 14.70 g/dL (11.27-16.99) 03/30/25 22:38 Hct 44.5 % (37-53) 03/30/25 22:38 MCV 93.1 fl (82-101) 03/30/25 22:38 MCH 30.8 pg (27-33) 03/30/25 22:38 MCHC 33.0 g/dL (30-55) 03/30/25 22:38 RDW 13.8 % (12.1-15.1) 03/30/25 22:38 Sodium 139 mmol/L (136-145) 03/30/25 22:38 Potassium 4.3 mmol/L (3.5-5.1) 03/30/25 22:38 Chloride 104 mmol/L (98-107) 03/30/25 22:38 Carbon Dioxide 25 mmol/L (22-29) 03/30/25 22:38 Anion Gap 14.3 (5-19) 03/30/25 22:38 BUN 15 mg/dL (6-20) 03/30/25 22:38 Creatinine 1.2 mg/dL (0.7-1.2) 03/30/25 22:38 GFR Calculation 62.4 mL/min (90-130) L 03/30/25 22:38 Treatment plan:: new consult Regimen:: New start vancomycin for cellulitis of right leg. Started on maintenance dose of 1250 mg q12h.
[2025-03-31] MEDS: cefepime 1,000 mg SDV 1000 MG IVP ×2 (12:12→23:10)
[2025-03-31] MEDS: vancomycin 1,250 MG/250 ML PIGGYBACK 166.67 MG IV (12:12)
[2025-03-31 12:38] LABS: Procalcitonin 0.07 ng/mL (0-0.5)
[2025-03-31 12:51] LABS: Erythrocyte Sedimentation Rate 26 mm/hr (0-10)
--- NOTE | 2025-03-31 16:18 | P.PN_ITS ---
Subjective 2 Subjective: Patient was seen this morning, he is resting comfortably, denies any fevers, no chills, no cough, denies any dog bites, cat scratches, no animal bites, no bug bites, does report walking barefoot, denies any foreign body sensation, does report neuropathy of bilateral feet, no history of diabetes Vitals/I&O/Wt Last Vital Signs Temp 97.4 F L 03/31/25 15:12 Pulse 85 03/31/25 15:12 Resp 16 03/31/25 15:12 BP 127/82 03/31/25 15:12 Pulse Ox 94 03/31/25 15:12 O2 Del Method Room Air 03/31/25 15:12 03/31/25 03/31/25 03/31/25 06:59 14:59 22:59 Intake Total 50 / 50 300 / 300 Output Total 1300 / 1300 Balance 50 / 50 -1000 / -1000 Weight last 48 hrs Weight 113.143 kg Weight 113.143 kg Weight 108.862 kg Physical Exam 2 Const: COMMON NORMALS: no acute distress and patient oriented x3 Resp: COMMON NORMALS: normal respiratory effort, No retractions, No use of accessory muscles and clear to auscultation bilaterally AUSCULTATION: clear to auscultation bilaterally Cardio: COMMON NORMALS: regular rate, regular rhythm, S1 normal heart sound present and S2 normal heart sound present RATE: regular rate RHYTHM: r egular rhythm HEART SOUNDS: S1 normal heart sound present and S2 normal heart sound present GI: COMMON NORMALS: Normal to inspection, nondistended, normoactive bowel sounds present and non-tender Extremity: COMMON NORMALS: no pedal edema Neuro: COMMON NORMALS: patient oriented x3 Psych: COMMON NORMALS: mental status grossly normal Skin: NARRATIVE SKIN EXAM: Extensive erythema, swelling, tenderness, right forefoot, dorsal aspect of right foot, extending to the anterior puga Have some erythema left anterior puga, left dorsum of the foot, Data 03/30/25 22:38 03/30/25 22:38 Micro: Microbiology 03/30/25 23:18 Blood Culture - Preliminary Blood SPECIMEN COLLECTED 03/30/25 22:38 Blood Culture - Preliminary Blood SPECIMEN COLLECTED A&P Assessment and plan (1) Cellulitis of leg, right: - Sed rate 26 - CRP 14, Pro-Bryson 0.07 - Continue vancomycin - Continue cefepime - Patient does report walking barefoot, no visible breaks in the skin, will consider imaging based on clinical progress (2) Sleep apnea: CPAP (3) Leg edema, right: BMP within normal limits, hold off on Lasix (4) Hypothyroidism (acquired): TSH elevated today check, T3, check T4 (5) Hypertension: Hold amlodipine due to leg swelling continue with lisinopril and metoprolol (6) Hypercholesteremia: Continue atorvastatin (7) Methamphetamine abuse, episodic: No murmur on examination, cardiac echo ordered (8) DDD (degenerative disc disease), lumbar: Chronic stable (9) Status post cervical spinal fusion: Chronic stable (10) History of blood clots: Continue Eliquis (11) Paroxysmal atrial fibrillation: Continue Eliquis and metoprolol. Treat sleep apnea. Obtain echocardiogram PDMP PDMP Reviewed: Not Reviewed Attestations 2 Medical Necessity Statement*: Patient requires hospitalization for cellulitis of right lower extremity Diagnoses Cellulitis of leg, right L03.115 Sleep apnea G47.30 Leg edema, right R60.0 Hypothyroidism (acquired) E03.9 Hypertension I10 Hypercholesteremia E78.00 Methamphetamine abuse, episodic F15.10 DDD (degenerative disc disease), lumbar M51.36 Status post cervical spinal fusion Z98.1 History of blood clots Z86.718 Paroxysmal atrial fibrillation I48.0
[2025-03-31 17:31] LABS: Estmated Average Glucose 126
[2025-03-31] MEDS: atorvastatin 40 mg Tablet PO (20:23)
[2025-03-31] MEDS: vancomycin 1,250 MG/250 ML PIGGYBACK 166 MG IV (23:10)
[2025-04-01] VITALS (7 sets, daily range): BP systolic 102–128; BP diastolic 64–87; PULSE 85–98; RESP 14–20; TEMP 36.6–36.9; O2SAT 91–95
[2025-04-01 03:18] LABS: Free T4 Free Thyroxine 0.94 ng/dL (0.82-1.77); T3 Free 2.7 PG/ML (2.0-4.4)
[2025-04-01 05:24] LABS: Basophils # 0.1 10^3/uL (0.0-0.1); Eosinophils # 0.2 10^3/uL (0.0-0.8); Eosinophils % 2.9 %; Hematocrit 45.3 % (37-53); Lymphocytes # 1.9 10^3/uL (0.8-4.8); Lymphocytes % 31.8 %; Mean Corpuscular HGB Conc 32.2 g/dL (30-55); Mean Corpuscular Hemoglobin 30.5 pg (27-33); Mean Corpuscular Volume 94.6 fl (82-101); Mean Platelet Volume 10.1 fL (7.4-10.4); Monocytes # 0.9 10^3/uL (0.2-0.9); Monocytes % 14.6 %; Neutrophils # 2.87 10^3/uL (1.8-7.7); Neutrophils % 49.2 %; Nucleated Red Blood Cells % 0 %; Platelet Count 302 10^3/cmm (157-399); Red Blood Count 4.79 10^6/uL (3.85-5.65); White Blood Count 5.84 10^3/uL (3.29-11.43)
--- NOTE | 2025-04-01 05:57 | USCV_ITS ---
Wyatt Hoffman Age: 60 Gender: M : 1965 Exam Date: 04/01/2025 06:29 Ordering Phys: Ronny Lee MD Technologist: Thompson Finn Exam Location: [facility] [place] Indication: a-fib, venous stasis and history of methamphetamine use BP: 107 / 65 HR: 73 Rhythm: Sinus Technical Quality: Adequate MEASUREMENTS (Male / Female) Normal Values 2D ECHO LV Diastolic Diameter PLAX 4.1 cm 4.2 - 5.9 / 3.9 - 5.3 cm IVS Diastolic Thickness 1.9 cm 0.6 - 1.0 / 0.6 - 0.9 cm IVS Systolic Thickness 1.9 cm LVPW Diastolic Thickness 1.5 cm 0.6 - 1.0 / 0.6 - 0.9 cm LVPW Systolic Thickness 2.1 cm LVOT Diameter 2.0 cm LV Ejection Fraction 2D Teich 69.3 % LV Ejection Fraction MOD 4C 56.5 % LV Ejection Fraction MOD 2C 52.8 % LV Ejection Fraction 2C AL 53.6 % LA Diameter 3.5 cm RA Systolic Volume 4C AL 23.9 ml RA Systolic Volume 4C MOD 22.0 ml LA Sys Volume AL 37.6 cm cubed LA Sys Volume Index AL 15.6 cm cubed/m squared Aorta at Sinotubular Diameter 3.0 cm IVC Diameter 1.9 cm M-MODE LA Ao Ratio MM 1.1 AV Cusp Separation MM 1.3 cm DOPPLER AV Peak Velocity 133.7 cm/s LVOT Peak Velocity 91.0 cm/s AV Area Cont Eq vti 2.2 cm squared AV Area Cont Eq pk 2.2 cm squared MV Peak Velocity 99.0 cm/s MV Area PHT 4.3 cm squared Mitral E to A Ratio 0.9 TR Peak Velocity 161.0 cm/s TR Peak Gradient 10.4 mmHg TR Mean Velocity 126.0 cm/s TR Mean Gradient 7.1 mmHg TR Velocity Time Integral 38.6 cm PV Peak Velocity 77.0 cm/s RV Ejection Time 0.3 s FINDINGS Left Ventricle Left ventricle is normal in size. LV systolic function is normal with EF of 55-60%. No regional wall motion abnormalities are seen. Grade 1 diastolic dysfunction Right Ventricle Normal in size and function Right Atrium Normal in size Left Atrium Normal in size Mitral Valve Structurally normal mitral valve. Mild mitral regurgitation. Aortic Valve Aortic valve is thickened. No significant stenosis or regurgitation. Tricuspid Valve Mild tricuspid regurgitation. Pulmonary artery systolic pressure is normal Pulmonic Valve Not well visualized Pericardium Normal Aorta Ascending aorta is dilated with diameter of 3.83cm IVC Appears to be normal CONCLUSIONS LV systolic function is normal with EF of 55-60% Grade 1 diastolic dysfunction Mild mitral regurgitation Mild tricuspid regurgitation Ascending aorta is dilated with diameter of 3.83cm No comparison studies are available. Neville Chopra MD (Electronically Signed) Final Date: 02 April 2025 10:27 S
[2025-04-01 05:59] LABS: Anion Gap 14.4 (5-19); Blood Urea Nitrogen 15 mg/dL (6-20); Calcium 8.9 mg/dL (8.5-10.5); Carbon Dioxide 24 mmol/L (22-29); Chloride 102 mmol/L (98-107); Creatinine Clr Calc Pharmacy 114.2959; Glomerular Filtration Rate 86.7 mL/min (90-130); Glucose 114 mg/dL (65-115); Osmolality Calculated 284 mOsm/kg (285-295); Potassium 4.4 mmol/L (3.5-5.1); Sodium 136 mmol/L (136-145)
--- NOTE | 2025-04-01 10:48 | PC.CHAP ---
Pastoral Care Encounter/Spiritual Assessment Type of Contact [] Declined director electronics visit [] Patient/Family/Request visit [] Outpatient visit [] Follow-up visit [] Physician referral [] Code/Alert [x] Routine visit [] Staff referral [] Actively dying [] Patient sleeping [] Family support [] [] Out of room [] Palliative care [] [x] Receiving care in room [] Pre-surgical visit [] Trauma [] Long length of stay [] ICU visit [] Other: Relational/Emotional Strength [] Patient feels connected with others/family/visitors/staff [] Distress [] Loneliness/isolation [] Abandonment Spirituality of Patient [] Person of Virginie [] Attends Buddhism of their Virginie [] Believes in Prayer [] Reads Bible or Buddhist materials [] There are Spiritual issues to be addressed Light Fixture Servicer Interventions [] Prayer [] Active listening [] Non-anxious presence [] Spiritual/emotional support [] Crisis/trauma care [] Spiritual counseling [] Bereavement support [] Provided bereavement packet [] Provided Bible/devotional materials [] Provided toy/stuffed animal, coloring book to patient or family member [] Provided Communion [] Anointing/[place] [] Salvation [] Completed spiritual assessment [] Other: Impact on Illness or Injury [] Angry [] Fearful [] Anxious [] Often cries [] Exhaustion [] Unable to work [] Unable to attend orthodoxy [] Unable to walk/stand [] Unable to read [] Unable to drive [] Unable to eat/drink [] Unable to sleep [] Unable to be with family [] Patient intubated [] Other: Summary Time spent with patient
[2025-04-01] MEDS: metoprolol succinate ER (24 HR) 50 mg Tablet PO (10:56)
[2025-04-01] MEDS: potassium chloride ER 20 mEq Tablet PO (10:57)
[2025-04-01] MEDS: apixaban 5 mg Tablet PO ×2 (10:57→20:09)
[2025-04-01] MEDS: pantoprazole DR 40 mg Tablet PO (10:57)
[2025-04-01] MEDS: sertraline 50 mg Tablet PO (10:57)
[2025-04-01] MEDS: lisinopril 20 mg Tablet PO (10:57)
[2025-04-01] MEDS: vancomycin 1,250 MG/250 ML PIGGYBACK 166 MG IV ×2 (12:26→23:57)
[2025-04-01] MEDS: cefepime 1,000 mg SDV 1000 MG IVP ×2 (12:26→23:07)
--- NOTE | 2025-04-01 14:56 | P.PN_ITS ---
Subjective 2 Subjective: Patient was seen this morning, currently alert oriented x 3, following all commands, continues to complain of tenderness in bilateral lower extremities although improved, no fevers, chills Vitals/I&O/Wt Last Vital Signs Temp 98.3 F 04/01/25 11:18 Pulse 90 04/01/25 11:18 Resp 15 04/01/25 11:18 BP 128/87 04/01/25 11:18 Pulse Ox 93 04/01/25 11:18 O2 Del Method Room Air 04/01/25 11:18 03/31/25 04/01/25 04/01/25 22:59 06:59 14:59 Intake Total 240 / 540 970 / 1510 480 / 480 Output Total 525 / 1825 600 / 2425 Balance -285 / -1285 370 / -915 480 / 480 Weight last 48 hrs Weight 112.854 kg Weight 113.143 kg Weight 113.143 kg Weight 108.862 kg Physical Exam 2 Const: COMMON NORMALS: no acute distress and patient oriented x3 Neck/C-Spine: COMMON NORMALS: no JVD Resp: COMMON NORMALS: normal respiratory effort, No retractions, No use of accessory muscles and clear to auscultation bilaterally AUSCULTATION: clear to auscultation bilaterally Cardio: COMMON NORMALS: no JVD, regular rate, regular rhythm, S1 normal heart sound present and S2 normal heart sound present RATE: regular rate RHYTHM: regular rhythm HEART SOUNDS: S1 normal heart sound present and S2 normal heart sound present GI: COMMON NORMALS: Normal to inspection, nondistended, normoactive bowel sounds present, Soft to palpation and non-tender PALPATION: Yes Soft to palpation Extremity: COMMON NORMALS: no pedal edema Neuro: COMMON NORMALS: patient oriented x3 Psych: COMMON NORMALS: mental status grossly normal Skin: NARRATIVE SKIN EXAM: Erythema, swelling, tenderness improving bilateral extremities Data 04/01/25 04:31 04/01/25 04:31 Micro: Microbiology 03/30/25 23:18 Blood Culture - Preliminary Blood NEGATIVE TO DATE 03/30/25 22:38 Blood Culture - Preliminary Blood NEGATIVE TO DATE A&P Assessment and plan (1) Cellulitis of leg, right: - Sed rate 26 - CRP 14, Pro-Bryson 0.07 - Continue vancomycin - Continue cefepime - Patient does report walking barefoot, no visible breaks in the skin, will consider imaging based on clinical progress (2) Sleep apnea: CPAP (3) Leg edema, right: BMP within normal limits, hold off on Lasix (4) Hypothyroidism (acquired): TSH elevated today check, T3, check T4 (5) Hypertension: Hold amlodipine due to leg swelling continue with lisinopril and metoprolol (6) Hypercholesteremia: Continue atorvastatin (7) Methamphetamine abuse, episodic: No murmur on examination, cardiac echo ordered (8) DDD (degenerative disc disease), lumbar: Chronic stable (9) Status post cervical spinal fusion: Chronic stable (10) History of blood clots: Continue Eliquis (11) Paroxysmal atrial fibrillation: Continue Eliquis and metoprolol. Treat sleep apnea. Obtain echocardiogram PDMP PDMP Reviewed: Not Reviewed Attestations 2 Medical Necessity Statement*: Patient requires hospitalization for cellulitis bilateral extremities Diagnoses Cellulitis of leg, right L03.115 Sleep apnea G47.30 Leg edema, right R60.0 Hypothyroidism (acquired) E03.9 Hypertension I10 Hypercholesteremia E78.00 Methamphetamine abuse, episodic F15.10 DDD (degenerative disc disease), lumbar M51.36 Status post cervical spinal fusion Z98.1 History of blood clots Z86.718 Paroxysmal atrial fibrillation I48.0
[2025-04-01] MEDS: atorvastatin 40 mg Tablet PO (20:09)
[2025-04-01 23:33] LABS: Vancomycin Trough 10.9 ug/mL (10-15)
[2025-04-01] MEDS: cyclobenzaprine 10 mg Tablet 5 MG PO (23:57)
[2025-04-02 03:53] VITALS: BP 134/81; PULSE 88; RESP 18; TEMP 36.6; O2SAT 92
[2025-04-02 05:39] LABS: Basophils # 0.1 10^3/uL (0.0-0.1); Basophils % 1.3 %; Eosinophils # 0.1 10^3/uL (0.0-0.8); Eosinophils % 2.3 %; Hematocrit 47.2 % (37-53); Lymphocytes # 1.9 10^3/uL (0.8-4.8); Lymphocytes % 31.7 %; Mean Corpuscular HGB Conc 32.4 g/dL (30-55); Mean Corpuscular Hemoglobin 30.2 pg (27-33); Mean Corpuscular Volume 93.1 fl (82-101); Mean Platelet Volume 9.9 fL (7.4-10.4); Monocytes # 0.8 10^3/uL (0.2-0.9); Neutrophils # 3.11 10^3/uL (1.8-7.7); Neutrophils % 51.4 %; Nucleated Red Blood Cells % 0 %; Platelet Count 340 10^3/cmm (157-399); Red Blood Count 5.07 10^6/uL (3.85-5.65); Red Cell Distribution Width 13.8 % (12.1-15.1); White Blood Count 6.06 10^3/uL (3.29-11.43)
[2025-04-02 06:13] LABS: Blood Urea Nitrogen 16 mg/dL (6-20); Carbon Dioxide 22 mmol/L (22-29); Creatinine Clr Calc Pharmacy 127.8078; Glomerular Filtration Rate 99.3 mL/min (90-130); Glucose 104 mg/dL (65-115)
[2025-04-02 06:28] LABS: Anion Gap 15.4 (5-19); Chloride 103 mmol/L (98-107); Osmolality Calculated 283 mOsm/kg (285-295); Potassium 4.4 mmol/L (3.5-5.1); Sodium 136 mmol/L (136-145)
[2025-04-02 07:37] VITALS: BP 114/72; PULSE 93; RESP 17; TEMP 36.7; O2SAT 93
--- NOTE | 2025-04-02 08:47 | USR_ITS ---
PROCEDURE INFORMATION: Exam: US Duplex Bilateral Lower Extremity Arteries Exam date and time: 04/02/2025 11:49 AM Age: 60 years old Clinical indication: Pain; Leg, upper and leg, lower; Bilateral TECHNIQUE: Imaging protocol: Real-time ultrasound scan of the arteries of the bilateral lower extremities with 2-D arzate scale, color Doppler flow and spectral waveform analysis. Images documented and saved. COMPARISON: [place] [id number] 03/31/2025 5:24 PM FINDINGS: Right common femoral artery: No occlusion or significant stenosis. Normal waveform. Right superficial femoral artery: No occlusion or significant stenosis. Normal waveform. Right popliteal artery: No occlusion or significant stenosis. Normal waveform. Right calf/foot arteries: No occlusion or significant stenosis in the visualized arteries. Normal waveforms. Dorsalis pedis artery is patent. Left common femoral artery: No occlusion or significant stenosis. Normal waveform. Left superficial femoral artery: No occlusion or significant stenosis. Normal waveform. Left popliteal artery: No occlusion or significant stenosis. Normal waveform. Left calf/foot arteries: No occlusion or significant stenosis in the visualized arteries. Normal waveforms. Dorsalis pedis artery is patent. Other findings: Right ANTONIO 0.9. Left ANTONIO 0.8. US/[place] [id number] IMPRESSION: No stenosis or occlusion.
[2025-04-02] MEDS: metoprolol succinate ER (24 HR) 50 mg Tablet PO (09:03)
[2025-04-02] MEDS: pantoprazole DR 40 mg Tablet PO (09:03)
[2025-04-02] MEDS: sertraline 50 mg Tablet PO (09:03)
[2025-04-02] MEDS: lisinopril 20 mg Tablet PO (09:03)
[2025-04-02] MEDS: potassium chloride ER 20 mEq Tablet PO (09:03)
[2025-04-02] MEDS: apixaban 5 mg Tablet PO (09:03)
[2025-04-02] MEDS: gabapentin 100 mg Capsule PO (09:03)
--- NOTE | 2025-04-02 10:31 | NUR.SHIFT ---
Medications called into [facility] at this time. Patient notified
[2025-04-02 11:54] VITALS: BP 103/73; PULSE 101; RESP 17; TEMP 36.7; O2SAT 94
[2025-04-02] MEDS: cefepime 1,000 mg SDV 1000 MG IVP (13:22)
--- NOTE | 2025-04-02 14:49 | P.DS_ITS ---
Discharge Providers Date of Admission: 03/31/25 03:38 Date of Discharge: April 02, 2025 Attending Provider at Admission: Ronny Lee MD Attending Provider at Discharge: Keivn Busby MD Primary Care Provider: Matteo French MD Diagnoses at Discharge Discharge Diagnosis (1) Cellulitis of leg, right: Status: Acute (2) Sleep apnea: Status: Acute (3) Leg edema, right: Status: Acute (4) Hypothyroidism (acquired): Status: Acute (5) Hypertension: Status: Acute (6) Hypercholesteremia: Status: Acute (7) Methamphetamine abuse, episodic: Status: Acute (8) DDD (degenerative disc disease), lumbar: Status: Acute (9) Status post cervical spinal fusion: Status: Acute (10) History of blood clots: Status: Acute (11) Paroxysmal atrial fibrillation: Status: Acute Reason for Visit Reason for Visit: heat swelling pain both feet Hospital Course Hospital Course This is a 57-year-old male with a past medical history of methamphetamine abuse, history of neuropathy in his feet, no history of diabetes, history of DVT on Eliquis, who presents to [facility] cellulitis of bilateral extremities Patient was admitted to [facility] for cellulitis bilateral lower extremities, received broad-spectrum antibiotic therapy, overall clinically improved, will be discharged on p.o. antibiotics He did report burning sensation in bilateral lower extremities, no history of diabetes, will discharge him on low-dose gabapentin 100 mg 3 times daily, discussed with him to monitor for lightheadedness/dizziness, do not drive or operate machinery or drink while taking gabapentin A1c 6.0, patient is prediabetic please follow-up with primary care For ascending aortic dilatation follow-up with cardiology Physical Exam Const: COMMON NORMALS: no acute distress and patient oriented x3 Resp: COMMON NORMALS: normal respiratory effort, No retractions, No use of accessory muscles and clear to auscultation bilaterally AUSCULTATION: clear to auscultation bilaterally Cardio: COMMON NORMALS: regular rate, regular rhythm, S1 normal heart sound present and S2 normal heart sound present RATE: regular rate RHYTHM: regul ar rhythm HEART SOUNDS: S1 normal heart sound present and S2 normal heart sound present GI: COMMON NORMALS: Normal to inspection, nondistended, normoactive bowel sounds present and non-tender Extremity: COMMON NORMALS: no pedal edema Neuro: COMMON NORMALS: patient oriented x3 Psych: COMMON NORMALS: mental status grossly normal Discharge Data Studies Completed and Pending Completed Studies During Hospitalization Category Date Time Status XR chest 1V portable [id number] Stat Exams 03/30/25 22:10 Completed CV. echo complete* [id number] Routine Ultrasound 04/01/25 05:57 Completed US arterial duplex lower extremity bilat [CV arterial Ultrasound 04/02/25 08:47 [place] [id number]] Stat US venous duplex lower extremity bilat [CV venous Ultrasound 03/31/25 11:13 [place] [id number]] Routine Pending at discharge Category Date Time Status Basic Metabolic Panel AM LABS Lab 04/03/25 04:00 Ordered Blood Culture Stat Lab 03/30/25 23:18 Results Complete Blood Count w/Auto AM LABS Lab 04/03/25 04:00 Ordered Radiology Impressions Chest X-Ray 03/30/25 22:10 IMPRESSION: 1. Cardiomegaly. 2. Bilateral hilar to lower lobe subsegmental atelectasis versus minimal infiltrate. Venous Duplex 03/31/25 11:13 IMPRESSION: No sonographic evidence of deep venous thrombosis. Duplex Scan Lower Extremity Artery 04/02/25 08:47 IMPRESSION: No stenosis or occlusion. Laboratory Results WBC 6.06 10^3/uL (3.29-11.43) 04/02/25 04:35 RBC 5.07 10^6/uL (3.85-5.65) 04/02/25 04:35 Hgb 15.30 g/dL (11.27-16.99) 04/02/25 04:35 Hct 47.2 % (37-53) 04/02/25 04:35 MCV 93.1 fl (82-101) 04/02/25 04:35 MCH 30.2 pg (27-33) 04/02/25 04:35 MCHC 32.4 g/dL (30-55) 04/02/25 04:35 RDW 13.8 % (12.1-15.1) 04/02/25 04:35 Plt Count 340 10^3/cmm (157-399) 04/02/25 04:35 MPV 9.9 fL (7.4-10.4) 04/02/25 04:35 Neut % (Auto) 51.4 % 04/02/25 04:35 Lymph % (Auto) 31.7 % 04/02/25 04:35 Randall % (Auto) 13.0 % 04/02/25 04:35 Eos % (Auto) 2.3 % 04/02/25 04:35 Baso % (Auto) 1.3 % 04/02/25 04:35 Neut # (Auto) 3.11 10^3/uL (1.8-7.7) 04/02/25 04:35 Lymph # (Auto) 1.9 10^3/uL (0.8-4.8) 04/02/25 04:35 Randall # (Auto) 0.8 10^3/uL (0.2-0.9) 04/02/25 04:35 Eos # (Auto) 0.1 10^3/uL (0.0-0.8) 04/02/25 04:35 Baso # (Auto) 0.1 10^3/uL (0.0-0.1) 04/02/25 04:35 Nucleated RBC % (auto) 0 % 04/02/25 04:35 Nucleated RBCs # 0.0 /100WBC 04/02/25 04:35 ESR 26 mm/hr (0-10) H 03/31/25 12:46 Sodium 136 mmol/L (136-145) 04/02/25 04:35 Potassium 4.4 mmol/L (3.5-5.1) 04/02/25 04:35 Chloride 103 mmol/L (98-107) 04/02/25 04:35 Carbon Dioxide 22 mmol/L (22-29) 04/02/25 04:35 Anion Gap 15.4 (5-19) 04/02/25 04:35 BUN 16 mg/dL (6-20) 04/02/25 04:35 Creatinine 0.8 mg/dL (0.7-1.2) 04/02/25 04:35 GFR Calculation 99.3 mL/min (90-130) 04/02/25 04:35 Glucose 104 mg/dL (65-115) 04/02/25 04:35 Estimat Average Glucose 126 03/30/25 22:38 Hemoglobin A1c 6.0 % (4.0-6.0) 03/30/25 22:38 Calculated Osmolality 283 mOsm/kg (285-295) L 04/02/25 04:35 Lactic Acid 1.1 mmol/L (0.5-2.2) 03/30/25 22:38 Calcium 9.0 mg/dL (8.5-10.5) 04/02/25 04:35 Total Bilirubin 0.4 mg/dL (0.15-1.2) 03/30/25 22:38 AST 42 U/L (0-40) H 03/30/25 22:38 ALT 32 U/L (0-41) 03/30/25 22:38 Alkaline Phosphatase 72 U/L (40-130) 03/30/25 22:38 Troponin T Baseline 13 ng/L (0-15) 03/30/25 22:38 Troponin T 120 Minute 10.61 ng/L (0-15) 03/31/25 00:26 Delta Troponin T -2.39 ABS# (0-10) L 03/31/25 00:26 Troponin T Hi Sens 6Hr 11.90 ng/L (0-15) 03/31/25 04:19 Troponin T Hi Sens 6Hr Delta -1.10 ng/L (0-12) L 03/31/25 04:19 C-Reactive Protein 14.0 mg/L (0.0-4.9) H 03/31/25 04:19 NT-Pro-B Natriuret Pep 115 pg/mL (0-125) 03/30/25 22:38 Total Protein 7.0 g/dL (6.6-8.7) 03/30/25 22:38 Albumin 3.8 g/dL (3.5-5.2) 03/30/25 22:38 Globulin 3.2 g/dL (1.3-4.6) 03/30/25 22:38 Procalcitonin 0.07 ng/mL (0-0.5) 03/31/25 04:19 Free T4 0.94 ng/dL (0.82-1.77) 03/31/25 04:19 Free T3 2.7 PG/ML (2.0-4.4) 03/31/25 04:19 Vancomycin Trough 10.9 ug/mL (10-15) 04/01/25 23:11 Vitals Last Vital Signs Temp 98.1 F 04/02/25 11:54 Pulse 101 H 04/02/25 11:54 Resp 17 04/02/25 11:54 BP 103/73 04/02/25 11:54 Pulse Ox 94 04/02/25 11:54 O2 Del Method Room Air 04/02/25 11:54 Discharge Plan Discharge Patient Disposition: Home Condition: Stable Prescriptions: New gabapentin 100 mg Capsule 100 mg PO Q8H 7 Days Qty: 21 0RF doxycycline hyclate 100 mg tablet 100 mg PO BID 7 Days Qty: 14 0RF amoxicillin-pot clavulanate 875-125 mg tablet 1 tab PO BID 7 Days Qty: 14 0RF Continued atorvastatin 40 mg tablet 40 mg PO DAILY Qty: 90 1RF lisinopril 20 mg tablet 20 mg PO DAILY Qty: 90 1RF hydroxyzine HCl 50 mg tablet 50 mg PO BID PRN (Reason: anxety) Qty: 60 1RF oxycodone-acetaminophen 10-325 mg tablet 1 tab PO TID PRN (Reason: pain) 30 Days Qty: 90 0RF sertraline [Zoloft] 50 mg tablet 50 mg PO DAILY Qty: 30 0RF mupirocin [Centany] 2 % ointment 1 applic topical BID Qty: 22 0RF (DME) eagle j collar See Rx Instructions .Route .MEDSUPPLY Qty: 1 0RF Rx Instructions: As directed (DME) miscellaneous medical supply Misc See Rx Instructions .Route Qty: 1 0RF Rx Instructions: As directed (DME) [place] J collar See Rx Instructions .Route .MEDSUPPLY Qty: 1 0RF Rx Instructions: As directed (DME) soft cervical collar See Rx Instructions .Route .MEDSUPPLY Qty: 1 0RF Rx Instructions: As directed Eliquis 5 mg tablet 5 mg PO BID Qty: 180 2RF (DME) compression hose (thigh) See Rx Instructions .Route .MEDSUPPLY Qty: 1 0RF Rx Instructions: As directed amlodipine 5 mg tablet 5 mg PO DAILY Qty: 90 1RF metoprolol succinate 50 mg tablet extended release 24 hr 50 mg PO DAILY Qty: 90 1RF pantoprazole [Protonix] 20 mg tablet,delayed release (DR/EC) 20 mg PO DAILY Qty: 60 0RF cyclobenzaprine 10 mg tablet 10 mg PO TID PRN (Reason: muscle spasm) Qty: 90 1RF Discontinued sulfamethoxazole-trimethoprim [Bactrim DS] 800-160 mg tablet 1 tab PO BID 10 Days Qty: 20 0RF Discharge Orders: Discharge Order (Routine); Ordered 04/02/25 Ordered By: Kevin Busby Referrals: Matteo French MD [Primary Care Provider, [facility]] - 7-10 days Referral Note: Please call your primary care provider tomorrow to get a follow up appointment in 7-10 days. Neville Chopra M.D [Physician, Cardiology] - 1 month Referral Note: Ascending aortic dilatation Discharge Diet: Cardiac Discharge Activity: Resume usual activity Patient Instructions: Doxycycline (By mouth), Amoxicillin/Clavulanate Potassium (By mouth), Gabapentin (By mouth), A-fib (Atrial Fibrillation) (GEN), Cellulitis (GEN), Hypothyroidism (GEN), Opioid Safety Activity Restrictions/Additional Instructions: - Please take antibiotics as prescribed - Please abstain from drug use - Follow-up with primary care provider Discharge Attestations Time Spent in Discharge Care*: greater than 30 min Quality Metrics Clinical Quality Measures [ No reported AMI, CVA or VTE this stay] Coding Level of Care Code 23828 Total time (in minutes) for Discharge: 45 Diagnoses Cellulitis of leg, right L03.115 Sleep apnea G47.30 Leg edema, right R60.0 Hypothyroidism (acquired) E03.9 Hypertension I10 Hypercholesteremia E78.00 Methamphetamine abuse, episodic F15.10 DDD (degenerative disc disease), lumbar M51.36 Status post cervical spinal fusion Z98.1 History of blood clots Z86.718 Paroxysmal atrial fibrillation I48.0
--- NOTE | 2025-04-02 15:14 | PC.NURSE ---
Discharge paperwork discussed with patient. All questions were answered. IV line was previously removed. Patient was taken to exit via wheelchair, escorted by SUNDEEP Wiggins at 1345.
[2025-04-02 15:16] VITALS: BP 103/73; PULSE 101; RESP 17; TEMP 36.7; O2SAT 94
== END 2025-04-02 13:45 | disposition home or self-care (01) | DRG 603 ==
LOC: ER 03-31 05:08 → ER IP 03-31 05:11 → MEDSURG 03-31 12:12
PROVIDERS: Admitting Provider Internal Medicine; Emergency Provider Student in an Organized Health Care Education/Training Program; PCP Family Medicine; Visit Provider Family Medicine
DX: L03.115 Cellulitis of right lower limb (principal); G47.30 Sleep apnea, unspecified; E03.9 Hypothyroidism, unspecified; I10 Essential (primary) hypertension; E78.00 Pure hypercholesterolemia, unspecified; F15.10 Other stimulant abuse, uncomplicated; M51.369 Other intervertebral disc degeneration, lumbar region without mention of lumbar back pain or lower extremity pain; I48.0 Paroxysmal atrial fibrillation; G62.9 Polyneuropathy, unspecified; R73.03 Prediabetes; I77.819 Aortic ectasia, unspecified site; M32.9 Systemic lupus erythematosus, unspecified; Z79.01 Long term (current) use of anticoagulants; Z79.891 Long term (current) use of opiate analgesic; Z98.1 Arthrodesis status; Z86.718 Personal history of other venous thrombosis and embolism; Z87.820 Personal history of traumatic brain injury
CPT/HCPCS: 36415; 71045; 80048; 80053; 80202; 83036; 83605; 83880; 84145; 84439; 84481; 84484; 85025; 85651; 86140; 87040; 93005; 93306; 93925; 93970; 94660; 94664; 96365; 96367; 96375; 99285; J0692; J3370; J3490; J9999

== ENCOUNTER 2025-06-05 19:55 | Observation (INO) | payer MEDICARE, MEDICAID, SELFPAY ==
[2025-06-05 19:58] VITALS: BP 126/86; PULSE 126; RESP 18; TEMP 37.1; O2SAT 96
--- OUTSIDE RECORDS SUMMARY | 2025-06-05 20:01 | XMS_ITS | Clinical Summary ---
Author Organization [facility] Address [address] [place] [address] Phone Care Team Providers Care Retail Brand Ambassador Name Role Phone Unavailable Primary Care Provider Unavailabl e Allergies No known active allergies Medications amLODIPine (NORVASC) 5 mg tablet Take 5 mg by mouth daily. Active atorvastatin (LIPITOR) 40 mg tablet Take 40 mg by mouth daily. Active apixaban (Eliquis) 5 mg tablet Take 5 mg by mouth 2 times daily. Active lisinopriL (PRINIVIL) 20 mg tablet Take 20 mg by mouth daily. Active metoprolol tartrate (LOPRESSOR) 50 mg tablet Take 50 mg by mouth 2 times daily. Active omeprazole (PriLOSEC) 20 mg Capsule, Delayed Release(E.C.) Take 20 mg by mouth daily. Active HYDROCODONE-ACET AMINOPHEN ORAL Take by mouth. 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 Temperature 36.1 C (96.9 F) 12/02/2023 3:04 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 Respiratory Rate 16 12/02/2023 3:04 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 Oxygen Saturation 94% 12/02/2023 3:04 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 Inhaled Oxygen Concentration - - Weight 104.3 kg (230 lb) 12/02/2023 1:29 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 Height 180.3 cm (5' 11 ) 12/02/2023 1:29 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 Body Mass Index 32.08 12/02/2023 1:29 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 Plan of Treatment Health Maintenance Due Date Last Done Comments DTAP/TDAP/TD VACCINES (1 - Tdap) 1986 HEPATITIS B VACCINES (1 of 3 - 19+ 3-dose series) 03/04 COLORECTAL SCREENING 2012 Colorectal Cancer Screening 2012 FIT-DNA Q 3 years 2012 FIT/FOBT Q 1 year 2012 Flex Sig/CT Colonography Q 5 years 2012 ZOSTER VACCINE (1 of 2) 2017 INFLUENZA VACCINE (#1) 2025 Medical Devices Implanted Type Area Executive Director Of Marketing Device Identifier Shelf Expiration Date Model / Serial / Lot Lens Iol [employer]ecnis Eyhance 21.0 [id number] - [id number] Implanted:Qty: 1 on 10/07/2023 by Ace Erwin MD at [facility] Lens Left: Eye [employer] 07/28/2026 [id number] / [id number] / Lens Iol Tecnis Eyhance 21.0 [id number] - [id number] Implanted:Qty: 1 on 12/02/2023 by Ace Erwin MD at [facility] Lens Right: Eye [employer] 06/28/2026 [id number] / [id number] / Insurance [facility] [employer] [place]ID [place]
--- NOTE | 2025-06-05 20:05 | CTR_ITS ---
PROCEDURE INFORMATION: Exam: CT Abdomen And Pelvis Without Contrast Exam date and time: 06/05/2025 9:10 PM Age: 60 years old Clinical indication: Abdominal pain; Flank; Left; Additional info: Flank pain TECHNIQUE: Imaging protocol: Computed tomography of the abdomen and pelvis without contrast. Radiation optimization: All CT scans at this facility use at least one of these dose optimization techniques: automated exposure control; mA and/or kV adjustment per patient size (includes targeted exams where dose is matched to clinical indication); or iterative reconstruction. COMPARISON: CT pelvis w con* [id number] 08/06/2023 4:52 PM RADIATION DOSE METRICS: Total DLP (mGy-cm): 1169.73 FINDINGS: Lungs: Mild bilateral lower lung scarring/fibrosis. Heart: Heart normal in size. Severe calcified coronary artery atherosclerosis. No large volume pericardial effusion. Liver: Normal. No mass. Gallbladder and biliary ducts: Normal. No calcified stones. No ductal dilation. Pancreas: Normal. No ductal dilation. Spleen: Normal. No splenomegaly. Adrenal glands: Normal. No mass. Kidneys and ureters: Exophytic hemorrhagic cyst at the superior left kidney measuring 1.9 cm. Numerous nonobstructing stones within the bilateral kidneys, largest in the lower pole collecting system of the left kidney measuring 7 mm. No hydronephrosis or obstructive urolithiasis. Stomach and bowel: Small bowel normal in caliber. No wall thickening or focal adjacent inflammation. Moderate diverticulosis of the descending colon and sigmoid colon. Appendix: No evidence of appendicitis. Intraperitoneal space: Unremarkable. No free air. No significant fluid collection. Vasculature: Mild atherosclerotic calcification of the aorta and major branch vessels without aneurysm. Lymph nodes: Unremarkable. No enlarged lymph nodes. Urinary bladder: Circumferential wall thickening of the urinary bladder with adjacent inflammation. Reproductive: Unremarkable as visualized. Bones/joints: Moderate thoracolumbar spondylosis. Prior laminectomies at L4 and L5. No acute osseous abnormality. Soft tissues: Unremarkable. CT/CT kidney stone [id number] IMPRESSION: 1. Circumferential wall thickening of the urinary bladder with adjacent inflammation, consistent with cystitis. 2. Bilateral nonobstructing nephrolithiasis. No hydronephrosis or obstructing urolithiasis. 3. Moderate diverticulosis of the descending colon and sigmoid colon. COMMENTS: Consistent with the [place] [employer]'s Incidental Findings Committee white paper (J Am Adam Radiol 2018): Any incidental renal lesion less than 1 cm or classified as too small to characterize, or any incidental cystic renal lesion characterized as simple-appearing, is likely benign. No follow-up imaging is recommended for these lesions per consensus recommendations based on imaging criteria.
--- NOTE | 2025-06-05 20:06 | ED_ITS ---
HPI - Abdominal Pain 2 General: Chief Complaint: Abdominal Pain Stated Complaint: Possible Kidney Pain Time Seen by Provider: 06/05/25 20:03 Source: patient Mode of arrival: ambulatory Limitations: no limitations History of Present Illness: 60-year-old male states he has been havi ng bilateral lower back and flank pain has been going on for the last 3 days. He denies any abdominal pain to me. He states the pains been a sharp pain across his back states he feels that he is having pain into his kidneys. He denies any vomiting or diarrhea has had some foul-smelling urine. Associated Symptoms: Denies chills, diarrhea, fever(s), nausea and vomiting Related Data Home Medications ?Medication ?Instructions ?Recorded ?Confirmed esomeprazole magnesium 40 mg 40 mg PO DAILY 06/06/25 0 06/06/25 capsule,delayed release Previous Rx's ?Medication ?Instructions ?Recorded apixaban 5 mg tablet (Eliquis) 5 mg PO BID #180 tabs 0 05/04/24 lisinopril 20 mg tablet 20 mg PO DAILY #90 tabs 04/26 amlodipine 5 mg tablet 5 mg PO DAILY #90 tabs 01/23 metoprolol succinate 50 mg 50 mg PO DAILY #90 tabs 12/27 tablet,extended release 24 hr oxycodone-acetaminophen 10 mg-325 1 tab PO TID PRN hugo n 30 days #90 03/23/25 mg tablet tabs mupirocin 2 % topical ointment 1 applic topical BID #2 2 grams 03/28/25 (Centany) pantoprazole 20 mg tablet,delayed 20 mg PO DAILY #60 t abs 04/28/25 release (Protonix) atorvastatin 40 mg tablet See Rx Instructions .Route 0 05/19/25 .COMPLEX #90 tabs cyclobenzaprine 10 mg tablet See Rx Instructions .Rout e 05/22/25 .COMPLEX #90 tabs cephalexin 500 mg capsule 500 mg PO TID 7 days #21 cap s 06/05/25 naproxen 500 mg tablet (Naprosyn) 500 mg PO BID PRN pa in #20 tabs 06/05/25 sulfamethoxazole 400 1 tab PO BID 7 days #14 tabs 06/07/25 mg-trimethoprim 80 mg tablet (Bactrim) Allergies Allergy/AdvReac Type Severity Reaction Status Date / Time No Known Allergies Allergy Verified 06/05/25 20:01 Review of Systems 2 Const: Denies: fever(s), chills, body aches or change in appetite ENMT: Denies: throat pain or dental pain Card: Denies: chest pain Resp: Denies: dyspnea GI: Denies: abdominal pain, nausea, vomiting or diarrhea Musc: Reports: back pain; Denies: neck pain Skin/Breast: Denies: rash Neuro: Denies: headache(s) PFSH ED 2 PFSH: Medical History Paroxysmal atrial fibrillation Methamphetamine abuse, episodic Leg edema, right Sleep apnea Left knee pain AMBROSE positive Hypertension Hypercholesteremia Lupus History of blood clots Heartburn History of traumatic head injury Surgical History Hx of cervical spine surgery Hx of tracheostomy Hx of colonoscopy 2019 History of esophagogastroduodenoscopy (EGD) Family History Sister Cancer lung, hodgkins lymphoma Other CAD (coronary artery disease) Chronic kidney disease (CKD) Hyperlipidemia Hypertension Lung disease Stroke Denies family history of Diabetes Clotting disorder Dementia Psychiatric illness Anesthesia complication Bleeding disorder Social History Smoking and tobacco/nicotine status: never used tobacco/nicotine Alcohol intake: never Substance/Drug Use: current Other substance/drug use details: Intermittent last was 5 weeks before 03/31/2025 Additional social history: Patient wants full code as discussed with Ronny Lee MD 03/31/2025 Lives independently: Yes Current occupational status: unemployed and disabled 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 Special lena needs: No Agree to transfusion: Yes Physical Exam 2 Const: COMMON NORMALS: no acute distress, patient oriented x3 and healthy appearing HENMT: COMMON NORMALS: normocephalic and atraumatic HEAD & SCALP: n ormocephalic and atraumatic Eye: COMMON NORMALS: conjunctivae normal CONJUNCTIVA: Yes conjunctivae normal Neck/C-Spine: COMMON NORMALS: full ROM and supple Chest: COMMONS NORMALS: normal inspection of the chest Resp: COMMON NORMALS: normal respiratory effort, No retractions, No use of accessory muscles and clear to auscultation bilaterally AUSCULTATION: clear to auscultation bilaterally Cardio: COMMON NORMALS: regular rate, regular rhythm and No murmurs present (Cardio) RATE: regular rate RHYTHM: regular rhythm GI: COMMON NORMALS: Normal to inspection, nondistended, normoactive bowel sounds present, Soft to palpation, non-tender and no masses PALPATION: Yes Soft to palpation Back/Pelvis: OTHER: Tenderness over bilateral lower back Extremity: COMMON NORMALS: normal to inspection and full ROM Neuro: COMMON NORMALS: patient oriented x3, moves all extremities and no focal motor deficits Psych: COMMON NORMALS: mental status grossly normal, Normal thought process present and cooperative THOUGHT PROCESS: Normal thought process present Skin: COMMON NORMALS: no rashes or lesions noted and no wounds GENERAL SKIN EXAM: no rashes or lesions noted Course 2 Vital Signs: Vital signs: Vital Signs Temperature 97.6 F 06/07/25 07:57 Pulse Rate 91 06/07/25 07:57 Respiratory Rate 22 H 06/07/25 07:57 Blood Pressure 139/90 06/07/25 07:57 Pulse Oximetry 96 06/07/25 07:57 Oxygen Delivery Me thod Room Air 06/07/25 07:57 MDM - Abdominal Pain Medical Decision Making Patient presents here with acute cystitis possible pyelonephritis as well as A- fib with RVR spoke to hospitalist will admit at this time. Medical Records I reviewed the patient's medical records. Lab Data I reviewed the patient's lab results. 06/07/25 03:55 06/07/25 03:55 Labs/Radiology: Radiology Impressions Abdomen/Pelvis CT 06/05/25 20:05 IMPRESSION: 1. Circumferential wall thickening of the urinary bladder with adjacent inflammation, consistent with cystitis. 2. Bilateral nonobstructing nephrolithiasis. No hydronephrosis or obstructing urolithiasis. 3. Moderate diverticulosis of the descending colon and sigmoid colon. COMMENTS: Consistent with the [employer] [place] [employer]'s Incidental Findings Committee white paper (J Am Adam Radiol 2018): Any incidental renal lesion less than 1 cm or classified as too small to characterize, or any incidental cystic renal lesion characterized as simple-appearing, is likely benign. No follow-up imaging is recommended for these lesions per consensus recommendations based on imaging criteria. Laboratory Results WBC 7.52 10^3/uL (3.29-11.43) 06/05/25: RBC 5.04 10^6/uL (3.85-5.65) 06/05/25: Hgb 15.70 g/dL (11.27-16.99) 06/05/25: Hct 47.0 % (37-53) 06/05/25: MCV 93.3 fl (82-101) 06/05/25: MCH 31.2 pg (27-33) 06/05/25: MCHC 33.4 g/dL (30-55) 06/05/25: RDW 15.1 % (12.1-15.1) 06/05/25 Plt Count 204 10^3/cmm (157-399) 06/05/25: MPV 9.9 fL (7.4-10.4) 06/05/25: Neut % (Auto) 78.0 % 06/05/25: Lymph % (Auto) 10.8 % 06/05/25: [place] % (Auto) 9.3 % 06/05/25: Eos % (Auto) 0.7 % 06/05/25: Baso % (Auto) 0.5 % 06/05/25: Neut # (Auto) 5.87 10^3/uL (1.8-7.7) 06/05/25: Lymph # (Auto) 0.8 10^3/uL (0.8-4.8) 06/05/25: [place] # (Auto) 0.7 10^3/uL (0.2-0.9) 06/05/25: Eos # (Auto) 0.1 10^3/uL (0.0-0.8) 06/05/25: Baso # (Auto) 0.0 10^3/uL (0.0-0.1) 06/05/25: Nucleated RBC % (auto) 0 % 06/05/25: Nucleated RBCs # 0.0 /100WBC 06/05/25: PT 14.50 SECONDS (12.1-14.9) 06/05/25 20:34 INR 1.06 (0.8-1.2) 06/05/25 20:34 APTT 26.8 SECONDS (23.9-36.7) 06/05/25 20:34 Sodium 139 mmol/L (136-145) 06/05/25 20:34 Potassium 3.6 mmol/L (3.5-5.1) 06/05/25 20:34 Chloride 103 mmol/L (98-107) 06/05/25 20:34 Carbon Dioxide 23 mmol/L (22-29) 06/05/25 20:34 Anion Gap 16.6 (5-19) 06/05/25 20:34 BUN 13 mg/dL (6-20) 06/05/25 20:34 Creatinine 0.9 mg/dL (0.7-1.2) 06/05/25 20:34 GFR Calculation 86.7 mL/min (90-130) L 06/05/25 20:34 Glucose 135 mg/dL (65-115) H 06/05/25 20:34 Calculated Osmolality 290 mOsm/kg (285-295) 06/05/25 20:34 Lactic Acid 1.9 mmol/L (0.5-2.2) 06/05/25 20:34 Calcium 8.6 mg/dL (8.5-10.5) 06/05/25 20:34 Total Bilirubin 0.7 mg/dL (0.15-1.2) 06/05/25 20:34 AST 30 U/L (0-40) 06/05/25 20:34 ALT 26 U/L (0-41) 06/05/25 20:34 Alkaline Phosphatase 77 U/L (40-130) 06/05/25 20:34 C-Reactive Protein 119.4 mg/L (0.0-4.9) H 06/05/25 20:34 Total Protein 7.2 g/dL (6.6-8.7) 06/05/25 20:34 Albumin 3.7 g/dL (3.5-5.2) 06/05/25 20:34 Globulin 3.5 g/dL (1.3-4.6) 06/05/25 20:34 Lipase 17 U/L (13-60) 06/05/25 20:34 Procalcitonin 0.35 ng/mL (0-0.5) 06/05/25 20:34 Urine Color Dark yellow (Yellow) A 06/05/25 21:04 Urine Appearance Cloudy (CLEAR) A 06/05/25 21:04 Urine pH 5.5 (5-7) 06/05/25 21:04 Ur Specific Horace 1.035 (1.005-1.030) H 06/05/25 21:04 Urine Protein 2+ (Negative) A 06/05/25 21:04 Urine Glucose (UA) Negative (Normal) 06/05/25 21:04 Urine Ketones Trace (Negative) 06/05/25 21: Urine Blood 2+ (Negative) A 06/05/25 21: Urine Nitrate Positive (Negative) A 06/05/25 21: Urine Bilirubin 1+ (Negative) H 06/05/25 21:04 Urine Urobilinogen >=8.0 mg/dL (Negative) H 06/05/25 21:04 Ur Leukocyte Esterase 1+ (Negative) A 06/05/25 21:04 Urine RBC 6-10 /hpf (0-2) 06/05/25 21:04 Urine WBC >100 /hpf (0-5) H 06/05/25 21:04 Ur Squamous Epith Cells 0-5 /hpf (0-5) 06/05/25 21:04 Calcium Oxalate Crystal 0-4 /hpf H 06/05/25 21:04 Amorphous Sediment Not Reportable 06/05/25 21:04 Urine Bacteria 4+ /hpf (NONE) H 06/05/25 21:04 Hyaline Casts 2.87 /lpf 06/05/25 21:04 Urine Opiates Screen Negative ng/mL (Negative) 06/05/25 21:04 Ur Barbiturates Screen Negative ng/mL (Negative) 06/05/25 21:04 Ur Phencyclidine Scrn Negative ng/mL (Negative) 06/05/25 21:04 Ur Amphetamines Screen Positive ng/mL (Negative) H 06/05/25 21:04 U Benzodiazepines Scrn Negative ng/mL (Negative) 06/05/25 21:04 Urine Cocaine Screen Negative ng/mL (Negative) 06/05/25 21:04 U Marijuana (THC) Screen Positive ng/mL (Negative) H 06/05/25 21:04 All radiology interpretation(s) finalized by discharge Discharge Plan Discharge Patient Disposition: Admitted As Inpatient Admit Provider: Kevin Busby Clinical Impression: Acute UTI, Atrial fibrillation with rapid ventricular response Condition: Stable Discharge Diet: Advance as tolerated Discharge Activity: Resume usual activity Coding Level of Care Code ED Card Hand for Bernarda Kingsley
[2025-06-05] MEDS: ondansetron 2 mg/ML SDV 2 mL 4 MG IVP (20:31)
[2025-06-05] MEDS: HYDROmorphone 0.5 MG/0.5 ML INJ 1 MG IVP (20:31)
[2025-06-05 20:34] VITALS: BP 128/88; PULSE 121; O2SAT 96
[2025-06-05 20:40] LABS: Hematocrit 47.0 % (37-53); Hemoglobin 15.70 g/dL (11.27-16.99); Mean Corpuscular HGB Conc 33.4 g/dL (30-55); Mean Corpuscular Hemoglobin 31.2 pg (27-33); Mean Corpuscular Volume 93.3 fl (82-101); Nucleated Red Blood Cells % 0 %; Platelet Count 204 10^3/cmm (157-399); Red Blood Count 5.04 10^6/uL (3.85-5.65); White Blood Count 7.52 10^3/uL (3.29-11.43)
--- NOTE | 2025-06-05 20:56 | ECG_ITS ---
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 Measurements Intervals [place] Rate: 116 P: 47 HI: 173 QRS: -32 QRSD: 91 T: 46 QT: 302 QTc: 420 Interpretive Statements SINUS TACHYCARDIA POSSIBLE LEFT ATRIAL ENLARGEMENT [-0.1mV P-WAVE IN V1/V2] LEFT AXIS DEVIATION [QRS AXIS < -30] Compared to ECG 03/30/2025 22:28:44 Left-axis deviation now present Sinus rhythm no longer present Electronically Signed On 06-06-2025 23:04:05 CDT by Cristina Estrada M.D. [email or web address]
[2025-06-05 21:00] LABS: Alanine Aminotransferase 26 U/L (0-41); Albumin Level 3.7 g/dL (3.5-5.2); Alkaline Phosphatase 77 U/L (40-130); Anion Gap 16.6 (5-19); Aspartate Amino Transferase 30 U/L (0-40); Blood Urea Nitrogen 13 mg/dL (6-20); Calcium 8.6 mg/dL (8.5-10.5); Carbon Dioxide 23 mmol/L (22-29); Chloride 103 mmol/L (98-107); Creatinine Clr Calc Pharmacy 109.9792; Globulin 3.5 g/dL (1.3-4.6); Glucose 135 mg/dL (65-115); Lipase 17 U/L (13-60); Osmolality Calculated 290 mOsm/kg (285-295); Potassium 3.6 mmol/L (3.5-5.1); Sodium 139 mmol/L (136-145); Total Protein 7.2 g/dL (6.6-8.7)
[2025-06-05] MEDS: dilTIAZem 5 mg/mL SDV 5 mL 10 MG IVP (21:19)
[2025-06-05 21:21] VITALS: BP 137/100; PULSE 115; O2SAT 93
[2025-06-05 21:27] LABS: Glucose Urine UA Negative (Normal); Nitrate Urine Positive (Negative)
[2025-06-05 21:32] LABS: Add Urine Microscopic? YES
[2025-06-05 21:45] LABS: Specific Gravity, Urine 1.035 (1.005-1.030)
[2025-06-05 22:03] VITALS: BP 142/94; PULSE 115; O2SAT 96
[2025-06-05] MEDS: cefTRIAXone 1,000 mg SDV 1000 MG IVP (22:17)
[2025-06-05] MEDS: HYDROcodone-acetaminophen 7.5-325 mg Tablet 1 TAB PO (22:17)
--- NOTE | 2025-06-05 22:51 | P.HP_ITS ---
Providers/Chief Complaint 2 Primary Care Provider: Matteo French MD Chief Complaint: Possible Kidney Pain History of Present Illness Wyatt Hoffman Jr is a 60 year old male with a past medical history of atrial fibrillation, on Eliquis, hypertension, hyperlipidemia, history of chronic back pain who presents to [facility] due to dysuria weakness, fatigue, chills increased back pain, currently patient is alert oriented x 3, following all commands, currently in A-fib with RVR heart rates in the 120s, receiving pain medication, complaining of active bilateral lower back pain with complaints of dysuria, fatigue, weakness, chills, no nausea, vomiting, no abdominal pain, does report history of kidney stones, did not require any surgery, no fevers, no cough Review of Systems 2 Const: Reports: chills, fatigue and malaise Card: Denies: chest pain Resp: Denies: dyspnea : Reports: flank pain, difficulty urinating and dysuria Medications/Allergies Home Medications ?Medication ?Instructions ?Recorded ?Confirmed ?Last Taken ?Type apixaban 5 mg tablet (Eliquis) 5 mg PO BID #180 tabs 0 05/04/24 04/11/25 03/30/25 Rx lisinopril 20 mg tablet 20 mg PO DAILY #90 tabs 01/0 04/2604/11/25 03/30/25 Rx hydroxyzine HCl 50 mg tablet 50 mg PO BID PRN anxety # 60 tabs 01/20/25 04/11/25 Unknown Rx amlodipine 5 mg tablet 5 mg PO DAILY #90 tabs 01/2304/11/25 03/30/25 Rx metoprolol succinate 50 mg 50 mg PO DAILY #90 tabs 12/2704/11/25 03/30/25 Rx tablet,extended release 24 hr oxycodone-acetaminophen 10 mg-325 1 tab PO TID PRN hugo n 30 days #90 03/23/25 04/11/25 03/30/25 Rx mg tablet tabs mupirocin 2 % topical ointment 1 applic topical BID #2 2 grams 03/28/25 04/11/25 03/30/25 Rx (Centany) amoxicillin 875 mg-potassium 1 tab PO BID 7 days #14 t abs 04/11/25 04/11/25 Unknown Rx clavulanate 125 mg tablet doxycycline hyclate 100 mg tablet 100 mg PO BID 7 days #14 tabs 04/11/25 04/11/25 Unknown Rx pantoprazole 20 mg tablet,delayed 20 mg PO DAILY #60 t abs 04/28/25 Unknown Rx release (Protonix) atorvastatin 40 mg tablet See Rx Instructions .Route 0 05/19/25 Unknown Rx .COMPLEX #90 tabs cyclobenzaprine 10 mg tablet See Rx Instructions .Rout e 05/22/25 Unknown Rx .COMPLEX #90 tabs cephalexin 500 mg capsule 500 mg PO TID 7 days #21 cap s 06/05/25 Unknown Rx naproxen 500 mg tablet (Naprosyn) 500 mg PO BID PRN pa in #20 tabs 06/05/25 Unknown Rx Allergies Allergy/AdvReac Type Severity Reaction Status Date / Time No Known Allergies Allergy Verified 06/05/25 20:01 PFSH Acute 2 PFSH: Medical History Paroxysmal atrial fibrillation Methamphetamine abuse, episodic Leg edema, right Sleep apnea Left knee pain AMBROSE positive Hypertension Hypercholesteremia Lupus History of blood clots Heartburn History of traumatic head injury Surgical History Hx of cervical spine surgery Hx of tracheostomy Hx of colonoscopy 2019 History of esophagogastroduodenoscopy (EGD) Family History Sister Cancer lung, hodgkins lymphoma Other CAD (coronary artery disease) Chronic kidney disease (CKD) Hyperlipidemia Hypertension Lung disease Stroke Denies family history of Diabetes Clotting disorder Dementia Psychiatric illness Anesthesia complication Bleeding disorder Social History Smoking and tobacco/nicotine status: never used tobacco/nicotine Alcohol intake: never Substance/Drug Use: current Other substance/drug use details: Intermittent last was 5 weeks before 03/31/2025 Additional social history: Patient wants full code as discussed with Ronny Lee MD 03/31/2025 Lives independently: Yes Current occupational status: unemployed and disabled 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 Special lena needs: No Agree to transfusion: Yes Vitals/I&O/Wt Last Vital Signs Temp 98.7 F 06/05/25 19:58 Pulse 115 H 06/05/25 22:03 Resp 18 06/05/25 19:58 BP 142/94 06/05/25 22:03 Pulse Ox 96 06/05/25 22:03 O2 Del Method Room Air 06/05/25 22:03 Weight last 48 hrs Weight 104.326 kg Physical Exam 2 Const: COMMON NORMALS: no acute distress and patient oriented x3 Eye: COMMON NORMALS: Equal, round and reactive pupils present and EOMs intact bilaterally Resp: COMMON NORMALS: normal respiratory effort, No retractions, No use of accessory muscles and clear to auscultation bilaterally AUSCULTATION: clear to auscultation bilaterally Cardio: COMMON NORMALS: regular rate, regular rhythm, S1 normal heart sound present and S2 normal heart sound present RATE: tachycardic RHYTHM: a bnormal rhythm irregularly irregular HEART SOUNDS: S1 normal heart sound present and S2 normal heart sound present GI: COMMON NORMALS: Normal to inspection, nondistended, normoactive bowel sounds present, Soft to palpation and non-tender PALPATION: Yes No hepatosplenomegaly present Extremity: COMMON NORMALS: no calf tenderness and no pedal edema Neuro: COMMON NORMALS: patient oriented x3, CN's II-XII intact bilaterally and moves all extremities Psych: COMMON NORMALS: mental status grossly normal Data 06/05/25 20:34 06/05/25 20:34 A&P Assessment and plan 1. Pyelonephritis: 2. Acute UTI: 3. Sepsis: 4. Atrial fibrillation with rapid ventricular response: Plan: Pyelonephritis, with UTI, with sepsis CT/CT kidney stone [id number] IMPRESSION: 1. Circumferential wall thickening of the urinary bladder with adjacent inflammation, consistent with cystitis. 2. Bilateral nonobstructing nephrolithiasis. No hydronephrosis or obstructing urolithiasis. 3. Moderate diverticulosis of the descending colon and sigmoid colon. Plan - Blood cultures - Urine cultures - Continue IV Rocephin A-fib with RVR - Continue Eliquis - Cardizem drip - Continue p.o. metoprolol History of sleep apnea, CPAP Full code Lovenox for DVT prophylaxis PDMP PDMP Reviewed: Last Reviewed 06/05/25 22:50 by Kevin Busby MD Attestations 2 Medical Necessity Statement*: Patient requires hospitalization, inpatient, greater than 2 midnights, for sepsis, UTI, pyelonephritis Diagnoses Pyelonephritis N12 Acute UTI N39.0 Sepsis A41.9 Atrial fibrillation with rapid ventricular response I48.91 Sepsis Event Note Evaluation Current stage of sepsis: sepsis Possible source: genitourinary Focused Exam Vital Signs Temp Pulse Resp BP Pulse Ox O2 Del Method 06/05/25 22:03 115 H 142/94 96 Room Air 06/05/25 21:21 115 H 137/100 93 Room Air 06/05/25 20:34 121 H 128/88 96 Room Air 06/05/25 19:58 98.7 F 126 H 18 126/86 96 Date exam was performed: 06/05/25 Time exam was performed: 22:54 Problem List 1. Pyelonephritis: Status: Acute 2. Acute UTI: Status: Acute 3. Sepsis: Status: Acute 4. Atrial fibrillation with rapid ventricular response: Status: Acute
[2025-06-05] MEDS: dilTIAZem 100 MG in sodium chloride 0.9% (add-van) 100 ML IV (23:37)
[2025-06-05 23:38] VITALS: PULSE 116; O2SAT 91
[2025-06-05 23:55] LABS: INR 1.06 (0.8-1.2); Prothrombin Time 14.50 SECONDS (12.1-14.9)
[2025-06-05 23:56] LABS: Partial Thromboplastin Time 26.8 SECONDS (23.9-36.7)
[2025-06-06] VITALS (14 sets, daily range): BP systolic 103–142; BP diastolic 69–95; PULSE 84–105; RESP 14–24; TEMP 36.4–37.6; O2SAT 91–97
[2025-06-06 00:01] LABS: Lactic Sepsis W/Reflex 1.9 mmol/L (0.5-2.2)
[2025-06-06 00:06] LABS: PCP Screen Urine Negative (Negative)
[2025-06-06 00:11] LABS: Procalcitonin 0.35 ng/mL (0-0.5)
[2025-06-06] MEDS: oxyCODONE-APAP 10-325 mg Tablet 1 TAB PO ×3 (01:52→20:24)
[2025-06-06] MEDS: pantoprazole 40 mg SDV IVP (01:52)
[2025-06-06 03:57] LABS: Hematocrit 43.4 % (37-53); Hemoglobin 14.20 g/dL (11.27-16.99); Mean Corpuscular HGB Conc 32.7 g/dL (30-55); Mean Corpuscular Hemoglobin 30.9 pg (27-33); Mean Corpuscular Volume 94.6 fl (82-101); Nucleated Red Blood Cells % 0 %; Platelet Count 181 10^3/cmm (157-399); Red Blood Count 4.59 10^6/uL (3.85-5.65); White Blood Count 6.41 10^3/uL (3.29-11.43)
[2025-06-06 04:25] LABS: Thyroid Stimulating Hormone 3.34 uIU/mL (0.27-4.20)
[2025-06-06 04:29] LABS: Alanine Aminotransferase 29 U/L (0-41); Albumin Level 3.2 g/dL (3.5-5.2); Alkaline Phosphatase 71 U/L (40-130); Anion Gap 13.9 (5-19); Aspartate Amino Transferase 36 U/L (0-40); Blood Urea Nitrogen 12 mg/dL (6-20); Calcium 8.4 mg/dL (8.5-10.5); Carbon Dioxide 23 mmol/L (22-29); Chloride 106 mmol/L (98-107); Creatinine Clr Calc Pharmacy 101.4741; Globulin 2.6 g/dL (1.3-4.6); Glucose 130 mg/dL (65-115); Osmolality Calculated 290 mOsm/kg (285-295); Potassium 3.9 mmol/L (3.5-5.1); Sodium 139 mmol/L (136-145); Total Protein 5.8 g/dL (6.6-8.7)
[2025-06-06] MEDS: metoprolol succinate ER (24 HR) 50 mg Tablet PO (08:55)
[2025-06-06] MEDS: HYDROmorphone 0.5 MG/0.5 ML INJ 0.4 MG IVP (14:39)
--- NOTE | 2025-06-06 18:16 | P.PN_ITS ---
Subjective 2 Subjective: Patient was seen in the morning, he was still having pain in the back and felt that it is related to her kidney stones. No blood in the urine, annular rash or any lower leg swelling. However the patient explained that he is feeling better than yesterday Vitals/I&O/Wt Last Vital Signs Temp 98.6 F 06/06/25 16:00 Pulse 95 06/06/25 16:00 Resp 18 06/06/25 16:00 BP 139/89 06/06/25 16:00 Pulse Ox 92 06/06/25 16:00 O2 Del Method Room Air 06/06/25 16:00 06/06/25 06/06/25 06/06/25 06:59 14:59 22:59 Intake Total .083 480 / 480 Balance . 480 / 480 Weight last 48 hrs Weight 107.048 kg Weight 109.798 kg Weight 104.326 kg Physical Exam 2 Narrative: General: Alert oriented x3, patient seen in mild distress due to back pain HEENT: Normocephalic, atraumatic, EOMI, breathing at room air with normal oxygen saturation Cardio: Regular rate rhythm, normal S1-S2, no murmurs Respiratory: Good bilateral air entry, no wheezes no rhonchi appreciated GI: Abdomen soft, nontender, nondistended, normoactive bowel sounds present all 4 quadrants, mild bilateral flank pain on deep palpation Neuro: Cranial nerves II to XII intact, strength 5/5, sensation 5/5, no gross neurological deficit Behavior: Appropriate and cooperative Extremities: Pulses 2+, no edema, no cyanosis Skin: Visible skin intact, no rashes Data 06/06/25 03:21 06/06/25 03:21 Micro: Microbiology 06/05/25 23:39 Blood Culture - Preliminary Blood SPECIMEN COLLECTED 06/05/25 23:46 Blood Culture - Preliminary Blood SPECIMEN COLLECTED A&P Assessment and plan 1. Atrial fibrillation with rapid ventricular response: 2. Pyelonephritis: 3. Sleep apnea: 4. Sepsis: Plan: Based on patient flank pains, tachycardia, high CRP, UA showing urinary tract infection, CT scan showing urinary bladder with inflammation consistent with cystitis with suspected source of infection as UTI patient started on ceftriaxone 1 g daily. Adequate analgesia for pain control Prelim 2 sets of blood cultures are negative. Lactate 2 follow-up Urine culture to follow Continue to monitor patient's symptoms Continue home medication diltiazem, metoprolol and apixaban for atrial fibrillation Sleep studies and follow-up with pulmonology for possible sleep apnea The patient has been informed about his current plan of care, without any language barrier and agreed with the plan of care PDMP PDMP Reviewed: Not Reviewed Attestations 2 Medical Necessity Statement*: The patient will stay more than 2 days to stabilize his condition Coding Level of Care Code 64706 Diagnoses Atrial fibrillation with rapid ventricular response I48.91 Pyelonephritis N12 Sleep apnea G47.30 Sepsis A41.9
[2025-06-06 20:03] LABS: Lactate (Lactic Acid level) 0.8 mmol/L (0.5-2.2)
[2025-06-06] MEDS: cefTRIAXone 1,000 mg SDV 1000 MG IVP (22:11)
[2025-06-07] VITALS: BP 126/85; PULSE 98; RESP 24; TEMP 36.9; O2SAT 96
[2025-06-07] MEDS: pantoprazole 40 mg SDV IVP (00:16)
[2025-06-07] MEDS: HYDROmorphone 0.5 MG/0.5 ML INJ 0.4 MG IVP ×2 (00:20→09:28)
[2025-06-07 04:00] VITALS: BP 137/85; PULSE 82; RESP 14; TEMP 36.8; O2SAT 95
[2025-06-07 04:16] LABS: Hematocrit 41.4 % (37-53); Hemoglobin 13.70 g/dL (11.27-16.99); Mean Corpuscular HGB Conc 33.1 g/dL (30-55); Mean Corpuscular Hemoglobin 30.9 pg (27-33); Mean Corpuscular Volume 93.5 fl (82-101); Nucleated Red Blood Cells % 0 %; Platelet Count 204 10^3/cmm (157-399); Red Blood Count 4.43 10^6/uL (3.85-5.65); White Blood Count 6.16 10^3/uL (3.29-11.43)
[2025-06-07 04:38] LABS: Alanine Aminotransferase 31 U/L (0-41); Albumin Level 2.9 g/dL (3.5-5.2); Alkaline Phosphatase 77 U/L (40-130); Anion Gap 14.3 (5-19); Aspartate Amino Transferase 32 U/L (0-40); Blood Urea Nitrogen 10 mg/dL (6-20); Calcium 8.2 mg/dL (8.5-10.5); Carbon Dioxide 24 mmol/L (22-29); Chloride 103 mmol/L (98-107); Creatinine Clr Calc Pharmacy 111.3570; Globulin 3.0 g/dL (1.3-4.6); Glucose 143 mg/dL (65-115); Osmolality Calculated 288 mOsm/kg (285-295); Potassium 3.3 mmol/L (3.5-5.1); Sodium 138 mmol/L (136-145); Total Protein 5.9 g/dL (6.6-8.7)
[2025-06-07 04:39] LABS: Lactate (Lactic Acid level) 1.5 mmol/L (0.5-2.2)
[2025-06-07 06:00] VITALS: PULSE 74
[2025-06-07 07:57] VITALS: BP 139/90; PULSE 91; RESP 22; TEMP 36.4; O2SAT 96
[2025-06-07] MEDS: metoprolol succinate ER (24 HR) 50 mg Tablet PO (09:28)
--- NOTE | 2025-06-07 11:33 | PC.NURSE ---
Patient has been dimissed from [facility]. Case mangement will set patient with with new PCP.
[2025-06-07 11:45] VITALS: BP 126/92; PULSE 87; RESP 24; TEMP 36.6; O2SAT 97
[2025-06-07 11:59] VITALS: BP 126/92; PULSE 87; RESP 24; TEMP 36.6; O2SAT 97
--- NOTE | 2025-06-07 12:08 | PM.DCS ---
Discharge Providers Date of Admission: 06/06/25 00:42 Date of Discharge: June 07, 2025 Attending Provider at Admission: Kevin Busby MD Attending Provider at Discharge: Chris Mendez MD Primary Care Provider: Matteo French MD Diagnoses at Discharge Discharge Diagnosis 1. Atrial fibrillation with rapid ventricular response: 2. Pyelonephritis: 3. Sleep apnea: 4. Sepsis: Reason for Visit Reason for Visit: Possible Kidney Pain Brief History: Wyatt Hoffman Jr is a 60 year old male with a past medical history of atrial fibrillation, on Eliquis, hypertension, hyperlipidemia, history of chronic back pain who presents to [facility] due to dysuria weakness, fatigue, chills increased back pain,. The patient was found to have atrial fibrillation that was having a heart rate with 120s likely underlying pain, lower back pain and painful micturition. The patient denied any high-grade fever with chills or nausea or vomiting diarrhea or any abdominal pain. The patient does report having history of kidney stones and passing but did not follow with any urology or surgery. The patient did not report any recent history of drug abuse, or any history of blood in the urine although leg swellings Hospital Course Hospital Course Upon arrival to the hospital, the patient was having RVR with at fib.And CT scan/abd pelvis showed signs of cystitis, bilateral nonobstructing nephrolithiasis but no hydronephrosis and moderate diverticulosis of the descending colon and sigmoid colon. The patient was started on ceftriaxone improved significantly. For atrial fibrillation with RVR we continued with the Eliquis metoprolol and he received Cardizem drip which further optimized his heart rate. The patient improved significantly however was having chronic back pain which was before the admission and is on analgesics for it. Blood cultures and urine cultures were sent and urine culture showed gram-negative rods. The patient did not have any febrile episodes during his hospital stay and his hospital stay was uncomplicated. Patient to be discharged on Bactrim for further 7 days. The patient was informed about the plan of care and agreed without any language barrier. OT PT eval was offered and ordered was placed. And the patient agreed to go home as per his preference. to follow up with the PCP after discharge Physical Exam Narrative: General: Alert oriented x3, patient seen in mild distress due to back pain HEENT: Normocephalic, atraumatic, EOMI, breathing at room air with normal oxygen saturation Cardio: Regular rate rhythm, normal S1-S2, no murmurs Respiratory: Good bilateral air entry, no wheezes no rhonchi appreciated GI: Abdomen soft, nontender, nondistended, normoactive bowel sounds present all 4 quadrants, mild bilateral flank pain on deep palpation Neuro: Cranial nerves II to XII intact, strength 5/5, sensation 5/5, no gross neurological deficit Behavior: Appropriate and cooperative Extremities: Pulses 2+, no edema, no cyanosis Skin: Visible skin intact, no rashes Discharge Data Studies Completed and Pending Completed Studies During Hospitalization Category Date Time Status CT abdomen renal stone [CT kidney stone [id number]] Stat Cat Scan 06/05/25 20:05 Completed Pending at discharge Category Date Time Status Blood Culture Stat Lab 06/05/25 23:39 Results Urine Culture Stat Lab 06/05/25 21:04 Results Radiology Impressions Abdomen/Pelvis CT 06/05/25 20:05 IMPRESSION: 1. Circumferential wall thickening of the urinary bladder with adjacent inflammation, consistent with cystitis. 2. Bilateral nonobstructing nephrolithiasis. No hydronephrosis or obstructing urolithiasis. 3. Moderate diverticulosis of the descending colon and sigmoid colon. COMMENTS: Consistent with the [employer]'s Incidental Findings Committee white paper (J Am Adam Radiol 2018): Any incidental renal lesion less than 1 cm or classified as too small to characterize, or any incidental cystic renal lesion characterized as simple-appearing, is likely benign. No follow-up imaging is recommended for these lesions per consensus recommendations based on imaging criteria. Laboratory Results WBC 6.16 10^3/uL (3.29-11.43) 06/07/25 03:55 RBC 4.43 10^6/uL (3.85-5.65) 06/07/25 03:55 Hgb 13.70 g/dL (11.27-16.99) 06/07/25 03:55 Hct 41.4 % (37-53) 06/07/25 03:55 MCV 93.5 fl (82-101) 06/07/25 03:55 MCH 30.9 pg (27-33) 06/07/25 03:55 MCHC 33.1 g/dL (30-55) 06/07/25 03:55 RDW 14.7 % (12.1-15.1) 06/07/25 03:55 Plt Count 204 10^3/cmm (157-399) 06/07/25 03:55 MPV 10.0 fL (7.4-10.4) 06/07/25 03:55 Neut % (Auto) 49.0 % 06/07/25 03:55 Lymph % (Auto) 29.9 % 06/07/25 03:55 [place] % (Auto) 17.0 % 06/07/25 03:55 Eos % (Auto) 2.8 % 06/07/25 03:55 Baso % (Auto) 0.8 % 06/07/25 03:55 Neut # (Auto) 3.02 10^3/uL (1.8-7.7) 06/07/25 03:55 Lymph # (Auto) 1.8 10^3/uL (0.8-4.8) 06/07/25 03:55 [place] # (Auto) 1.1 10^3/uL (0.2-0.9) H 06/07/25 03:55 Eos # (Auto) 0.2 10^3/uL (0.0-0.8) 06/07/25 03:55 Baso # (Auto) 0.1 10^3/uL (0.0-0.1) 06/07/25 03:55 Nucleated RBC % (auto) 0 % 06/07/25 03:55 Nucleated RBCs # 0.0 /100WBC 06/07/25 03:55 PT 14.50 SECONDS (12.1-14.9) 06/05/25 20:34 INR 1.06 (0.8-1.2) 06/05/25 20:34 APTT 26.8 SECONDS (23.9-36.7) 06/05/25 20:34 Sodium 138 mmol/L (136-145) 06/07/25 03:55 Potassium 3.3 mmol/L (3.5-5.1) L 06/07/25 03:55 Chloride 103 mmol/L (98-107) 06/07/25 03:55 Carbon Dioxide 24 mmol/L (22-29) 06/07/25 03:55 Anion Gap 14.3 (5-19) 06/07/25 03:55 BUN 10 mg/dL (6-20) 06/07/25 03:55 Creatinine 0.9 mg/dL (0.7-1.2) 06/07/25 03:55 GFR Calculation 86.7 mL/min (90-130) L 06/07/25 03:55 Glucose 143 mg/dL (65-115) H 06/07/25 03:55 Calculated Osmolality 288 mOsm/kg (285-295) 06/07/25 03:55 Lactic Acid 1.9 mmol/L (0.5-2.2) 06/05/25 20:34 Lactate 1.5 mmol/L (0.5-2.2) 06/07/25 03:55 Calcium 8.2 mg/dL (8.5-10.5) L 06/07/25 03:55 Total Bilirubin 0.2 mg/dL (0.15-1.2) 06/07/25 03:55 AST 32 U/L (0-40) 06/07/25 03:55 ALT 31 U/L (0-41) 06/07/25 03:55 Alkaline Phosphatase 77 U/L (40-130) 06/07/25 03:55 C-Reactive Protein 119.4 mg/L (0.0-4.9) H 06/05/25 20:34 Total Protein 5.9 g/dL (6.6-8.7) L 06/07/25 03:55 Albumin 2.9 g/dL (3.5-5.2) L 06/07/25 03:55 Globulin 3.0 g/dL (1.3-4.6) 06/07/25 03:55 Lipase 17 U/L (13-60) 06/05/25 20:34 Procalcitonin 0.35 ng/mL (0-0.5) 06/05/25 20:34 TSH 3.34 uIU/mL (0.27-4.20) 06/06/25 03:21 Urine Color Dark yellow (Yellow) A 06/05/25 21:04 Urine Appearance Cloudy (CLEAR) A 06/05/25 21:04 Urine pH 5.5 (5-7) 06/05/25 21:04 Ur Specific [place] 1.035 (1.005-1.030) H 06/05/25 21:04 Urine Protein 2+ (Negative) A 06/05/25 21:04 Urine Glucose (UA) Negative (Normal) 06/05/25 21:04 Urine Ketones Trace (Negative) 06/05/25 21:04 Urine Blood 2+ (Negative) A 06/05/25 21:04 Urine Nitrate Positive (Negative) A 06/05/25 21:04 Urine Bilirubin 1+ (Negative) H 06/05/25 21:04 Urine Urobilinogen >=8.0 mg/dL (Negative) H 06/05/25 21:04 Ur Leukocyte Esterase 1+ (Negative) A 06/05/25 21:04 Urine RBC 6-10 /hpf (0-2) 06/05/25 21:04 Urine WBC >100 /hpf (0-5) H 06/05/25 21:04 Ur Squamous Epith Cells 0-5 /hpf (0-5) 06/05/25 21:04 Calcium Oxalate Crystal 0-4 /hpf H 06/05/25 21:04 Amorphous Sediment Not Reportable 06/05/25 21:04 Urine Bacteria 4+ /hpf (NONE) H 06/05/25 21:04 Hyaline Casts 2.87 /lpf 06/05/25 21:04 Urine Opiates Screen Negative ng/mL (Negative) 06/05/25 21:04 Ur Barbiturates Screen Negative ng/mL (Negative) 06/05/25 21:04 Ur Phencyclidine Scrn Negative ng/mL (Negative) 06/05/25 21:04 Ur Amphetamines Screen Positive ng/mL (Negative) H 06/05/25 21:04 U Benzodiazepines Scrn Negative ng/mL (Negative) 06/05/25 21:04 Urine Cocaine Screen Negative ng/mL (Negative) 06/05/25 21:04 U Marijuana (THC) Screen Positive ng/mL (Negative) H 06/05/25 21:04 Vitals Last Vital Signs Temp 97.8 F 06/07/25 11:59 Pulse 87 06/07/25 11:59 Resp 24 H 06/07/25 11:59 BP 126/92 06/07/25 11:59 Pulse Ox 97 06/07/25 11:59 O2 Del Method Room Air 06/07/25 11:45 Discharge Plan Discharge Patient Disposition: Home Condition: Stable Prescriptions: New naproxen [Naprosyn] 500 mg tablet 500 mg PO BID PRN (Reason: pain) Qty: 20 0RF cephalexin 500 mg capsule 500 mg PO TID 7 Days Qty: 21 0RF sulfamethoxazole-trimethoprim [Bactrim] 400-80 mg tablet 1 tab PO BID 7 Days Qty: 14 0RF Continued lisinopril 20 mg tablet 20 mg PO DAILY Qty: 90 1RF oxycodone-acetaminophen 10-325 mg tablet 1 tab PO TID PRN (Reason: pain) 30 Days Qty: 90 0RF mupirocin [Centany] 2 % ointment 1 applic topical BID Qty: 22 0RF Eliquis 5 mg tablet 5 mg PO BID Qty: 180 2RF amlodipine 5 mg tablet 5 mg PO DAILY Qty: 90 1RF metoprolol succinate 50 mg tablet extended release 24 hr 50 mg PO DAILY Qty: 90 1RF pantoprazole [Protonix] 20 mg tablet,delayed release (DR/EC) 20 mg PO DAILY Qty: 60 1RF atorvastatin 40 mg tablet See Rx Instructions .ROUTE .COMPLEX Qty: 90 1RF Dose Instruction: TAKE 1 TABLET BY MOUTH EVERY DAY Rx Instructions: TAKE 1 TABLET BY MOUTH EVERY DAY cyclobenzaprine 10 mg tablet See Rx Instructions .ROUTE .COMPLEX Qty: 90 1RF Dose Instruction: TAKE 1 TABLET BY MOUTH THREE TIMES A DAY NEEDED FOR MUSCLE SPASM Rx Instructions: TAKE 1 TABLET BY MOUTH THREE TIMES A DAY NEEDED FOR MUSCLE SPASM esomeprazole magnesium 40 mg capsule,delayed release(DR/EC) 40 mg PO DAILY Discharge Order = DC NOW: Discharge Order (Routine); Ordered 06/07/25 Ordered By: Chris Mendez Other Ambulatory Orders: Physical Therapy Eval and Treat Outpatient (Order) Timeframe: 2 Weeks Facility: [facility] - Location: Physical Therapy [place] Ordered By: Chris Mendez Referrals: [facility] Outpatient Therapy [Outside] Félix Judd MD [Referring, Family Practice] Referral Note: Matteo French MD [Primary Care Provider, Family Practice] - 4-7 days Discharge Diet: Advance as tolerated and Usual diet Discharge Activity: Resume usual activity and Increase activity as tolerated Patient Instructions: Cephalexin (By mouth) (Bio-Cef, Keflex), Sulfamethoxazole/Trimethoprim (By mouth) (Bactrim, Bactrim DS,..., Naproxen (By mouth) (Naprosyn, Naproksen Sodyum, Aleve, Aleve..., A-fib (Atrial Fibrillation) (DC), Sleep Apnea (GEN), Urinary Tract Infection in Men (ED), Sepsis (DC), Opioid Safety, Patient Portal & Tu Instructions Discharge Attestations Time Spent in Discharge Care*: greater than 30 min Specific Discharge Activities: educating patient, educating and/or supporting family/caregiver, discussing with pcp/other providers, discussing with assistant case manager/social workers/dc planners, documenting/other paperwork and evaluating patient/reviewing data Quality Metrics Clinical Quality Measures [ No reported AMI, CVA or VTE this stay] Coding Level of Care Code 17517 Diagnoses Atrial fibrillation with rapid ventricular response I48.91 Pyelonephritis N12 Sleep apnea G47.30 Primary sleep apnea of type: unspecified type Sepsis A41.9 Severe sepsis shock status: without septic shock
--- OUTSIDE RECORDS SUMMARY | 2025-06-09 10:09 | XMS_ITS | Patient Health Record ---
Author Organization [facility] Address [address] [place] [address] Care Team Providers Care Chro Name Role Phone Suleiman Min Primary Care Provider Reason For Referral No Information Medications Medication SIG (Take, Route, Frequency, Duration) Notes Start Date End Date Status amLODIPine Besylate 5 MG Tablet 1 tablet Orally Once a day; Duration: 90 days Active Lisinopril 20 MG Tablet 1 tablet Orally Once a day; Duration: 30 days Active Metoprolol Tartrate 50 MG Tablet 1 tablet with food Orally Twice a day; Duration: 30 days Active Warfarin Sodium 7.5 MG Tablet 1 tablet Orally Once a day; Duration: 30 days Active Famotidine 20 MG Tablet 1 tablet at bedt mani as needed Orally Once a day Active Atorvastatin Calcium 20 MG Tablet 1 tablet Orally Once a day; Duration: 30 days Active Naproxen 500 MG Tablet 1 tablet with joaquin d or milk as needed Orally every 12 hrs Active Triamcinolone Acetonide 0.1 % Cream 1 application Externally Two times a Week Active Social History Tobacco Use: Social History Observation Description Date Details (start date - stop date) Never Smoker NA - NA Social History Depression Screening Social Info Question Answer Notes PHQ-9 Little interest or pleasure in doing thin gs Several days Feeling down, depressed, or hopeless Several day s Trouble falling or staying a sleep, or sleeping too much Nearly every day Feeling tired or having little energy More than half the days Poor appetite or overeating Nearly every day Feeling bad about yourself, or that you are a failure, or have let yourself or your family down Nearly every day Trouble concentrating on thi ngs, such as reading the newspaper or watching television More than half the days Moving or speaking so slowly that other people could have noticed. Or the opposite ? being so fidgety or restless that you have been moving around a lot more than usual More than half the days Thoughts that you would be b toribio off , or of hurting yourself in some way More than half the days (Consider Suicide Assessment Risk) Total Score 19 Interpretation Moderately severe depression Drugs/Alcohol: Social Info Question Answer Notes Alcohol Screen (Audit-C) Did you have a drink containing alcohol in the past year? No Points 0 Interpretation Negative Tobacco Use: Social Info Question Answer Notes xTobacco Use/Smoking Are you a nonsmoker Additional Details Category Social Info Options Details Drugs/Alcohol: Do you smoke marijuana? De nies Problems Problem Type SNOMED Code ICD Code Onset Dates Problem Status W/U Status Risk Notes Problem Gastroesophageal reflux disease (373993187) GERD without esophagitis (K21.9) Active confirmed Problem Essential hypertension (55873286) Hypertension, unspecified type (I10) Active confirmed Problem Joint pain (65583286) Arthralgia , unspecified joint (M25.50) Active confirmed Problem Atrial fibrillation (80775035) Atrial fibrillation, unspecified type (I48.91) Active confirmed Problem Hypercholesterolemia (56494310) Hypercholesterolemia (E78.00) Active confirmed Plan Of Treatment No Information Medications Administered Medication Instructions Date of Administration Dosage Notes Rocephin 02/24/2023 500 mg [facility] [place]#[id number] -11 Medical (General) History Medical History History ICD Code Arthritis migraine headaches Back Trouble High Blood Pressure
--- OUTSIDE RECORDS SUMMARY | 2025-06-09 10:09 | XMS_ITS | Clinical Summary ---
Author Organization [facility] Address [address] [place] [address] Phone Care Team Providers Care Linen Room Supervisor Name Role Phone Unavailable Primary Care Provider [...] Comments Blood Pressure 121/88 12/02/2023 3:04 PM SEWING MACHINE OPERATOR SEMIAUTOMATIC Pulse 79 12/02/2023 3:04 PM SEWING MACHINE OPERATOR SEMIAUTOMATIC Temperature 36.1 C (96.9 F) 12/02/2023 3:04 PM SEWING MACHINE OPERATOR SEMIAUTOMATIC Respiratory Rate 16 12/02/2023 3:04 PM SEWING MACHINE OPERATOR SEMIAUTOMATIC Oxygen Saturation 94% 12/02/2023 3:04 PM SEWING MACHINE OPERATOR SEMIAUTOMATIC Inhaled Oxygen Concentration - - Weight 104.3 kg (230 lb) 12/02/2023 1:29 PM SEWING MACHINE OPERATOR SEMIAUTOMATIC Height 180.3 cm (5' 11 ) 12/02/2023 1:29 PM SEWING MACHINE OPERATOR SEMIAUTOMATIC Body Mass Index 32.08 12/02/2023 1:29 PM SEWING MACHINE OPERATOR SEMIAUTOMATIC Plan of Treatment Health Maintenance Due Date [...] (#1) 2025 Medical Devices Implanted Type Area Portfolio Accountant Device Identifier Shelf Expiration Date Model / Serial / Lot Lens Iol Tecnis Eyhance 21.0 [id number] - [id number] Implanted:Qty: 1 on 10/07/2023 by Ace Erwin MD at [facility] Lens Left: Eye [employer] 07/28/2026 [id number] / [id number] / Lens Iol Tecnis Eyhance 21.0 [id number] - [id number] Implanted:Qty: 1 on 12/02/2023 by Ace Erwin MD at [facility] Lens Right: Eye [employer] 06/28/2026 [id number] / [id number] / Insurance [facility] MEDICAID AMBETTER EXCHANGE ID
== END 2025-06-07 12:01 | disposition home or self-care (01) ==
LOC: ER 22:01 → CSU 06-06 01:39
PROVIDERS: Admitting Provider Family Medicine; Emergency Provider Emergency Medicine; PCP Family Medicine; Visit Provider Student in an Organized Health Care Education/Training Program
DX: N12 Tubulo-interstitial nephritis, not specified as acute or chronic (principal); I48.91 Unspecified atrial fibrillation; A41.9 Sepsis, unspecified organism; G47.30 Sleep apnea, unspecified; K21.9 Gastro-esophageal reflux disease without esophagitis; Z79.01 Long term (current) use of anticoagulants; I10 Essential (primary) hypertension; E78.5 Hyperlipidemia, unspecified; Z87.442 Personal history of urinary calculi; N39.0 Urinary tract infection, site not specified; Z82.49 Family history of ischemic heart disease and other diseases of the circulatory system; Z79.891 Long term (current) use of opiate analgesic
CPT/HCPCS: 36415; 74176; 80053; 80306; 81001; 83605; 83690; 84145; 84443; 85025; 85610; 85730; 86140; 87040; 87077; 87086; 87186; 93005; 94664; 96365; 96366; 96375; 97165; 99285; G0378; J0696; J1171; J1885; J2405; J2470; J3490; J7030; J9999

== ENCOUNTER 2025-06-19 09:08 | Outpatient (RCR) | payer MEDICARE, MEDICAID, SELFPAY | END 2025-07-02 23:59 | disposition home or self-care (01) | LOC: SPT 09:08 | PROVIDERS: Visit Provider Student in an Organized Health Care Education/Training Program | DX: M54.41 Lumbago with sciatica, right side (principal); G89.29 Other chronic pain; M51.361 Other intervertebral disc degeneration, lumbar region with lower extremity pain only | CPT/HCPCS: 97161 ==

== ENCOUNTER 2025-07-03 05:00 | Outpatient (RCR) | payer MEDICARE, MEDICAID, SELFPAY | END 2025-08-01 23:59 | disposition home or self-care (01) | LOC: SPT 05:00 | PROVIDERS: Visit Provider Student in an Organized Health Care Education/Training Program | DX: M54.41 Lumbago with sciatica, right side (principal) | CPT/HCPCS: 97110 ==

== ENCOUNTER 2025-07-20 18:42 | Emergency (ER) | payer MEDICARE, MEDICAID, SELFPAY ==
[2025-07-20 18:56] VITALS: BP 146/89; PULSE 89; TEMP 37.2; O2SAT 96
--- OUTSIDE RECORDS SUMMARY | 2025-07-20 18:58 | XMS_ITS | Encounter Summary ---
Author Organization [facility] Address [address] [place] [address] Care Team Providers Care Rubber Down Name Role Phone Unavailable Primary Care Provider Unavailabl e Reason for Visit * Reason Onset Date Comments Medication Problem 06/27/2025 Medication Ad herence Review Encounter Details Date Type Department Care Team (Late Contact Info) Description 06/27/2025 Patient Outreach [facility] Varnish Thinner Management [address], [address] [place] [address] Katty Harmon Medication Problem (Medication Adherence Review ) Social History Tobacco Use Types Packs/Day Years Used Date Smoking Tobacco: Never Alcohol Use Standard Drinks/Week Comments Not Currently 0 (1 standard drink = 0.6 oz pur e alcohol) Feeling Safe Answer Date Recorded Are you in a relationship wi th someone who hurts you emotionally and/or physically? No 12/02/2023 Sex and Gender Information Value Date Recorded Sex Assigned at Not on file Legal Sex Male 8:55 AM CDT Gender Identity Not on file Sexual Orientation Not on file documented as of this encounter Miscellaneous Notes * Telephone Encounter - Katty Harmon - 06/29/2025 12:45 PM CDT Medication Adherence Outreach Value Based Care Second Attempt for medication adherence: The patient has been specifically reviewed for the following pharmacy-related CMS Part D Star Ratings Measure: Cholesterol. Based on the patient's refill history, there is concern for their Proportions of Days Covered (PDC) to fall below the requirement of 80% adherence set by CMS. The Patient has been identified by [employer] as non-adherent to atorvastatin with a PDC of 65 %. Left Voicemail with callback number ([phone]) to discuss medication adherence and ensure patient is tolerating all medications without adverse events or barriers to medication adherence. Katty Harmon Specialty Emergency Room Tech [facility] * Telephone Encounter - Katty Harmon - 06/27/2025 9:33 AM CDT Medication Adherence Outreach Value Based Care First Attempt for medication adherence: The patient has been specifically reviewed for the following pharmacy-related CMS Part D Star Ratings Measure: Cholesterol. Based on the patient's refill history, there is concern for their Proportions of Days Covered (PDC) to fall below the requirement of 80% adherence set by CMS. The Patient has been identified by [employer] as non-adherent to atorvastatin with a PDC of 65 %. Left Voicemail with callback number ([phone]) to discuss medication adherence and ensure patient is tolerating all medications without adverse events or barriers to medication adherence. Katty Harmon Specialty Emergency Room Tech [facility] documented in this encounter Plan of Treatment Not on file documented as of this encounter Visit Diagnoses Not on filedocumented in this encounter
--- OUTSIDE RECORDS SUMMARY | 2025-07-20 18:58 | XMS_ITS | Clinical Summary ---
Author Organization [facility] Address [address] [place] [address] Phone Care Team Providers Care Copy Lathe Tender Name Role Phone Unavailable Primary Care Provider [...] Active Active Problems No known active problems Encounters Date Type Department Care Team Description 06/27/2025 Patient Outreach [facility] Performance Specialist Management [address] [place] [address] Katty Harmon Medication Problem (Medication Adherence Review ) from Last 3 Months Social History Tobacco Use Types Packs/Day Years [...] Comments Blood Pressure 121/88 12/02/2023 3:04 PM IRONWORKER FOREMAN Pulse 79 12/02/2023 3:04 PM IRONWORKER FOREMAN Temperature 36.1 C (96.9 F) 12/02/2023 3:04 PM IRONWORKER FOREMAN Respiratory Rate 16 12/02/2023 3:04 PM IRONWORKER FOREMAN Oxygen Saturation 94% 12/02/2023 3:04 PM IRONWORKER FOREMAN Inhaled Oxygen Concentration - - Weight 104.3 kg (230 lb) 12/02/2023 1:29 PM IRONWORKER FOREMAN Height 180.3 cm (5' 11 ) 12/02/2023 1:29 PM IRONWORKER FOREMAN Body Mass Index 32.08 12/02/2023 1:29 PM IRONWORKER FOREMAN Plan of Treatment Health Maintenance Due Date [...] (#1) 2025 Medical Devices Implanted Type Area Supervisor Treating And Pumping Device Identifier Shelf Expiration Date Model / Serial / Lot Lens Iol Tecnis Eyhance 21.0 [id number] - [id number] Implanted:Qty: 1 on 10/07/2023 by Ace Erwin MD at [facility] Lens Left: Eye [employer] 07/28/2026 [id number] / [id number] / Lens Iol Tecnis Eyhance 21.0 [id number] - [id number] Implanted:Qty: 1 on 12/02/2023 by Ace Erwin MD at [facility] Lens Right: Eye [employer] 06/28/2026 [id number] / [id number] / Insurance ([place]) [id number] [facility] [id number] [facility] [employer] [place] [place] [phone] [facility]
[2025-07-20 20:34] VITALS: BP 128/86; PULSE 82; RESP 16; O2SAT 94
--- NOTE | 2025-07-20 21:02 | ED_ITS ---
HPI - Extremity Problem 2 General: Chief complaint: Extremity Problem,Nontraumatic Stated complaint: leg swelling tingling had blood clot Time Seen by Provider: 07/20/25 19:50 History of Present Illness: 60-year-old male that reports to emergen cy room with lower extremity edema, right greater than left, with history of coagulopathy, states compliance to Eliquis. No history of cancer. No recent surgery. No recent traveling. He admits to increasing leg tingling. No shortness of breath or cough with this. He was attending outpatient rehabilitation, for which they recommended he come to the ED. No fevers. Associated symptoms: Deny chest pain Related Data Home Medications ?Medication ?Instructions ?Recorded ?Confirmed esomeprazole magnesium 40 mg 40 mg PO DAILY 06/06/25 0 06/06/25 capsule,delayed release Previous Rx's ?Medication ?Instructions ?Recorded apixaban 5 mg tablet (Eliquis) 5 mg PO BID #180 tabs 0 05/04/24 lisinopril 20 mg tablet 20 mg PO DAILY #90 tabs 04/26 amlodipine 5 mg tablet 5 mg PO DAILY #90 tabs 01/23 metoprolol succinate 50 mg 50 mg PO DAILY #90 tabs 12/27 tablet,extended release 24 hr oxycodone-acetaminophen 10 mg-325 1 tab PO TID PRN hugo n 30 days #90 03/23/25 mg tablet tabs mupirocin 2 % topical ointment 1 applic topical BID #2 2 grams 03/28/25 (Centany) pantoprazole 20 mg tablet,delayed 20 mg PO DAILY #60 t abs 04/28/25 release (Protonix) atorvastatin 40 mg tablet See Rx Instructions .Route 0 05/19/25 .COMPLEX #90 tabs cyclobenzaprine 10 mg tablet See Rx Instructions .Rout e 05/22/25 .COMPLEX #90 tabs naproxen 500 mg tablet (Naprosyn) 500 mg PO BID PRN pa in #20 tabs 06/05/25 cephalexin 500 mg capsule 500 mg PO Q8H 10 days #30 ca ps 07/21/25 Allergies Allergy/AdvReac Type Severity Reaction Status Date / Time No Known Allergies Allergy Verified 07/20/25 19:01 Review of Systems 2 Const: Reports: chills, fatigue and malaise ENMT: Denies: throat pain, mouth pain or dry mouth Card: Denies: chest pain Resp: Denies: dyspnea GI: Denies: abdominal pain, nausea or vomiting : Denies: flank pain, difficulty urinating, dysuria or urinary frequency Musc: Denies: neck pain, back pain or extremity pain Neuro: Reports: difficulty walking; Denies: headache(s), numbness in extremities or lack of coordination Psych: Denies: anxiety or depression PFSH ED 2 PFSH: Medical History (Updated 07/21/25 @ 00:34 by WENDY Sarkar) Paroxysmal atrial fibrillation Methamphetamine abuse, episodic Leg edema, right Sleep apnea Left knee pain AMBROSE positive Hypertension Hypercholesteremia Lupus History of blood clots Heartburn History of traumatic head injury Surgical History Hx of cervical spine surgery Hx of tracheostomy Hx of colonoscopy 2019 History of esophagogastroduodenoscopy (EGD) Family History Sister Cancer lung, hodgkins lymphoma Other CAD (coronary artery disease) Chronic kidney disease (CKD) Hyperlipidemia Hypertension Lung disease Stroke Denies family history of Diabetes Clotting disorder Dementia Psychiatric illness Anesthesia complication Bleeding disorder Social History Smoking and tobacco/nicotine status: never used tobacco/nicotine Alcohol intake: never Substance/Drug Use: current Other substance/drug use details: Intermittent last was 5 weeks before 03/31/2025 Additional social history: Patient wants full code as discussed with Ronny Lee MD 03/31/2025 Lives independently: Yes Current occupational status: unemployed and disabled 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 Special lena needs: No Agree to transfusion: Yes Physical Exam 2 Const: COMMON NORMALS: no acute distress, patient oriented x3 and healthy appearing HENMT: COMMON NORMALS: normocephalic and atraumatic HEAD & SCALP: n ormocephalic and atraumatic Eye: COMMON NORMALS: conjunctivae normal CONJUNCTIVA: Yes conjunctivae normal Neck/C-Spine: COMMON NORMALS: full ROM and supple Chest: COMMONS NORMALS: normal inspection of the chest Resp: COMMON NORMALS: normal respiratory effort, No retractions, No use of accessory muscles and clear to auscultation bilaterally AUSCULTATION: clear to auscultation bilaterally Cardio: COMMON NORMALS: regular rate, regular rhythm and No murmurs present (Cardio) RATE: regular rate RHYTHM: regular rhythm GI: COMMON NORMALS: Normal to inspection, nondistended, normoactive bowel sounds present, Soft to palpation, non-tender and no masses PALPATION: Yes Soft to palpation Extremity: COMMON NORMALS: normal to inspection, full ROM and no calf tenderness; negative for no pedal edema NARRATIVE EXTREMITY EXAM: Bilateral pedal edema extending through the leg, right greater than left. Neuro: COMMON NORMALS: patient oriented x3, moves all extremities and no focal motor deficits Psych: COMMON NORMALS: mental status grossly normal, Normal thought process present and cooperative THOUGHT PROCESS: Normal thought process present Skin: COMMON NORMALS: no rashes or lesions noted and no wounds GENERAL SKIN EXAM: no rashes or lesions noted Course 2 Vital Signs: Vital signs: Vital Signs Temperature 99.0 F 07/20/25 18:56 Pulse Rate 82 07/20/25 20:34 Respiratory Rate 16 07/20/25 20:34 Blood Pressure 128/86 07/20/25 20:34 Pulse Oximetry 94 07/20/25 20:34 Oxygen Delivery Me thod Room Air 07/20/25 20:34 MDM - Extremity (Nontraumatic) Medical Decision Making Patient is 60-year-old gentleman with previous DVT, on Eliquis, compliant, reports to ED with increasing edema. He does have extenuating circumstances where he is in class and up 15 minutes at a 1 hour each hour during the day. He was concerned he had another DVT. Ultrasound lower extremity is negative for DVT. Superficial phlebitis noticed. Will place him on antibiotic run with cephalexin since he does not have history of exposure to MRSA. Patient will utilize warm packs to his groin. Lab Data 07/20/25 20:42 07/20/25 20:42 Radiology Impressions Venous Duplex 07/21/25 20:14 IMPRESSION: No evidence of deep vein thrombosis. Laboratory Results WBC 8.70 10^3/uL (3.29-11.43) 07/20/25 20:42 RBC 4.82 10^6/uL (3.85-5.65) 07/20/25 20:42 Hgb 15.30 g/dL (11.27-16.99) 07/20/25 20:42 Hct 45.5 % (37-53) 07/20/25 20: MCV 94.4 fl (82-101) 07/20/25 20: MCH 31.7 pg (27-33) 07/20/25 20: MCHC 33.6 g/dL (30-55) 07/20/25 20: RDW 14.9 % (12.1-15.1) 07/20/25 20: Plt Count 279 10^3/cmm (157-399) 07/20/25 20: MPV 9.9 fL (7.4-10.4) 07/20/25 20:42 Neut % (Auto) 58.1 % 07/20/25 20: Lymph % (Auto) 25.4 % 07/20/25 20: [place] % (Auto) 13.4 % 07/20/25 20: Eos % (Auto) 1.6 % 07/20/25 20: Baso % (Auto) 0.7 % 07/20/25 20: Neut # (Auto) 5.05 10^3/uL (1.8-7.7) 07/20/25 20: Lymph # (Auto) 2.2 10^3/uL (0.8-4.8) 07/20/25 20:42 [place] # (Auto) 1.2 10^3/uL (0.2-0.9) H 07/20/25 20: Eos # (Auto) 0.1 10^3/uL (0.0-0.8) 07/20/25: Baso # (Auto) 0.1 10^3/uL (0.0-0.1) 07/20/25 20: Nucleated RBC % (auto) 0 % 07/20/25: Nucleated RBCs # 0.0 /100WBC 07/20/25 20:42 Sodium 141 mmol/L (136-145) 07/20/25 20:42 Potassium 4.8 mmol/L (3.5-5.1) 07/20/25 20: Chloride 104 mmol/L (98-107) 07/20/25 20: Carbon Dioxide 25 mmol/L (22-29) 07/20/25 20:42 Anion Gap 16.8 (5-19) 07/20/25 20:42 BUN 22 mg/dL (6-20) H 07/20/25 20:42 Creatinine 1.1 mg/dL (0.7-1.2) 07/20/25 20:42 GFR Calculation 68.8 mL/min (90-130) L 07/20/25 20:42 Glucose 114 mg/dL (65-115) 07/20/25 20:42 Calculated Osmolality 296 mOsm/kg (285-295) H 07/20/25 20:42 Calcium 9.0 mg/dL (8.5-10.5) 07/20/25 20:42 Total Bilirubin 0.3 mg/dL (0.15-1.2) 07/20/25 20:42 AST 26 U/L (0-40) 07/20/25 20:42 ALT 27 U/L (0-41) 07/20/25 20:42 Alkaline Phosphatase 60 U/L (40-130) 07/20/25 20:42 Total Protein 7.4 g/dL (6.6-8.7) 07/20/25 20:42 Albumin 4.0 g/dL (3.5-5.2) 07/20/25 20:42 Globulin 3.4 g/dL (1.3-4.6) 07/20/25 20:42 XR interpretation done by ED provider, pending radiology final review ED provider radiology interpretation(s): Superficial phlebitis with lymphadenopathy to right groin Discharge Plan Discharge Patient Disposition: Home Clinical Impression: Inguinal adenopathy Condition: Stable Prescriptions: New cephalexin 500 mg capsule 500 mg PO Q8H 10 Days Qty: 30 0RF No Action lisinopril 20 mg tablet 20 mg PO DAILY Qty: 90 1RF oxycodone-acetaminophen 10-325 mg tablet 1 tab PO TID PRN (Reason: pain) 30 Days Qty: 90 0RF mupirocin [Centany] 2 % ointment 1 applic topical BID Qty: 22 0RF Eliquis 5 mg tablet 5 mg PO BID Qty: 180 2RF amlodipine 5 mg tablet 5 mg PO DAILY Qty: 90 1RF metoprolol succinate 50 mg tablet extended release 24 hr 50 mg PO DAILY Qty: 90 1RF pantoprazole [Protonix] 20 mg tablet,delayed release (DR/EC) 20 mg PO DAILY Qty: 60 1RF atorvastatin 40 mg tablet See Rx Instructions .ROUTE .COMPLEX Qty: 90 1RF Dose Instruction: TAKE 1 TABLET BY MOUTH EVERY DAY Rx Instructions: TAKE 1 TABLET BY MOUTH EVERY DAY cyclobenzaprine 10 mg tablet See Rx Instructions .ROUTE .COMPLEX Qty: 90 1RF Dose Instruction: TAKE 1 TABLET BY MOUTH THREE TIMES A DAY NEEDED FOR MUSCLE SPASM Rx Instructions: TAKE 1 TABLET BY MOUTH THREE TIMES A DAY NEEDED FOR MUSCLE SPASM naproxen [Naprosyn] 500 mg tablet 500 mg PO BID PRN (Reason: pain) Qty: 20 0RF esomeprazole magnesium 40 mg capsule,delayed release(DR/EC) 40 mg PO DAILY Discharge Orders: Discharge ED (Routine); Ordered 07/21/25 Ordered By: Mellisa Randle Referrals: Derek Jackson MD [Primary Care Provider, Internal Medicine] Discharge Diet: Usual diet and Low Salt Discharge Activity: Resume usual activity Patient Instructions: Phlebitis (ED), Patient Portal & Tu Instructions Activity Restrictions/Additional Instructions: - You did not have a DVT. You did have superficial findings in your right groin with lymph nodes. Antibiotics have been sent to your pharmacy that can be started in the morning. Please obtain early in the morning. - Take probiotic or active culture yogurt to avoid infectious diarrhea associated with antibiotics -Warm packs to this area do help with the inflammatory changes. Place this on your right groin 3?5 times a day. You can place a warm washcloth in a Ziploc bag and on top of your groin with a barrier -You will need to follow-up with your doctor regarding today's evaluation. If you have persistent lymph nodes that are inflamed in your groin, additional testing/decision making needs to be done by your doctor. This cannot be done from an emergency room standpoint. - Return to the emergency room for worsening pain, worsening swelling, or fever greater than 100.4 ?F Print Language: Swedish Coding Level of Care Code ED Anesthesiology Physician Assistant for Bernarda Kingsley
[2025-07-20 21:10] LABS: Hematocrit 45.5 % (37-53); Hemoglobin 15.30 g/dL (11.27-16.99); Mean Corpuscular HGB Conc 33.6 g/dL (30-55); Mean Corpuscular Hemoglobin 31.7 pg (27-33); Mean Corpuscular Volume 94.4 fl (82-101); Nucleated Red Blood Cells % 0 %; Platelet Count 279 10^3/cmm (157-399); Red Blood Count 4.82 10^6/uL (3.85-5.65); White Blood Count 8.70 10^3/uL (3.29-11.43)
[2025-07-20 21:28] LABS: Alanine Aminotransferase 27 U/L (0-41); Albumin Level 4.0 g/dL (3.5-5.2); Alkaline Phosphatase 60 U/L (40-130); Anion Gap 16.8 (5-19); Aspartate Amino Transferase 26 U/L (0-40); Blood Urea Nitrogen 22 mg/dL (6-20); Calcium 9.0 mg/dL (8.5-10.5); Carbon Dioxide 25 mmol/L (22-29); Chloride 104 mmol/L (98-107); Creatinine Clr Calc Pharmacy 93.7401; Globulin 3.4 g/dL (1.3-4.6); Glucose 114 mg/dL (65-115); Osmolality Calculated 296 mOsm/kg (285-295); Potassium 4.8 mmol/L (3.5-5.1); Sodium 141 mmol/L (136-145); Total Protein 7.4 g/dL (6.6-8.7)
--- NOTE | 2025-07-21 20:14 | USR_ITS ---
PROCEDURE INFORMATION: Exam: US Duplex Lower Extremity Veins, Bilateral Exam date and time: 07/21/2025 12:19 AM Age: 60 years old Clinical indication: Pain; Leg, lower; Right; Additional info: Pain and edema in leg, lower extremity edema, h/o clot TECHNIQUE: Imaging protocol: Real-time duplex ultrasound of the bilateral extremities with 2-D arzate scale, color Doppler flow and spectral waveform analysis including responses to compression and other maneuvers (when performed) with image documentation. Complete exam focused on the lower extremity veins. COMPARISON: [id number] 03/31/2025 5:24 PM FINDINGS: Right deep veins: Unremarkable. The common femoral, femoral, proximal profunda femoral and popliteal veins are patent without thrombus. Normal Doppler waveforms. Normal compressibility and/or augmentation response. Left deep veins: Unremarkable. The common femoral, femoral, proximal profunda femoral and popliteal veins are patent without thrombus. Normal Doppler waveforms. Normal compressibility and/or augmentation response. Superficial veins: Greater saphenous veins at the saphenofemoral junctions are patent bilaterally without thrombus. Soft tissues: Soft tissue edema is noted. Enlarged inguinal lymph nodes, better characterized on prior CT from 06/05/2025. US/[id number] IMPRESSION: No evidence of deep vein thrombosis.
== END 2025-07-21 00:49 | disposition home or self-care (01) ==
PROVIDERS: Emergency Provider Physician Assistant; PCP Internal Medicine
DX: R59.0 Localized enlarged lymph nodes (principal); Z79.01 Long term (current) use of anticoagulants; I10 Essential (primary) hypertension
CPT/HCPCS: 36415; 80053; 85025; 93970; 99284

== ENCOUNTER 2025-07-30 21:42 | Inpatient (IN) | payer OTHER, MEDICAID, SELFPAY ==
[2025-07-30 21:53] VITALS: BP 135/88; PULSE 102; RESP 20; TEMP 36.8; O2SAT 96; BMI 39.0
--- OUTSIDE RECORDS SUMMARY | 2025-07-30 21:55 | XMS_ITS | Encounter Summary ---
[facility] Address [address] [place] [address] Care Team Providers Care Ring Stamper Name Role Phone Unavailable Primary Care Provider Unavailabl e Reason for Visit * Reason Onset Date Comments Medication Problem 06/27/2025 Medication Ad herence Review Encounter Details Date Type Department Care Team ([facility] Contact Info) Description 06/27/2025 Patient Outreach [facility] Quality And Reliability Engineer Management [id number], [address] [place] [address] Katty Harmon Medication Problem (Medication Adherence Review [...] 65 %. Left Voicemail with callback number ([phone]) to discuss medication adherence and ensure patient is tolerating all medications without adverse events or barriers to medication adherence. Katty Harmon Specialty Stock Fitter [facility] * Telephone Encounter - Katty [...] 65 %. Left Voicemail with callback number ([phone]) to discuss medication adherence and ensure patient is tolerating all medications without adverse events or barriers to medication adherence. Katty Harmon Specialty Stock [employer] [facility] documented in this encounter Plan of Treatment Not on file documented as of this encounter Visit Diagnoses Not on filedocumented in this encounter
--- OUTSIDE RECORDS SUMMARY | 2025-07-30 21:55 | XMS_ITS | Data Portability ---
Author Organization [facility] Address [address] [address] Care Team Providers Care Parachute Line Tier Name Role Phone DANAE ENRIQUE Primary Care Provider Assessment No assessment recorded. Plan of Treatment Reminders Order Date Submit Date Provider Last Modified By Organization Details Last Modified Time Details Appointments None recorded. Lab HbA1c (hemoglobin A1c), blood [email or web address] [facility], [address], [facility] 1, [place], [address], 09:57:39 CMP, serum or plasma 2024 025 [employer] [facility], [address] [place] [address] 248, [address] [place], [address], 05:50:08 lipid panel, blood 2024 025 [email or web address] [employer] [facility], [address] [place] [address] 248, [address] [place], [address], 5 09:57:39 CBC 2024 025 [facility], [address], [facility] 1, [place], [address], 11:38:29 Referral ophthalmolo gist referral 2024 025 [email or web address] 2 Félix Ramos MD, [address], [place], [address], 17:07:45 Procedures None recorded. Surgeries None recorded. Imaging None recorded. Medication Orders None recorded. Patient TargetsNo targets recorded. Patient InstructionsNo instructions recorded. Reason for Referral Team Facilitator Referral for Visual impairment Referring Physician: Danae Enrique, Family Medicine, Encounter Date: 07/11/2025 Results Created Date Observation Date Name Description Value Unit Range Abnormal Flag Note LastModifiedBy Organization Detail LastModifiedTime 07/11/2007/11/2025 CBC WBC 9.2 x10 4.5-10 .5 Not Available [facility] [address] [facility] 1, [place], [address], 07/11/2025 11:38:29 07/11/2007/11/2025 CBC RBC 5.29 x10 4.30-5 .90 Not Available [facility] [address] [facility] 1, [place], [address], 07/11/2025 11:38:29 07/11/2007/11/2025 CBC HGB 16.5 g/dL 13.5-1 8.0 Not Available [facility] [address] [facility], [place], [address], 07/11/2025 11:38:29 07/11/2007/11/2025 CBC HCT 51.4 % 35.0-6 0.0 Not Available [facility] [address] [facility], [place], [address], 07/11/2025 11:38:29 07/11/2007/11/2025 CBC MCV 97.1 fL 80.0-9 9.9 Not Available [facility] [address] [facility], [place], [address], 07/11/2025 11:38:29 07/11/20 25 07/11/2025 CBC MCH 31.3 pg 27.0-3 2.0 Not Available [facility] [address] [facility] 1, [place], [address], 07/11/2025 11:38:29 07/11/20 25 07/11/2025 CBC MCHC 32.2 g/dL 32.0-3 6.0 Not Available [facility] [address] [facility], [place], [address], 07/11/2025 11:38:29 07/11/2007/11/2025 CBC RDW 14.5 % 11.5-1 4.5 Not Available [facility] [address] [facility], [place], [address], 07/11/2025 11:38:29 07/11/2007/11/2025 CBC plt 291.1 x10 150.0- 451.0 Not Available [facility] [address] [facility], [place], [address], 07/11/2025 11:38:29 07/11/2007/11/2025 CBC lymphocytes % 25.6 % 20.0-5 0.0 Not Available [facility] [address] [facility] 1, [place], [address], 07/11/2025 11:38:29 07/11/20 25 07/11/2025 CBC granulcytes % 57.7 % 30.0-7 0.0 Not Available [facility] [address] [facility] 1, [place], [address], 07/11/2025 11:38:29 07/11/20 25 07/11/2025 CBC monocytes % 14.3 % 2.0-16 .0 Not Available [facility] [address] [facility], [place], [address], 07/11/2025 11:38:29 07/11/20 25 07/11/2025 CBC granulcytes# 5.3 x10 Not Yamila ilable [facility] [address] [facility] 1, [place], [address], 07/11/2025 11:38:29 07/11/20 25 07/11/2025 CBC lymphocytes # 2.4 x10 Not Available [facility] [address] [facility] 1, [place], [address], 07/11/2025 11:38:29 07/11/20 25 07/11/2025 CBC monocytes # 1.3 x10 Not Avai lable [facility] [address] [address], [place], [address], 07/11/2025 11:38:29 07/11/20 25 07/11/2025 HBA1C hemaglobin A1C 6.0 4.2-6. 5 Not Available [facility] [address] [address], [place], [address], 07/11/2025 13:54:09 07/11/20 25 07/12/2025 LIPID PANEL , STAND FLAVIA cholesterol, total 275 mg/dL <200 high Not Available [employer] [facility] [address] [place], [address], 07/12/2025 05:50:07 07/11/20 25 07/12/2025 LIPID PANEL , STAND FLAVIA HDL cholesterol 43 mg/dL > or = 40 normal Not Available [facility] [address] [place], [address], 07/12/2025 05:50:07 07/11/20 25 07/12/2025 LIPID PANEL , STAND FLAVIA triglyceride s 327 mg/dL <150 high If a non-f astin g speci men was colle cted, consi abram repea t trigl yceri de testi ng on a fasti ng speci men if clini rojas indic ated. Vinny boswell et al. J. of Clin. Lipid ol. 2015; 9:129 -169. Not Available [facility] [address] [place] [address], [address], 07/12/2025 05:50:07 07/11/20 25 07/12/2025 LIPID PANEL , STAND FLAVIA LDL-choleste rol 177 mg/dL _(jose de jesus c) high Refer ence range : <100 Julee able range <100 mg/dL for prima ry preve ntion ; <70 mg/dL for patie nts with CHD or diabe tic patie nts with > or = 2 CHD risk facto rs. LDL-C is now calcu lated using the Maria R n-Hop kins calcu latio n, which is a valid ated novel metho d provi ding devon r accur acy than the Fried marylin equat ion in the estim ation of LDL-C . Maria R naqvi SS et al. CASEY. 2013; 310(1 9): 2061- 2068 (http ://ed ucati on.Qu Music Messenger (MM). com/f aq/FA Q164) Not Available [address], [address], 07/12/2025 05:50:07 07/11/2007/12/2025 LIPID PANEL , STAND FLAVIA chol/HDLC ratio 6.4 (calc ) <5.0 high Not Available [facility] [address] [place] [address], [address], 07/12/2025 05:50:07 07/11/20 25 07/12/2025 LIPID PANEL , STAND FLAVIA non HDL cholesterol 232 mg/dL _(jose de jesus c) <130 high Non-H DL level > or = 220 is very high and may indic ate anderson ic famil ial hyper siddhartha stero lemia (FH). Clini jose de jesus asses sment and measu remen t of blood lipid level s shoul d be consi dered for all first -degr ee relat popeye of patie nts with an FH diagn osis. For patie nts with diabe hi plus 1 major ASCVD risk facto r, treat ing to a non-H DL-C goal of <100 mg/dL (LDL- C of <70 mg/dL ) is myesha licona optio n. Not Available [address] [address] [place], [address], 07/12/2025 05:50:07 07/11/20 25 07/12/2025 COMPR EHENS TOMMY METAB OLIC PANEL glucose 86 mg/dL 65-99 normal Fasti ng refer ence inter palomo Not Available [address] [place], [address], 07/12/2025 05:50:08 07/11/2007/12/2025 COMPR EHENS TOMMY METAB OLIC PANEL urea nitrogen (BUN) 17 mg/dL 7-25 normal Not Available [address] [address] [place], [address], 07/12/2025 05:50:08 07/11/20 25 07/12/2025 COMPR EHENS TOMMY METAB OLIC PANEL creatinine 1.02 mg/dL 0.70-1 .30 normal Not Available [address] [address] [place], [address], 07/12/2025 05:50:08 07/11/20 25 07/12/2025 COMPR EHENS TOMMY METAB OLIC PANEL eGFR 85 mL/mi n/1.7 3m2 > or = 60 normal Not Available [address], [address], 07/12/2025 05:50:08 07/11/2007/12/2025 COMPR EHENS TOMMY METAB OLIC PANEL BUN/creatini ne ratio SEE NOTE: (calc ) 6-22 Not Repor montse: BUN and Creat inine are withi n refer ence range . Not Available [facility] - [address], [address], 07/12/2025 05:50:08 07/11/2007/12/2025 COMPR EHENS TOMMY METAB OLIC PANEL sodium 136 mmol/ L 135-14 6 normal Not Available [address], [address], 07/12/2025 05:50:08 07/11/2007/12/2025 COMPR EHENS TOMMY METAB OLIC PANEL potassium 5.2 mmol/ L 3.5-5. 3 normal Not Available [address], [address], 07/12/2025 05:50:08 07/11/2007/12/2025 COMPR EHENS TOMMY METAB OLIC PANEL chloride 101 mmol/ L 98-110 normal Not Available [address], [address], 07/12/2025 05:50:08 07/11/2007/12/2025 COMPR EHENS TOMMY METAB OLIC PANEL carbon dioxide 30 mmol/ L 20-32 normal Not Available [address], [address], 07/12/2025 05:50:08 07/11/2007/12/2025 COMPR EHENS TOMMY METAB OLIC PANEL calcium 9.6 mg/dL 8.6-10 .3 normal Not Available [address], [address], 07/12/2025 05:50:08 07/11/2007/12/2025 COMPR EHENS TOMMY METAB OLIC PANEL protein, total 7.4 g/dL 6.1-8. 1 normal Not Available [address], [address], 07/12/2025 05:50:08 07/11/2007/12/2025 COMPR EHENS TOMMY METAB OLIC PANEL albumin 4.2 g/dL 3.6-5. 1 normal Not Available [address], [address], 07/12/2025 05:50:08 07/11/2007/12/2025 COMPR EHENS TOMMY METAB OLIC PANEL globulin 3.2 g/dL_ (calc ) 1.9-3. 7 normal Not Available [address], [address], 07/12/2025 05:50:08 07/11/2007/12/2025 COMPR EHENS TOMMY METAB OLIC PANEL albumin/glob ulin ratio 1.3 (calc ) 1.0-2. 5 normal Not Available [address], [address], 07/12/2025 05:50:08 07/11/2007/12/2025 COMPR EHENS TOMMY METAB OLIC PANEL bilirubin, total 0.5 mg/dL 0.2-1. 2 normal Not Available [address], [address], 07/12/2025 05:50:08 07/11/2007/12/2025 COMPR EHENS TOMMY METAB OLIC PANEL alkaline phosphatase 52 U/L 35-144 normal Not Available [address], [address], 07/12/2025 05:50:08 07/11/2007/12/2025 COMPR EHENS TOMMY METAB OLIC PANEL AST 27 U/L 10-35 normal Not Available [address], [address], 07/12/2025 05:50:08 07/11/20 25 07/12/2025 COMPR EHENS TOMMY METAB OLIC PANEL ALT 39 U/L 9-46 normal Not Available [address], [address], 07/12/2025 05:50:08 Result Notes None recorded. Problems Name Problem SNOMED Code Status Onset Date Resolution Date Notes Provider Name and Address Organization Details Recorded Time Tear of medial meniscus of left knee joint Active 2024 Danae Enrique MD [address] [place] [address], [phone], [facility] 10:33:40 Chronic low back pain 726485311 Active 2024 Danae Enrique MD [address] [place] [address], [address], [facility] 10:34:05 History of methampheta mine abuse [id number] 4101 Active 2024 Danae Enrique MD [address] [place] [address], [address], [facility] 10:35:39 Essential hypertensio n 83292517 Active 2024 Danae Enrique MD [address] [place] [address], [address], [facility] 10:35:48 Visual impairment 727978789 Active 2024 Danae Enrique MD [address] [place] [address], [address], [facility] 10:36:27 Prediabetes 788645709 Active 2024 Danae Enrique MD [address] [place] [address], [address], [facility] 10:38:29 Problem Notes None recorded. Medical Equipment None Reported. Allergies No known drug allergies Medications Name Sig Start Date Stop Date Status Note LastModified by Organization Details LastModified Time fluoxetine 40 mg capsule TAKE ONE (1) CAPSULE BY MOUTH ONCE DAILY 07/11 completed Not Available Not Available Not Available cyclobenzap rine 10 mg tablet TAKE 1 TABLET BY MOUTH THREE TIMES A DAY NEEDED FOR MUSCLE SPASM active Not Available Not Available No t Available atorvastati n 40 mg tablet TAKE 1 TABLET BY MOUTH EVERY DAY active Not Available Not Available No t Available venlafaxine ER 37.5 mg capsule,ext ended release 24 hr TAKE 1 CAPSULE BY MOUTH EVERY DAY 07/11 completed Not Available Not Available Not Available gabapentin 600 mg tablet TAKE 1 TABLET THREE TIMES DAILY FOR 30 DAYS active Not Available Not Available No t Available metoprolol succinate ER 50 mg tablet,exte nded release 24 hr TAKE 1 TABLET BY MOUTH EVERY DAY active Not Available Not Available No t Available sulfamethox azole 400 mg-trimetho prim 80 mg tablet TAKE 1 TABLET BY MOUTH TWICE A DAY FOR 7 DAYS 07/11 completed Not Available Not Available Not Available lisinopril 20 mg tablet TAKE 1 TABLET BY MOUTH EVERY DAY active Not Available Not Available No t Available prednisone 20 mg tablet TAKE 2 TABLETS ORALLY DAILY FOR 5 DAYS 07/11 completed Not Available Not Available Not Available hydroxyzine HCl 50 mg tablet TAKE 1 TABLET BY MOUTH TWICE A DAY NEEDED FOR ANXIETY 07/11 completed Not Available Not Available Not Available amlodipine 5 mg tablet TAKE 1 TABLET BY MOUTH EVERY DAY active Not Available Not Available No t Available sulfamethox azole 800 mg-trimetho prim 160 mg tablet TAKE 1 TABLET BY MOUTH TWICE A DAY FOR 10 DAYS 07/11 completed Not Available Not Available Not Available amoxicillin 500 mg tablet TAKE 1 TABLET BY MOUTH 3 TIMES A DAY 07/11 completed Not Available Not Available Not Available pantoprazol e 20 mg tablet,norberto yed release TAKE 1 TABLET ORALLY DAILY active Not Available Not Available No t Available oxycodone-a cetaminophe n 10 mg-325 mg tablet TAKE 1 TABLET BY MOUTH 3 TIMES A DAY NEEDED FOR PAIN active Not Available Not Available No t Available baclofen 10 mg tablet Take 1 tablet 3 times a day by oral route as needed. active Not Available Not Available No t Available esomeprazol e magnesium 40 mg capsule,del ayed release TAKE 1 CAPSULE BY MOUTH EVERY DAY active Not Available Not Available No t Available diclofenac sodium 75 mg tablet,norberto yed release TAKE 1 TABLET ORALLY EVERY 12 HOURS NEEDED FOR PAIN active Not Available Not Available No t Available hydroxyzine HCl 25 mg tablet TAKE 1 TABLET BY MOUTH TWICE A DAY NEEDED FOR ANXIETY 07/11 completed Not Available Not Available Not Available mupirocin 2 % topical ointment APPLY TO AFFECTED AREA TWICE A DAY active Not Available Not Available No t Available mirtazapine 15 mg tablet Take 1 tablet every day by oral route at bedtime. active Not Available Not Available No t Available gabapentin 100 mg capsule TAKE 1 CAPSULE BY MOUTH EVERY 8 HOURS FOR 7 DAYS active Not Available Not Available No t Available lisinopril 40 mg tablet TAKE 1/2 TABLET BY MOUTH EVERY DAY 07/11 completed Not Available Not Available Not Available fluticasone propionate 50 mcg/actuati on nasal spray,suspe nsion USE 2 SPRAYS IN EACH NOSTRIL DAILY 07/11 completed Not Available Not Available Not Available sertraline 50 mg tablet TAKE 1 TABLET BY MOUTH EVERY DAY 07/11 completed Not Available Not Available Not Available doxycycline hyclate 100 mg tablet TAKE 1 TABLET BY MOUTH TWICE A DAY FOR 7 DAYS 07/11 completed Not Available Not Available Not Available loratadine 10 mg tablet TAKE 1 TABLET BY MOUTH EVERY DAY NEEDED FOR SINUS SYMPTOM 07/11 completed Not Available Not Available Not Available naproxen 500 mg tablet TAKE 1 TABLET BY MOUTH TWICE A DAY NEEDED FOR PAIN active Not Available Not Available No t Available amoxicillin 875 mg-potassiu m clavulanate 125 mg tablet TAKE 1 TABLET BY MOUTH TWICE A DAY FOR 7 DAYS 07/11 completed Not Available Not Available Not Available escitalopra m 20 mg tablet TAKE 1 TABLET BY MOUTH EVERY DAY 07/11 completed Not Available Not Available Not Available bupropion HCl XL 300 mg 24 hr tablet, extended release TAKE 1 TABLET BY MOUTH IN THE MORNING active Not Available Not Available No t Available duloxetine 30 mg capsule,del ayed release TAKE ONE (1) CAPSULE BY MOUTH TWICE DAILY 07/11 completed Not Available Not Available Not Available oxycodone 10 mg tablet TAKE ONE TABLET ORALLY EVERY 6 HOURS NEEDED FOR PAIN FOR 4 WEEKS, MAX DAILY DOSE: 6 active Not Available Not Available No t Available Eliquis 5 mg tablet TAKE 1 TABLET BY MOUTH TWICE A DAY active Not Available Not Available No t Available Vitals Date Recorded Body height Body mass index (BMI) Body weight Body temperature Oxygen saturation Oxygen saturation in Arterial blood by Pulse oximetry Heart rate Systolic And Diastolic Provider Name and Address Organization Details Last Updated DateTime 180.34 cm 36.8 kg/m2 678907. 39 g 97.6 [degF] 96 % 96 % 83 /min 122/88 mm[Hg] [facility] 10:08:12 Social History Question Answer Notes LastModified by [employer] Details LastModified Time Tobacco Smoking Status Never Smoker [facility] 07/11/2025 10:24:45 What Was The Date Of Your Most Recent Tobacco Screening? 07/11/2025 Information not available 07/11/2025 Sex: Unknown Functional Status Question Answer Note LastModified by [employer] Details LastModified Time Do you use any illicit or recreational drugs? No [email or web address] Information not available 07/11/2025 What is your level of alcohol consumption? None [email or web address] Information not available 07/11/2025 Mental Status None recorded. Family History Nothing Reported. Medical History No medical history recorded. Immunizations Vaccine Type Date Status Note Provider Nam e and Address Organization Details Recorded Time Influenza, split virus, quadrivalent, PF 3 completed Not Available [facility] 07/11/2025 09:53:17 zoster recombinant 3 completed Not Available [facility] 07/11/2025 09:53:17 Influenza, MDCK, quadrivalent, PF 3 completed Not Available [facility] 07/11/2025 09:53:17 zoster recombinant 3 completed Not Available [facility] 07/11/2025 09:53:17 Past Encounters Encounter ID Performer Location Encounter Start Date Encounter Closed Date Diagnosis/Indication Diagnosis SNOMED-CT Code Diagnosis ICD10 Code Diagnosis IMO Codes Diagnosis Note [id number] Danae nErique MD [facility] [address] [place] [phone] 07/11/2025 09:52:58 07/11/2025 10:49:52 Tear of medial meniscus of left knee joint 1482241371 7104 S83.242D [id number] Patient has a known tear of his meniscus of his left knee. The patient was scheduled to have surgery but was not able to proceed. The patient would like to get reschedule d. Encouraged the patient to call the orthopedic physician to proceed. Will send new referral if needed. Chronic low back pain 27 [id number] M54.40 G89.29 [id number] The patient is being scheduled for physical therapy and that would be recommende d first-line treatment. History of methamphetamine abuse [id number] 8468339 F15.11 5462434 Continue with current behavioral health plan for treatment. Essential hypertension 70397923 I10 38416 Stable on current medication s. Check labs today. Visual impairment 714508 003 H54.7 [id number] Patient is concerned about his vision so we will go ahead and send referral to ophthalmnoemi velasco. Prediabetes 387743227 R7 3.03 [id number] Patient reports a history of prediabete s so we will include an A1c with his lab work today. Health Concerns Section Related Observation LastModified by Organization Detai ls LastModified Time None Recorded Concern Status LastModified by Organization Details LastModified Time None Recorded Advance Directives Directive None Recorded Payers Insurance Date Sequence Insurance Name Policy Number Policy Rodas Covered Member ID Rodas Member ID Guarantor Name 07/18/2025 1 HARJINDER SHELTON [facility] (EPO[facility] Wyatt Hoffman [id number] Wyatt Hoffman Notes Date Note Type Note Provider Name and Address Organization Details Recorded Time 07/11/2025 text/html Annual WellnessR eported by PatientSocial/Behaviora l HistoryFor fracture risk, patient reportshistory of fractures. For physical activity, patient reportsdoes not exercise on a regular basis. For diet and nutrition, patient reportshealthy diet. For additional lifestyle factors, patient reportsno tobacco useandno alcohol intake.Mental Status:For depression risk, patient reportssignificant changes in weight,sleep disturbances or insomnia,agitated, andhistory of depressionbut reportsnever feels sad, empty, or tearfulandno loss of interest in activities.Functional AbilityFor vision, patient reportsworsening. For hearing, patient reportsno loss of hearing. Pt here to establish care Pt states he has history of a blood clot in his right leg,His left knee has torn miniscus that he would like to seek treatment for. He has surgery date set but was incarcirated.He has back pain that he had treated previously by surgeon. Dr. Be. The pt is left with pain of 7/10 on a daily. When pt sits for an hour he has to stand up to tolerate the pain.Pt is seeking treatment at [facility] for Meth abuse. Danae Enrique MD [address] [place] [address], [phone], [facility], [place] 07/16/2025 11:36:47
--- OUTSIDE RECORDS SUMMARY | 2025-07-30 21:55 | XMS_ITS | Clinical Summary ---
Author Organization [facility] Address [address] [place] [address] Phone Care Team Providers Care Level Vial Setter Name Role Phone Unavailable Primary Care Provider [...] Department Care Team Description 06/27/[address] [facility] Financial Reporting Accountant Management [address] [facility], [address] [place] [address] Katty Harmon Medication Problem (Medication Adherence Review [...] Comments Blood Pressure 121/88 12/02/2023 3:04 PM RN ADVICE Pulse 79 12/02/2023 3:04 PM RN ADVICE Temperature 36.1 C (96.9 F) 12/02/2023 3:04 PM RN ADVICE Respiratory Rate 16 12/02/2023 3:04 PM RN ADVICE Oxygen Saturation 94% 12/02/2023 3:04 PM RN ADVICE Inhaled Oxygen Concentration - - Weight 104.3 kg (230 lb) 12/02/2023 1:29 PM RN ADVICE Height 180.3 cm (5' 11 ) 12/02/2023 1:29 PM RN ADVICE Body Mass Index 32.08 12/02/2023 1:29 PM RN ADVICE Plan of Treatment Health Maintenance Due Date [...] (#1) 2025 Medical Devices Implanted Type Area Senior Quality Assurance Analyst Device Identifier Shelf Expiration Date Model / Serial / Lot Lens Iol [employer]nis [employer] 21.0 [id number] - [id number] Implanted:Qty: 1 on 10/07/2023 by Ace Erwin MD at [facility] Lens Left: Eye [employer] 07/28/2026 [id number] / [id number] / Lens Iol Tecnis Eyhance 21.0 [id number] - [id number] Implanted:Qty: 1 on 12/02/2023 by Ace Erwin MD at [facility] Lens Right: Eye [employer] 06/28/2026 [id number] / [id number] / Insurance ([place]) [id number] [facility] [place]I [id number] [facility] [employer] MEDICAID [facility]
--- OUTSIDE RECORDS SUMMARY | 2025-07-30 21:55 | XMS_ITS | Patient Health Record ---
Author Organization [facility] Address [address] [place] [address] Care Team Providers Care Marketing Operations Intern Name Role Phone Suleiman Min Primary Care Provider [phone] Reason For Referral No Information Medications Medication [...] Problem Status W/U Status Risk Notes Problem Joint pain (69669293) Arthralgia , unspecified joint (M25.50) Active confirmed Problem Hypercholesterolemia (83673634) Hypercholesterolemia (E78.00) Active confirmed Problem Atrial fibrillation (99444659) Atrial fibrillation, unspecified type (I48.91) Active confirmed Problem Essential hypertension (16593703) Hypertension, unspecified type (I10) Active confirmed Problem Gastroesophageal reflux disease (133888592) GERD without esophagitis (K21.9) Active confirmed Plan Of Treatment No Information Medications Administered Medication Instructions Date of Administration Dosage Notes Rocephin 02/24/2023 500 mg [facility]#[id number] -11 Medical (General) History Medical History History ICD Code Arthritis migraine headaches Back Trouble High Blood Pressure
[2025-07-30 22:01] VITALS: BP 111/72; PULSE 103; RESP 19; TEMP 37.1; O2SAT 93
[2025-07-30 22:11] LABS: Hematocrit 41.0 % (37-53); Hemoglobin 13.80 g/dL (11.27-16.99); Mean Corpuscular HGB Conc 33.7 g/dL (30-55); Mean Corpuscular Hemoglobin 31.3 pg (27-33); Mean Corpuscular Volume 93.0 fl (82-101); Nucleated Red Blood Cells % 0 %; Platelet Count 206 10^3/cmm (157-399); Red Blood Count 4.41 10^6/uL (3.85-5.65); White Blood Count 7.20 10^3/uL (3.29-11.43)
[2025-07-30 22:30] LABS: Alanine Aminotransferase 37 U/L (0-41); Albumin Level 3.9 g/dL (3.5-5.2); Alkaline Phosphatase 60 U/L (40-130); Anion Gap 13.8 (5-19); Aspartate Amino Transferase 65 U/L (0-40); Blood Urea Nitrogen 20 mg/dL (6-20); Calcium 8.9 mg/dL (8.5-10.5); Carbon Dioxide 21 mmol/L (22-29); Chloride 105 mmol/L (98-107); Creatinine Clr Calc Pharmacy 101.0477; Globulin 3.2 g/dL (1.3-4.6); Glucose 130 mg/dL (65-115); Osmolality Calculated 286 mOsm/kg (285-295); Potassium 3.8 mmol/L (3.5-5.1); Sodium 136 mmol/L (136-145); Total Protein 7.1 g/dL (6.6-8.7)
[2025-07-30 22:40] LABS: Acetaminophen < 5.0 ug/mL (10-30); Alcohol Level < 10 mg/dL (0-10); Salicylate < 0.3 mg/dL (3-10)
--- NOTE | 2025-07-30 22:41 | ED.C_ITS ---
Documented by User: WENDY Danielson 07/30/25 22:59 HPI - Psych 2 General: Chief Complaint: Psychiatric Symptoms Stated Complaint: Meth induced delusions Time Seen by Provider: 07/30/25 21:54 Source: patient Mode of arrival: ambulatory Limitations: no limitations History of Present Illness: Patient is a 60-year-old male with past medical history of substance abuse who presents to the emergency department due to aggressive behavior and hallucinations. He is brought in by staff from [facility], where he has been staying following rehab stay at [facility]. Staff from [facility] to [facility] says that he, for the past 24 hours, has been very aggressive with other members, threatening to harm them and that he has appeared to relapse on meth use. He has not made any statements of hurting himself, and has not had any specific method of hurt anyone else, however they are concerned due to the nature of his threats and feel that he is not safe to be in their care. Patient here is calm and cooperative, he is stating that he does not feel SI or HI at this time and denies any of this happening. When I ask him if he is having any hallucinations, he tells me I am having hallucinations because they told me to say that. He states that he does want back in a rehab admits to methamphetamine use, states he does not know where else to go. I did speak to staff, they state that they to did not know where else to take the patient as he was showing increasing signs of instability this evening. MD complaint: other (Aggressive behavior/methamphetamine abuse) Onset (ago): day(s) Duration: constant History of same: Yes Associated symptoms: Deny auditory hallucinations, visual hallucinations, depression or suicidal ideation Related Data Home Medications ?Medication ?Instructions ?Recorded ?Confirmed esomeprazole magnesium 40 mg 40 mg PO DAILY 06/06/25 0 06/06/25 capsule,delayed release Previous Rx's ?Medication ?Instructions ?Recorded apixaban 5 mg tablet (Eliquis) 5 mg PO BID #180 tabs 0 05/04/24 lisinopril 20 mg tablet 20 mg PO DAILY #90 tabs 04/26 amlodipine 5 mg tablet 5 mg PO DAILY #90 tabs 01/23 metoprolol succinate 50 mg 50 mg PO DAILY #90 tabs 12/27 tablet,extended release 24 hr oxycodone-acetaminophen 10 mg-325 1 tab PO TID PRN hugo n 30 days #90 03/23/25 mg tablet tabs mupirocin 2 % topical ointment 1 applic topical BID #2 2 grams 03/28/25 (Centany) pantoprazole 20 mg tablet,delayed 20 mg PO DAILY #60 t abs 04/28/25 release (Protonix) atorvastatin 40 mg tablet See Rx Instructions .Route 0 05/19/25 .COMPLEX #90 tabs cyclobenzaprine 10 mg tablet See Rx Instructions .Rout e 05/22/25 .COMPLEX #90 tabs naproxen 500 mg tablet (Naprosyn) 500 mg PO BID PRN pa in #20 tabs 06/05/25 cephalexin 500 mg capsule 500 mg PO Q8H 10 days #30 ca ps 07/21/25 Allergies Allergy/AdvReac Type Severity Reaction Status Date / Time No Known Allergies Allergy Verified 07/20/25 19:01 Review of Systems 2 General: Reports: 10 or more systems reviewed and unremarkable except in HPI and below Const: Denies: fever(s), chills or fatigue Eyes: Denies: change in vision ENMT: Denies: throat pain, ear or mastoid pain or nasal discharge Card: Denies: chest pain, palpitations, swelling of feet/ankles or lightheadedness Resp: Denies: dyspnea, productive cough or wheezing GI: Denies: abdominal pain, nausea, vomiting, diarrhea or constipation : Denies: flank pain, difficulty urinating, dysuria or urinary frequency Musc: Denies: neck pain, back pain or joint pain Skin/Breast: Denies: rash Neuro: Denies: headache(s), numbness in extremities or weakness in extremities Psych: Reports: irritability and other (Substance abuse); Denies: anxiety, depression, visual hallucinations, auditory hallucinations, tactile hallucinations or suicidal ideation PFSH ED 2 PFSH: Medical History Paroxysmal atrial fibrillation Methamphetamine abuse, episodic Leg edema, right Sleep apnea Left knee pain AMBROSE positive Hypertension Hypercholesteremia Lupus History of blood clots Heartburn History of traumatic head injury Surgical History Hx of cervical spine surgery Hx of tracheostomy Hx of colonoscopy 2019 History of esophagogastroduodenoscopy (EGD) Family History Sister Cancer lung, hodgkins lymphoma Other CAD (coronary artery disease) Chronic kidney disease (CKD) Hyperlipidemia Hypertension Lung disease Stroke Denies family history of Diabetes Clotting disorder Dementia Psychiatric illness Anesthesia complication Bleeding disorder Social History Smoking and tobacco/nicotine status: never used tobacco/nicotine Alcohol intake: never Substance/Drug Use: current Other substance/drug use details: Intermittent last was 5 weeks before 03/31/2025 Additional social history: Patient wants full code as discussed with Ronny Lee MD 03/31/2025 Lives independently: Yes Current occupational status: unemployed and disabled 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 Special lena needs: No Agree to transfusion: Yes Physical Exam 2 Const: COMMON NORMALS: no acute distress, patient oriented x3 and no limitations GENERAL APPEARANCE: cooperative, comfortable and well developed ORIENTATION/CONSCIOUSNESS: Yes awake, Yes oriented to person, Yes oriented to place and Yes oriented to time HENMT: COMMON NORMALS: normocephalic, atraumatic and hearing grossly normal bilaterally HEAD & SCALP: normocephalic and atraumatic Eye: COMMON NORMALS: Equal, round and reactive pupils present, EOMs intact bilaterally and conjunctivae normal CONJUNCTIVA: Yes conjunctivae normal P UPIL: Yes Equal, round and reactive pupils present Neck/C-Spine: COMMON NORMALS: full ROM, supple and no JVD Resp: COMMON NORMALS: normal respiratory effort, No retractions, No use of accessory muscles and clear to auscultation bilaterally AUSCULTATION: clear to auscultation bilaterally Cardio: COMMON NORMALS: no JVD, regular rate, regular rhythm, No clicks present (Cardio), No murmurs present (Cardio) and No rub (Cardio) RATE: r egular rate RHYTHM: regular rhythm Extremity: COMMON NORMALS: normal to inspection, full ROM and capillary refill normal Neuro: COMMON NORMALS: patient oriented x3, moves all extremities, no focal motor deficits and no sensory deficits noted SENSORIUM/ORIENTATION: Yes oriented to person, Yes oriented to place and Yes oriented to time Psych: COMMON NORMALS: mental status grossly normal and Normal thought process present APPEARANCE: Yes disheveled ATTITUDE: Yes paranoid A CTIVITY/MOTOR BEHAVIOR: Yes psychomotor agitation SPEECH: Yes soft and Yes Pressured speech present MOOD & AFFECT: Yes Flat affect present THOUGHT PROCESS: Normal thought process present THOUGHT CONTENT: No Suicidality present, No Homicidality present and No Hallucination(s) present Skin: COMMON NORMALS: no rashes or lesions noted GENERAL SKIN EXAM: no rashes or lesions noted Course 2 Vital Signs: Vital signs: Vital Signs Temperature 98.8 F 07/30/25 22:01 Pulse Rate 103 H 07/30/25 22:01 Respiratory Rate 19 H 07/30/25 22:01 Blood Pressure 111/72 07/30/25 22:01 Pulse Oximetry 93 07/30/25 22:01 Oxygen Delivery Me thod Room Air 07/30/25 22:01 [facility] - Psych Medical Decision Making This patient presented with staff from [facility], where he was staying following rehab at [facility]. There is reports that he was aggressive with other members, and was threatening violence. This was exacerbated by meth use of which she has a history of. Speaking with staff, they do not feel safe with the patient in their care, patient stating he wants to go back to rehab, denied SI/HI and was not confirmatory on hallucinations here in the ED. However spoke to Dr. Callahan who is agreeing to accept the patient into the neuropsychiatric unit for further evaluation. Lab Data 07/30/25 22:04 07/30/25 22:04 Laboratory Results WBC 7.20 10^3/uL (3.29-11.43) 07/30/25 22:04 RBC 4.41 10^6/uL (3.85-5.65) 07/30/25 22:04 Hgb 13.80 g/dL (11.27-16.99) 07/30/25 22:04 Hct 41.0 % (37-53) 07/30/25 22:04 MCV 93.0 fl (82-101) 07/30/25 22:04 MCH 31.3 pg (27-33) 07/30/25 22:04 MCHC 33.7 g/dL (30-55) 07/30/25 22:04 RDW 14.3 % (12.1-15.1) 07/30/25 22:04 Plt Count 206 10^3/cmm (157-399) 07/30/25 22:04 MPV 9.9 fL (7.4-10.4) 07/30/25 22:04 Neut % (Auto) 63.0 % 07/30/25 22:04 Lymph % (Auto) 19.7 % 07/30/25 22:04 [place] % (Auto) 14.0 % 07/30/25 22:04 Eos % (Auto) 2.2 % 07/30/25 22:04 Baso % (Auto) 0.8 % 07/30/25 22:04 Neut # (Auto) 4.53 10^3/uL (1.8-7.7) 07/30/25 22:04 Lymph # (Auto) 1.4 10^3/uL (0.8-4.8) 07/30/25 22:04 [place] # (Auto) 1.0 10^3/uL (0.2-0.9) H 07/30/25 22:04 Eos # (Auto) 0.2 10^3/uL (0.0-0.8) 07/30/25 22:04 Baso # (Auto) 0.1 10^3/uL (0.0-0.1) 07/30/25 22:04 Nucleated RBC % (auto) 0 % 07/30/25 22:04 Nucleated RBCs # 0.0 /100WBC 07/30/25 22:04 Sodium 136 mmol/L (136-145) 07/30/25 22:04 Potassium 3.8 mmol/L (3.5-5.1) 07/30/25 22:04 Chloride 105 mmol/L (98-107) 07/30/25 22:04 Carbon Dioxide 21 mmol/L (22-29) L 07/30/25 22:04 Anion Gap 13.8 (5-19) 07/30/25 22:04 BUN 20 mg/dL (6-20) 07/30/25 22:04 Creatinine 1.0 mg/dL (0.7-1.2) 07/30/25 22:04 GFR Calculation 76.7 mL/min (90-130) L 07/30/25 22:04 Glucose 130 mg/dL (65-115) H 07/30/25 22:04 Calculated Osmolality 286 mOsm/kg (285-295) 07/30/25 22:04 Calcium 8.9 mg/dL (8.5-10.5) 07/30/25 22:04 Total Bilirubin 0.5 mg/dL (0.15-1.2) 07/30/25 22:04 AST 65 U/L (0-40) H 07/30/25 22:04 ALT 37 U/L (0-41) 07/30/25 22:04 Alkaline Phosphatase 60 U/L (40-130) 07/30/25 22:04 Total Protein 7.1 g/dL (6.6-8.7) 07/30/25 22:04 Albumin 3.9 g/dL (3.5-5.2) 07/30/25 22:04 Globulin 3.2 g/dL (1.3-4.6) 07/30/25 22:04 Salicylates < 0.3 mg/dL (3-10) L 07/30/25 22:04 Urine Opiates Screen Negative ng/mL (Negative) 07/30/25 23:02 Acetaminophen < 5.0 ug/mL (10-30) L 07/30/25 22:04 Ur Barbiturates Screen Negative ng/mL (Negative) 07/30/25 23:02 Ur Phencyclidine Scrn Negative ng/mL (Negative) 07/30/25 23:02 Ur Amphetamines Screen Positive ng/mL (Negative) H 07/30/25 23:02 U Benzodiazepines Scrn Negative ng/mL (Negative) 07/30/25 23:02 Urine Cocaine Screen Negative ng/mL (Negative) 07/30/25 23:02 U Marijuana (THC) Screen Negative ng/mL (Negative) 07/30/25 23:02 Ethyl Alcohol < 10 mg/dL (0-10) 07/30/25 22:04 No radiology studies performed this visit Discharge Plan Discharge Patient Disposition: Admitted As Inpatient Admit Provider: Bakari Jaramillo Clinical Impression: Acute psychosis, Methamphetamine abuse Condition: Stable Coding Level of Care Code ED [employer] for [employer] Documented by User: Xu Hernandez Hans, DO 07/30/25 23:56 HPI - Psych 2 General: Chief Complaint: Psychiatric Symptoms Stated Complaint: Meth induced delusions Time Seen by Provider: 07/30/25 21:54 Related Data Home Medications ?Medication ?Instructions ?Recorded ?Confirmed esomeprazole magnesium 40 mg 40 mg PO DAILY 06/06/25 0 06/06/25 capsule,delayed release Previous Rx's ?Medication ?Instructions ?Recorded apixaban 5 mg tablet (Eliquis) 5 mg PO BID #180 tabs 0 05/04/24 lisinopril 20 mg tablet 20 mg PO DAILY #90 tabs 04/26 amlodipine 5 mg tablet 5 mg PO DAILY #90 tabs 01/23 metoprolol succinate 50 mg 50 mg PO DAILY #90 tabs 12/27 tablet,extended release 24 hr oxycodone-acetaminophen 10 mg-325 1 tab PO TID PRN hugo n 30 days #90 03/23/25 mg tablet tabs mupirocin 2 % topical ointment 1 applic topical BID #2 2 grams 03/28/25 (Centany) pantoprazole 20 mg tablet,delayed 20 mg PO DAILY #60 t abs 04/28/25 release (Protonix) atorvastatin 40 mg tablet See Rx Instructions .Route 0 05/19/25 .COMPLEX #90 tabs cyclobenzaprine 10 mg tablet See Rx Instructions .Rout e 05/22/25 .COMPLEX #90 tabs naproxen 500 mg tablet (Naprosyn) 500 mg PO BID PRN pa in #20 tabs 06/05/25 cephalexin 500 mg capsule 500 mg PO Q8H 10 days #30 ca ps 07/21/25 Allergies Allergy/AdvReac Type Severity Reaction Status Date / Time No Known Allergies Allergy Verified 07/20/25 19:01 [facility] ED 2 PFSH: Medical History Paroxysmal atrial fibrillation Methamphetamine abuse, episodic Leg edema, right Sleep apnea Left knee pain AMBROSE positive Hypertension Hypercholesteremia Lupus History of blood clots Heartburn History of traumatic head injury Surgical History Hx of cervical spine surgery Hx of tracheostomy Hx of colonoscopy 2019 History of esophagogastroduodenoscopy (EGD) Family History Sister Cancer lung, hodgkins lymphoma Other CAD (coronary artery disease) Chronic kidney disease (CKD) Hyperlipidemia Hypertension Lung disease Stroke Denies family history of Diabetes Clotting disorder Dementia Psychiatric illness Anesthesia complication Bleeding disorder Social History Smoking and tobacco/nicotine status: never used tobacco/nicotine Alcohol intake: never Substance/Drug Use: current Other substance/drug use details: Intermittent last was 5 weeks before 03/31/2025 Additional social history: Patient wants full code as discussed with Ronny Lee MD 03/31/2025 Lives independently: Yes Current occupational status: unemployed and disabled 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 There is reports that he was aggressive with other members, and was threatening violence. This was exacerbated by meth use of which she has a history of. Speaking with staff, they do not feel safe with the patient in their care, patient stating he wants to go back to rehab, denied SI/HI and was not confirmatory on hallucinations here in the ED. However spoke to Dr. Callahan who is agreeing to accept the patient into the neuropsychiatric unit for further evaluation. Patient was originally seen by Mr. Nelia PA-C. I agree with his history, evaluation, and treatment. Lab Data 07/30/25 22:04 07/30/25 22:04 Laboratory Results WBC 7.20 10^3/uL (3.29-11.43) 07/30/25 22:04 RBC 4.41 10^6/uL (3.85-5.65) 07/30/25 22:04 Hgb 13.80 g/dL (11.27-16.99) 07/30/25 22:04 Hct 41.0 % (37-53) 07/30/25 22:04 MCV 93.0 fl (82-101) 07/30/25 22:04 MCH 31.3 pg (27-33) 07/30/25 22:04 MCHC 33.7 g/dL (30-55) 07/30/25 22:04 RDW 14.3 % (12.1-15.1) 07/30/25 22:04 Plt Count 206 10^3/cmm (157-399) 07/30/25 22:04 MPV 9.9 fL (7.4-10.4) 07/30/25 22:04 Neut % (Auto) 63.0 % 07/30/25 22:04 Lymph % (Auto) 19.7 % 07/30/25 22:04 [place] % (Auto) 14.0 % 07/30/25 22:04 Eos % (Auto) 2.2 % 07/30/25 22:04 Baso % (Auto) 0.8 % 07/30/25 22:04 Neut # (Auto) 4.53 10^3/uL (1.8-7.7) 07/30/25 22:04 Lymph # (Auto) 1.4 10^3/uL (0.8-4.8) 07/30/25 22:04 [place] # (Auto) 1.0 10^3/uL (0.2-0.9) H 07/30/25 22:04 Eos # (Auto) 0.2 10^3/uL (0.0-0.8) 07/30/25 22:04 Baso # (Auto) 0.1 10^3/uL (0.0-0.1) 07/30/25 22:04 Nucleated RBC % (auto) 0 % 07/30/25 22:04 Nucleated RBCs # 0.0 /100WBC 07/30/25 22:04 Sodium 136 mmol/L (136-145) 07/30/25 22:04 Potassium 3.8 mmol/L (3.5-5.1) 07/30/25 22:04 Chloride 105 mmol/L (98-107) 07/30/25 22:04 Carbon Dioxide 21 mmol/L (22-29) L 07/30/25 22:04 Anion Gap 13.8 (5-19) 07/30/25 22:04 BUN 20 mg/dL (6-20) 07/30/25 22:04 Creatinine 1.0 mg/dL (0.7-1.2) 07/30/25 22:04 GFR Calculation 76.7 mL/min (90-130) L 07/30/25 22:04 Glucose 130 mg/dL (65-115) H 07/30/25 22:04 Calculated Osmolality 286 mOsm/kg (285-295) 07/30/25 22:04 Calcium 8.9 mg/dL (8.5-10.5) 07/30/25 22:04 Total Bilirubin 0.5 mg/dL (0.15-1.2) 07/30/25 22:04 AST 65 U/L (0-40) H 07/30/25 22:04 ALT 37 U/L (0-41) 07/30/25 22:04 Alkaline Phosphatase 60 U/L (40-130) 07/30/25 22:04 Total Protein 7.1 g/dL (6.6-8.7) 07/30/25 22:04 Albumin 3.9 g/dL (3.5-5.2) 07/30/25 22:04 Globulin 3.2 g/dL (1.3-4.6) 07/30/25 22:04 Salicylates < 0.3 mg/dL (3-10) L 07/30/25 22:04 Urine Opiates Screen Negative ng/mL (Negative) 07/30/25 23:02 Acetaminophen < 5.0 ug/mL (10-30) L 07/30/25 22:04 Ur Barbiturates Screen Negative ng/mL (Negative) 07/30/25 23:02 Ur Phencyclidine Scrn Negative ng/mL (Negative) 07/30/25 23:02 Ur Amphetamines Screen Positive ng/mL (Negative) H 07/30/25 23:02 U Benzodiazepines Scrn Negative ng/mL (Negative) 07/30/25 23:02 Urine Cocaine Screen Negative ng/mL (Negative) 07/30/25 23:02 U Marijuana (THC) Screen Negative ng/mL (Negative) 07/30/25 23:02 Ethyl Alcohol < 10 mg/dL (0-10) 07/30/25 22:04 Discharge Plan Discharge Patient Disposition: Admitted As Inpatient Admit Provider: Bakari Jaramillo Clinical Impression: Acute psychosis, Methamphetamine abuse Condition: Stable Coding Level of Care Code ED [employer] Superintendent for Bernarda Kingsley
[2025-07-30 23:17] LABS: PCP Screen Urine Negative (Negative)
[2025-07-31 00:08] VITALS: BP 131/91; PULSE 89; RESP 20; TEMP 36.6; O2SAT 96
--- NOTE | 2025-07-31 12:20 | PC.NURSE ---
Pt. stated he has a torn ACL and meniscus on left knee. Stated this happened over a year ago and he was unable to have surgery because he went to [facility]. Stated he has been unable to walk now for 2 days d/t a flare up of the knee.
[2025-07-31 14:00] VITALS: BP 126/82; PULSE 90; RESP 16; TEMP 36.8; O2SAT 95
--- NOTE | 2025-07-31 19:00 | P.NPUHP_ITS ---
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 The patient was admitted to the neuropsychiatric unit for further evaluation and treatment. He reports that he had been at [facility] for inpatient substance abuse treatment and after discharge from there he had been placed at the [facility] for the past 2 days. He had reported that during that time, he had been having increased pain in his left knee and stated that he needed to get help with having surgery in his knee. He had stated that he had previously been evaluated and was scheduled to have knee surgery here at [facility] but due to the patient getting into some nonspecific trouble, the surgery was canceled. He denies any hallucinations at this time. He does report that he needs to go back to rehabilitation as he stated that methamphetamine has killed him. He had endorsed a past history of repeated use of methamphetamine despite adverse consequences. He denies any current auditory or visual hallucinations. He had reported a past history when intoxicated of having some paranoia. The patient has refused any or denied any suicidal ideation or homicidal ideation at this time. He denies any other drug use. Patient is a 60-year-old male with past medical history of substance abuse who presents to the emergency department due to aggressive behavior and hallucinations. He is brought in by staff from [facility], where he has been staying following rehab stay at [facility]. [facility] says that he, for the past 24 hours, has been very aggressive with other members, threatening to harm them and that he has appeared to relapse on meth use. He has not made any statements of hurting himself, and has not had any specific method of hurt anyone else, however they are concerned due to the nature of his threats and feel that he is not safe to be in their care. Patient here is calm and cooperative, he is stating that he does not feel SI or HI at this time and denies any of this happening. When I ask him if he is having any hallucinations, he tells me I am having hallucinations because they told me to say that. He states that he does want back in a rehab admits to methamphetamine use, states he does not know where else to go. I did speak to staff, they state that they to did not know where else to take the patient as he was showing increasing signs of instability this evening. The patient's urine was positive for amphetamines. Inpatient psychiatric history: He had reported no history of inpatient psychiatric hospitalization. Substance abuse history: He reports beginning use of methamphetamine at the age of 16 and reported having been placed in numerous inpatient substance abuse rehabilitation facilities. He denied any current alcohol use or opiate use. Medical history: Pyelonephritis, sepsis, atrial fibrillation, hypothyroidism, sleep apnea, left knee pain, lumbar stenosis, history of lumbar laminectomy, history of C1 cervical fracture, pilonidal cysts. Degenerative disc disease, cervical myelopathy with cervical radiculopathy, history of cervical stenosis, GERD, hypertension, hypercholesterolemia, diverticulosis Surgical history: History of cervical spinal fusion, history of lumbar laminectomy, Allergies: No known drug allergies Medications: Apixaban 5 mg twice a day, amlodipine 5 mg daily, atorvastatin 40 mg at night, cyclobenzaprine, esomeprazole, lisinopril, Family psychiatric history: Alcoholism and polysubstance abuse in sister and brother. Legal history: He had reported having served 15 years in nursing home on a 25-year. After being charged with methamphetamine distribution in [place]. Social history: Patient reports he is currently homeless. He had reported that he had been once and is . He has 11 children from 10 different women. He reports that he dropped out of school in the eighth grade. He states he was raised by his mother. He had reported that he began using drugs while living in [place] at the age of 16. He had reported no history of problems with learning. Meds NPU Home Medications ?Medication ?Instructions ?Recorded ?Confirmed ?Last Taken ?Type apixaban 5 mg tablet (Eliquis) 5 mg PO BID #180 tabs 0 05/04/24 07/31/25 06/04/25 Rx lisinopril 20 mg tablet 20 mg PO DAILY #90 tabs 01/0 04/2607/31/25 1 Day Ago Rx ~07/30/25 amlodipine 5 mg tablet 5 mg PO DAILY #90 tabs 01/2307/31/25 06/04/25 Rx metoprolol succinate 50 mg 50 mg PO DAILY #90 tabs 12/2707/31/25 06/04/25 Rx tablet,extended release 24 hr mupirocin 2 % topical ointment 1 applic topical BID #2 2 grams 03/28/25 07/31/25 03/30/25 Rx (Centany) pantoprazole 20 mg tablet,delayed 20 mg PO DAILY #60 t abs 04/28/25 07/31/25 1 Day Ago Rx release (Protonix) ~07/30/25 atorvastatin 40 mg tablet See Rx Instructions .Route 0 05/19/25 07/31/25 06/04/25 Rx .COMPLEX #90 tabs cyclobenzaprine 10 mg tablet See Rx Instructions .Rout e 05/22/25 07/31/25 Unknown Rx .COMPLEX #90 tabs naproxen 500 mg tablet (Naprosyn) 500 mg PO BID PRN pa in #20 tabs 06/05/25 07/31/25 1 Day Ago Rx ~07/30/25 esomeprazole magnesium 40 mg 40 mg PO DAILY 06/06/25 0 07/31/25 1 Day Ago History capsule,delayed release ~07/30/25 cephalexin 500 mg capsule 500 mg PO Q8H 10 days #30 ca ps 07/21/25 07/31/25 1 Day Ago Rx ~07/30/25 Allergies Allergy/AdvReac Type Severity Reaction Status Date / Time No Known Allergies Allergy Verified 07/20/25 19:01 PFSH NPU 2 PFSH: Medical History (Updated 07/31/25 @ 19:22 by Bakari Jaramillo MD) Paroxysmal atrial fibrillation Methamphetamine abuse, episodic Leg edema, right Sleep apnea Left knee pain AMBROSE positive Hypertension Hypercholesteremia Lupus History of blood clots Heartburn History of traumatic head injury Surgical History Hx of cervical spine surgery Hx of tracheostomy Hx of colonoscopy 2019 History of esophagogastroduodenoscopy (EGD) Family History Sister Cancer lung, hodgkins lymphoma Other CAD (coronary artery disease) Chronic kidney disease (CKD) Hyperlipidemia Hypertension Lung disease Stroke Denies family history of Diabetes Clotting disorder Dementia Psychiatric illness Anesthesia complication Bleeding disorder Social History Smoking and tobacco/nicotine status: never used tobacco/nicotine Alcohol intake: never Substance/Drug Use: current Other substance/drug use details: Intermittent last was 5 weeks before 03/31/2025 Additional social history: Patient wants full code as discussed with Ronny Lee MD 03/31/2025 Lives independently: Yes Current occupational status: unemployed and disabled 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 His gait was not tested. His hygiene was poor. There was no evidence of any abnormal involuntary motor movements, tics, or tremors appreciated. His mood was described as not so good. His affect appeared dysphoric. His thought process was linear, logical, and goal-directed. His thought content revealed no suicidal or homicidal ideation. There was no evidence of any delusional thinking. He did not appear to be responding to internal stimuli. He denied any auditory or visual hallucinations. His attention span appeared variable. His insight is poor. His judgment is poor. His impulse control appeared limited. His recent and remote memory appeared grossly intact. Vitals/I&O/Wt Last Vital Signs Temp 98.2 F 07/31/25 14:00 Pulse 90 07/31/25 14:00 Resp 16 07/31/25 14:00 BP 126/82 07/31/25 14:00 Pulse Ox 95 07/31/25 14:00 O2 Del Method Room Air 07/31/25 14:00 Weight last 48 hrs Weight 108.862 kg Weight 127.006 kg Data NPU 07/30/25 22:04 07/30/25 22:04 A&P Assessment and plan 1. Depression, unspecified: 2. Methamphetamine abuse: Plan: 60-year-old male currently homeless admitted after endorsing hallucinations and suicidal ideation and now endorsing no psychosis and no lethality. He is requesting help for management of his pain. 1. restart outpatient medications 2. Evaluate for suicidality and psychosis 3. encourage individual, milieu and group therapy. 4. refer for orthopedics. 5. Refer to prison outpatient. PDMP PDMP Reviewed: Not Reviewed Involuntary Hold Information 2 Hold Status: Date/Time Hold Expires: voluntary Attestations NPU 2 Medical Necessity Statement*: Inpatient hospitalization is medically necessary and the clinically appropriate intervention at this time. We will monitor/initiate medications and make changes as indicated. He will be in the hospital for over 2 midnights. His likely length of stay is 2-3 days. Coding Level of Care Code Acute Code for [facility] Fwd Diagnoses Depression, unspecified F32.A Methamphetamine abuse F15.10
[2025-07-31 22:00] VITALS: BP 129/76; PULSE 93; RESP 17; TEMP 37; O2SAT 95
[2025-08-01 06:00] VITALS: BP 126/85; PULSE 94; RESP 16; TEMP 37.1; O2SAT 93
[2025-08-01 13:55] VITALS: BP 145/89; PULSE 109; RESP 18; TEMP 37.1; O2SAT 93
--- NOTE | 2025-08-01 17:22 | P.NPUPN_ITS ---
Subjective NPU 2 Subjective: 60-year-old male admitted with depressio n and suicidal ideation currently reporting intractable pain in his knee. Patient had isolate himself on the milieu. He appeared to tolerate his medications without issue. He had reported that his knee pain was considerable. Mental Status Exam 2 MSE Comments: The patient was lying in bed and appeared in significant pain as he was unable to ambulate. His gait was not tested. His hygiene was poor. There was no evidence of any abnormal involuntary motor movements, tics, or tremors appreciated. His mood was described as okay. His affect appeared irritable. His thought process was linear, logical, and goal-directed. His thought content revealed suicidal ideation but no homicidal ideation. 6 there was no evidence of any delusional thinking. He did not appear to be responding to internal stimuli. He denied any auditory or visual hallucinations. His attention span appeared variable. His insight is poor. His judgment is poor. His impulse control appeared limited. His recent and remote memory appeared grossly intact. Vitals/I&O/Wt Last Vital Signs Temp 98.8 F 08/01/25 13:55 Pulse 109 H 08/01/25 13:55 Resp 18 08/01/25 13:55 BP 145/89 08/01/25 13:55 Pulse Ox 93 08/01/25 13:55 O2 Del Method Room Air 08/01/25 06:00 Weight last 48 hrs Weight 108.862 kg Weight 127.006 kg Data NPU 07/30/25 22:04 07/30/25 22:04 A&P Assessment and plan 1. Depression, unspecified: 2. Methamphetamine abuse: Plan: 60-year-old male currently homeless admitted after endorsing hallucinations and suicidal ideation and now endorsing no psychosis and no lethality. He is requesting help for management of his pain. 1. restart outpatient medications including wellbutrin xl and mirtazipine as prescribed. Patient has been seen by orthopedic surgery previously and they expressed concern about following as he had been selling or misusing opiate medications prescribed. 2. Evaluate for suicidality and psychosis 3. encourage individual, milieu and group therapy. 4. Refer to retirement. PDMP PDMP Reviewed: Not Reviewed Involuntary Hold Information 2 Hold Status: Date/Time Hold Expires: voluntary Attestations NPU 2 Medical Necessity Statement*: Inpatient hospitalization is medically necessary and the clinically appropriate intervention at this time. We will monitor/initiate medications and make changes as indicated. His likely length of stay is 2-3 days. Coding Level of Care Code Acute Code for [facility] Fwd Diagnoses Depression, unspecified F32.A Methamphetamine abuse F15.10
[2025-08-01] MEDS: blistex lip oint 7 gm Tube 1 APPLIC TOPICAL (19:05)
[2025-08-01 22:00] VITALS: BP 131/89; PULSE 96; RESP 17; TEMP 37.1; O2SAT 96
[2025-08-02 06:00] VITALS: BP 118/69; PULSE 107; RESP 18; TEMP 37.1; O2SAT 92
[2025-08-02] MEDS: blistex lip oint 7 gm Tube 1 APPLIC TOPICAL (08:51)
[2025-08-02 13:40] VITALS: BP 127/90; PULSE 106; RESP 18; TEMP 36.6; O2SAT 92
--- NOTE | 2025-08-02 16:06 | P.NPUPN_ITS ---
Subjective NPU 2 Subjective: 60-year-old male admitted with depressio n and suicidal ideation currently reporting intractable pain in his knee. Patient had isolate himself on the milieu. Patient remained in his bed. He had not endorsed any thoughts of hurting himself or others. He had reported adequate sleep. He continued to report having pain in his knee. He continued to report that he was homeless. He had reported that his surgery had been canceled on his knee several months ago. Mental Status Exam 2 MSE Comments: The patient was lying in bed and appeared in significant pain as he was unable to ambulate. His gait was not tested. His hygiene was fair. There was no evidence of any abnormal involuntary motor movements, tics, or tremors appreciated. His mood was described as allright. His affect appeared slightly irritable. His thought process was linear, logical, and goal-directed. His thought content revealed no suicidal ideation or homicidal ideation. There was no evidence of any delusional thinking. He did not appear to be responding to internal stimuli. He denied any auditory or visual hallucinations. His attention span appeared poor. His insight is poor. His judgment is poor. His impulse control appeared limited. His recent and remote memory appeared grossly intact. Vitals/I&O/Wt Last Vital Signs Temp 97.8 F 08/02/25 13:40 Pulse 106 H 08/02/25 13:40 Resp 18 08/02/25 13:40 BP 127/90 08/02/25 13:40 Pulse Ox 92 08/02/25 13:40 O2 Del Method Room Air 08/02/25 13:40 08/02/25 08/02/25 08/02/25 06:59 14:59 22:59 Intake Total 1160 / 1160 Output Total 900 / 900 Balance 260 / 260 Data NPU 07/30/25 22:04 07/30/25 22:04 A&P Assessment and plan 1. Depression, unspecified: 2. Methamphetamine abuse: Plan: 60-year-old male currently homeless admitted after endorsing hallucinations and suicidal ideation and now endorsing no psychosis and no lethality. He is requesting help for management of his pain. 1. restart outpatient medications including wellbutrin xl and mirtazipine as prescribed. Patient has been seen by orthopedic surgery previously and they expressed concern about following as he had been selling or misusing opiate medications prescribed. 2. Medical consult for pain management here versus surgery on knee. 3. encourage individual, milieu and group therapy. 4. Refer to [facility]. PDMP PDMP Reviewed: Not Reviewed Involuntary Hold Information 2 Hold Status: Date/Time Hold Expires: voluntary Attestations NPU 2 Medical Necessity Statement*: Inpatient hospitalization is medically necessary and the clinically appropriate intervention at this time. We will monitor/initiate medications and make changes as indicated. His likely length of stay is 2-3 days. Coding Level of Care Code Acute Code for [facility] Fwd Diagnoses Depression, unspecified F32.A Methamphetamine abuse F15.10
[2025-08-02 16:54] VITALS: BP 136/90; PULSE 103; RESP 16; TEMP 36.8; O2SAT 93
--- NOTE | 2025-08-02 17:58 | P.CONIM_ITS ---
Providers/Reason For Consult 2 Consulting Physician/Specialty*: Ronny Lee MD hospitalist Reason for Consult*: Left knee pain Requesting Physician: Bakari Jaramillo MD Attending Physician: Bakari Jaramillo MD Primary Care Provider: Derek Jackson MD History of Present Illness History of Present Illness Wyatt Hoffman Jr is a 60 year old male who is admitted with depression and suicidal ideation. He was seen by Dr. Schuster for left knee meniscal injuries and tear and states he was scheduled to have surgery. Patient states he missed appointment and got into trouble with surgery counseled. Patient denies that there was any problem with his pain meds. Patient not able to walk well with left knee swelling and Dr. Jaramillo called and spoke with Dr. Be who says the patient was dismissed from service due to pain med diversion. I am asked to see the patient regarding a plan for pain management. Patient states his knee is painful when walking. Patient admits to sleep apnea but states he is not able to wear CPAP as he is currently homeless Medications/Allergies Home Medications ?Medication ?Instructions ?Recorded ?Confirmed ?Last Taken ?Type apixaban 5 mg tablet (Eliquis) 5 mg PO BID #180 tabs 0 05/04/24 07/31/25 06/04/25 Rx lisinopril 20 mg tablet 20 mg PO DAILY #90 tabs /04/2607/31/25 1 Day Ago Rx ~07/30/25 amlodipine 5 mg tablet 5 mg PO DAILY #90 tabs 01/2307/31/25 06/04/25 Rx metoprolol succinate 50 mg 50 mg PO DAILY #90 tabs 12/2707/31/25 06/04/25 Rx tablet,extended release 24 hr mupirocin 2 % topical ointment 1 applic topical BID #2 2 grams 03/28/25 07/31/25 03/30/25 Rx (Centany) pantoprazole 20 mg tablet,delayed 20 mg PO DAILY #60 t abs 04/28/25 07/31/25 1 Day Ago Rx release (Protonix) ~07/30/25 atorvastatin 40 mg tablet See Rx Instructions .Route 0 05/19/25 07/31/25 06/04/25 Rx .COMPLEX #90 tabs cyclobenzaprine 10 mg tablet See Rx Instructions .Rout e 05/22/25 07/31/25 Unknown Rx .COMPLEX #90 tabs naproxen 500 mg tablet (Naprosyn) 500 mg PO BID PRN pa in #20 tabs 06/05/25 07/31/25 1 Day Ago Rx ~07/30/25 esomeprazole magnesium 40 mg 40 mg PO DAILY 06/06/25 0 07/31/25 1 Day Ago History capsule,delayed release ~07/30/25 cephalexin 500 mg capsule 500 mg PO Q8H 10 days #30 ca ps 07/21/25 07/31/25 1 Day Ago Rx ~07/30/25 Allergies Allergy/AdvReac Type Severity Reaction Status Date / Time No Known Allergies Allergy Verified 07/20/25 19:01 Current Medications Generic Name Dose Route Start Last Admin Trade Name Freq PRN Reason Stop Dose Admin Acetaminophen 650 mg 07/31/25 00:08 07/31/25 02:08 Acetaminophen 325 Mg Tablet PO 650 mg Q4H PRN Administration MILD PAIN Amlodipine Besylate 5 mg 07/31/25 09:00 08/02/25 08:51 Amlodipine 5 Mg Tablet PO 5 mg DAILY SONNY Administration Baclofen 10 mg 07/31/25 07:34 08/01/25 19:46 Baclofen 10 Mg Tablet PO 08/30/25 07:31 10 mg QID PRN Administration MUSCLE SPASMS Bupropion HCl 150 mg 08/01/25 09:00 08/02/25 08:51 Bupropion Xl (24 Hr) 150 Mg Tablet PO 150 mg DAILY SONNY Administration Camphor/Menthol/Phenol 1 applic 07/31/25 00:08 08/02/25 08:51 Blistex Lip Oint 7 Gm Tube TOPICAL 1 applic Q1H PRN Administration DRYNESS Hydroxyzine Pamoate 50 mg 07/31/25 00:08 08/01/25 19:46 Hydroxyzine 25 Mg Capsule PO 50 mg Q6H PRN Administration ANXIETY Ibuprofen 600 mg 07/31/25 00:13 08/02/25 08:51 Ibuprofen 600 Mg Tablet PO 600 mg Q6H PRN Administration MODERATE PAIN Lisinopril 20 mg 07/31/25 09:00 08/02/25 08:51 Lisinopril 20 Mg Tablet PO 20 mg DAILY SONNY Administration Mirtazapine 30 mg 07/31/25 21:00 08/01/25 19:46 Mirtazapine 30 Mg Tablet PO 30 mg BEDTIME SONNY Administration Naproxen 500 mg 07/31/25 07:25 07/31/25 12:18 Naproxen 500 Mg Tablet PO 500 mg BID PRN Administration PAIN Pantoprazole Sodium 40 mg 07/31/25 09:00 08/02/25 08:[address] 40 Mg Tablet PO 40 mg DAILY SONNY Administration Trazodone HCl 50 mg 07/31/25 00:08 08/01/25 19:46 Trazodone 50 Mg Tablet PO 50 mg BEDTIME PRN Administration SLEEP PFSH Acute 2 PFSH: Medical History (Updated 08/02/25 @ 18:06 by Ronny Lee MD) Degeneration of medial meniscus of left knee Paroxysmal atrial fibrillation Methamphetamine abuse, episodic Leg edema, right Sleep apnea Left knee pain AMBROSE positive Hypertension Hypercholesteremia Lupus History of blood clots Heartburn History of traumatic head injury Surgical History Hx of cervical spine surgery Hx of tracheostomy Hx of colonoscopy 2019 History of esophagogastroduodenoscopy (EGD) Family History Sister Cancer lung, hodgkins lymphoma Other CAD (coronary artery disease) Chronic kidney disease (CKD) Hyperlipidemia Hypertension Lung disease Stroke Denies family history of Diabetes Clotting disorder Dementia Psychiatric illness Anesthesia complication Bleeding disorder Social History Smoking and tobacco/nicotine status: never used tobacco/nicotine Alcohol intake: never Substance/Drug Use: current Other substance/drug use details: Intermittent last was 5 weeks before 03/31/2025 Additional social history: Patient wants full code as discussed with Ronny Lee MD 03/31/2025 Lives independently: Yes Current occupational status: unemployed and disabled 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 Special lena needs: No Agree to transfusion: Yes Vitals/I&O/Wt Last Vital Signs Temp 98.2 F 08/02/25 16:54 Pulse 103 H 08/02/25 16:54 Resp 16 08/02/25 16:54 BP 136/90 08/02/25 16:54 Pulse Ox 93 08/02/25 16:54 O2 Del Method Room Air 08/02/25 16:54 08/02/25 08/02/25 08/02/25 06:59 14:59 22:59 Intake Total 1160 / 1160 360 / 1520 Output Total 900 / 900 Balance 260 / 260 360 / 620 Physical Exam 2 Narrative: General well-developed well-nourished male in no acute cardiopulmonary stress CV regular rate and rhythm Lungs clear to auscultation bilaterally Right knee unremarkable and no effusion Left knee mild increased warmth but no erythema there is a large effusion noted with swelling primarily at the left upper outer quadrant of the knee but there is obvious fluid displacement to the medial on compression. This is minimally tender on exam Data 07/30/25 22:04 07/30/25 22:04 MRI: Radiologist's impression: 1. Diffuse abnormal thickened appearance of the ACL with increased T1 and T2 signal abnormality likely due to diffuse extensive mucoid degeneration. Recommend correlation with ACL integrity and prior injury. 2. PCL appears intact. 3. Radial tear involving the posterior horn medial meniscus with an additional suspected tiny horizontal tear involving the anterior horn medial meniscus. 4. Lateral meniscus appears intact. 5. Grade III chondromalacia patella. 6. Complex lobulated popliteal cyst 1.4 x 2.3 x 4.1 cm AP by transverse by craniocaudal. Outbridge grading: grade III: partial-thickness cartilage loss with focal ulceration This is from 01/20/2025 A&P Assessment and plan 1. 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 Further consideration for surgery up to evaluating surgeon. 2. Left knee pain: Plan: Continue with NSAIDs. Patient has a large effusion. Last uric acid was 5.3 in 2022. Knee is not red or warm to touch to suggest gout. 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
[2025-08-02 19:56] VITALS: BP 142/92; PULSE 100; RESP 18; TEMP 37.1; O2SAT 94
[2025-08-03 06:00] VITALS: BP 130/87; PULSE 97; RESP 18; TEMP 36.6; O2SAT 94
[2025-08-03 14:00] VITALS: BP 118/70; PULSE 104; RESP 16; TEMP 37.3; O2SAT 92
--- NOTE | 2025-08-03 15:12 | P.NPUPN_ITS ---
Subjective NPU 2 Subjective: 60-year-old male admitted with depressio n and suicidal ideation currently reporting intractable pain in his knee. The patient minimized any suicidal ideation this time. The patient had no side effects from his medications. He had been compliant on the milieu and spent much of the day in his room. He continued to report having severe knee pain. He had denied having any thoughts of hurting himself or others. He had reported that he was homeless. Mental Status Exam 2 MSE Comments: The patient was lying in bed and appeared in significant pain as he was unable to ambulate. His gait was not tested. His hygiene was fair. There was no evidence of any abnormal involuntary motor movements, tics, or tremors appreciated. His mood was described as okay. His affect appeared slightly irritable. His thought process was linear, logical, and goal-directed. His thought content revealed no suicidal ideation or homicidal ideation. There was no evidence of any delusional thinking. He did not appear to be responding to internal stimuli. He denied any auditory or visual hallucinations. His attention span appeared poor. His insight is poor. His judgment is improving. His impulse control appeared limited. His recent and remote memory appeared grossly intact. Vitals/I&O/Wt Last Vital Signs Temp 99.1 F 08/03/25 14:00 Pulse 104 H 08/03/25 14:00 Resp 16 08/03/25 14:00 BP 118/70 08/03/25 14:00 Pulse Ox 92 08/03/25 14:00 O2 Del Method Room Air 08/03/25 14:00 Data NPU 07/30/25 22:04 07/30/25 22:04 A&P Assessment and plan 1. Depression, unspecified: 2. Methamphetamine abuse: Plan: 60-year-old male currently homeless admitted after endorsing hallucinations and suicidal ideation and now endorsing no psychosis and no lethality. He is requesting help for management of his pain. 1. restart outpatient medications including wellbutrin xl and mirtazipine as prescribed. Patient has been seen by orthopedic surgery previously and they expressed concern about following as he had been selling or misusing opiate medications prescribed. 2. Appreciate medical consult. Continue with NSAIDS as prescribed. 3. encourage individual, milieu and group therapy. 4. Refer to prison. PDMP PDMP Reviewed: Not Reviewed Involuntary Hold Information 2 Hold Status: Date/Time Hold Expires: voluntary Attestations NPU 2 Medical Necessity Statement*: Inpatient hospitalization is medically necessary and the clinically appropriate intervention at this time. We will monitor/initiate medications and make changes as indicated. His likely length of stay is 2-3 days. Coding Level of Care Code Acute Code for g Fwd Diagnoses Depression, unspecified F32.A Methamphetamine abuse F15.10
[2025-08-03 20:09] VITALS: BP 132/92; PULSE 109; RESP 18; TEMP 36.4; O2SAT 94
[2025-08-04 06:00] VITALS: BP 114/74; PULSE 101; RESP 16; TEMP 36.9; O2SAT 94
[2025-08-04 13:46] VITALS: BP 112/72; PULSE 104; RESP 16; TEMP 36.6; O2SAT 94
--- NOTE | 2025-08-04 14:18 | P.NPUPN_ITS ---
Subjective NPU 2 Subjective: Patient presented today reporting that he is doing okay. He reports that he has a desire to discharge and stay with a friend and says that will help him as he is awaiting his bed date for rehab and needing to get some on the surgery front. We discussed the fact that it is our desire that people leave with appointments for things that are pressing and his estranged relationship with local surgical services creates a situation where he will have to explore options for surgery independently. We discussed attempting to get him an appointment with a PCP to assist towards that and and thus far that has not been completed. But we also except his autonomy and not being on a hold and so he agreed we could work on those things and that we would discharge tomorrow if he continued to want to leave minus those services. He denied any side effects to the medication. Mental Status Exam 2 MSE Comments: The patient was lying in bed and appeared in significant pain as he was unable to ambulate. His gait was not tested. His hygiene was fair. There was no evidence of any abnormal involuntary motor movements, tics, or tremors appreciated. His mood was described as okay. His affect appeared slightly irritable. His thought process was linear, logical, and goal-directed. His thought content revealed no suicidal ideation or homicidal ideation. There was no evidence of any delusional thinking. He did not appear to be responding to internal stimuli. He denied any auditory or visual hallucinations. His attention span appeared poor. His insight is poor. His judgment is improving. His impulse control appeared limited. His recent and remote memory appeared grossly intact. Vitals/I&O/Wt Last Vital Signs Temp 98 F 08/04/25 13:46 Pulse 104 H 08/04/25 13:46 Resp 16 08/04/25 13:46 BP 112/72 08/04/25 13:46 Pulse Ox 94 08/04/25 13:46 O2 Del Method Room Air 08/04/25 13:46 Data NPU 07/30/25 22:04 07/30/25 22:04 A&P Assessment and plan 1. Depression, unspecified: 2. Methamphetamine abuse: Plan: 60-year-old male currently homeless admitted after endorsing hallucinations and suicidal ideation and now endorsing no psychosis and no lethality. He is requesting help for management of his pain. 1. restart outpatient medications including wellbutrin xl and mirtazipine as prescribed. Patient has been seen by orthopedic surgery previously and they expressed concern about following as he had been selling or misusing opiate medications prescribed. 2. Appreciate medical consult. Continue with NSAIDS as prescribed. 3. encourage individual, milieu and group therapy. 4. Refer to residential. 5. 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 We discussed the possibility of discharge tomorrow absent some of these providers given his desire to leave in a way that is faster than the treatment team would like as we attempt to resolve those needs. PDMP PDMP Reviewed: Not Reviewed Involuntary Hold Information 2 Hold Status: Date/Time Hold Expires: voluntary Attestations NPU 2 Medical Necessity Statement*: Inpatient hospitalization is medically necessary and the clinically appropriate intervention at this time. We will monitor/initiate medications and make changes as indicated. His likely length of stay is 1-3 days. Coding Level of Care Code Acute Code for [facility] Diagnoses Depression, unspecified F32.A Methamphetamine abuse F15.10
--- NOTE | 2025-08-04 16:49 | DCPLANNER ---
Imm was given to pt and rights explained and copy placed in file.
--- NOTE | 2025-08-04 17:02 | DCPLANNER ---
Imm was given to pt and rights explained, and copy placed in file
[2025-08-04 19:38] VITALS: BP 148/98; PULSE 93; RESP 16; TEMP 36.6; O2SAT 96
[2025-08-04 19:39] VITALS: BP 115/76
[2025-08-05 06:00] VITALS: BP 105/73; PULSE 104; RESP 18; TEMP 36.6; O2SAT 94
[2025-08-05 10:45] VITALS: BP 113/75; PULSE 105; TEMP 37.6; O2SAT 94
--- NOTE | 2025-08-05 11:54 | PC.NURSE ---
Reviewed discharge instructions with patient. All questions were answered. Patient verbalized understanding. Rosemary took patient to his step sisters [facility].
== END 2025-08-05 11:48 | disposition home or self-care (01) | DRG 897 ==
LOC: ER 23:21 → NP 23:49
PROVIDERS: Admitting Provider Psychiatry & Neurology Psychiatry; Emergency Provider Physician Assistant; PCP Internal Medicine; Visit Provider Psychiatry & Neurology Psychiatry
DX: F15.159 Other stimulant abuse with stimulant-induced psychotic disorder, unspecified (principal); Z59.00 Homelessness unspecified; R45.851 Suicidal ideations; I10 Essential (primary) hypertension; Z81.1 Family history of alcohol abuse and dependence; Z81.3 Family history of other psychoactive substance abuse and dependence; Z82.49 Family history of ischemic heart disease and other diseases of the circulatory system; I48.0 Paroxysmal atrial fibrillation; Z79.01 Long term (current) use of anticoagulants; K21.9 Gastro-esophageal reflux disease without esophagitis; F32.A Depression, unspecified; M23.304 Other meniscus derangements, unspecified medial meniscus, left knee
CPT/HCPCS: 36415; 80053; 80306; 80307; 85025; 97165; 99285; J9999